=== PATIENT | female | born 1955 | race American Indian/Alaskan Native ===

== ENCOUNTER 2016-08-22 17:04 | Inpatient (IN) | payer MEDICARE, MEDICAID ==
[2016-08-22 17:05] VITALS: BMI 42.3
[2016-08-22] MEDS ORDERED: cefTRIAXone IV 1 gm in Dextros 50 ML IV ONE (17:31)
[2016-08-22] MEDS ORDERED: Azithromycin 500 MG in Sodium Chloride 0.9% 250 ML IV STA (17:32)
[2016-08-22] MEDS ORDERED: Sodium Chloride 0.9% 1,000 ML IV ONE ×2 (17:32→20:53)
[2016-08-22] MEDS ORDERED: Enoxaparin 40 mg Syringe SC STA (17:33)
[2016-08-22] MEDS ORDERED: Albuterol-Ipratrop 3 mg / 0.5 (3 ml) UD INH STA (17:38)
[2016-08-22] MEDS ORDERED: Iodixanol 320 MG/ML 100 ML BOTTLE IV ONE (18:08)
[2016-08-22 18:23] LABS: BASO # 0.1 K/uL (0.0-0.2); BASO % 0.9 % (0.0-2.0); EOS # 0.2 K/uL (0.0-0.7); EOS % 3.1 % (0.0-4.0); HEMATOCRIT 34.7 % (34.0-47.0); LYMPH % 16.3 % (20.0-40.0); MEAN CELL VOLUME 93.7 fL (81.0-99.0); MEAN CORPUSCULAR HEMOGLOBIN 29.9 pg (27.0-31.0); MEAN CORPUSCULAR HGB CONC 31.9 g/dL (33.0-37.0); MEAN PLATELET VOLUME 7.6 fL (7.2-11.7); MONO # 0.7 K/uL (0.0-0.8); MONO % 11.4 % (0.0-10.0); RED CELL DISTRIBUTION WIDTH 16.7 % (11.5-14.5); WHITE BLOOD COUNT 6.1 K/uL (4.8-10.8)
[2016-08-22 18:23] LABS: VENOUS BLOOD GAS BASE EXCESS 9.7 mmol/L (0.0-2.0); VENOUS BLOOD GAS PCO2 69 mmHg (40-60); VENOUS BLOOD PH 7.35 (7.32-7.43)
[2016-08-22 18:29] LABS: BILIRUBIN,TOTAL 0.6 mg/dL (0.2-1.3)
[2016-08-22 18:30] LABS: ALB/GLOB RATIO 1.1 (1.0-2.1); TOTAL PROTEIN 7.4 g/dL (6.3-8.3)
[2016-08-22] MEDS ORDERED: Sodium Chloride 0.9% 1,000 ML ONE (18:33)
[2016-08-22] MEDS ORDERED: cefTRIAXone IV 1 gm in Dextros 50 ML IVPB ONE (18:38)
[2016-08-22] MEDS ORDERED: Enoxaparin 60 mg Syringe ONE (18:39)
[2016-08-22] MEDS ORDERED: Enoxaparin 30 mg Syringe ONE (18:39)
[2016-08-22 18:41] LABS: TROPONIN I 0.014 ng/mL (0.00-0.120)
[2016-08-22] MEDS ORDERED: Albuterol-Ipratrop 3 mg / 0.5 (3 ml) UD ONE (18:45)
--- NOTE | 2016-08-22 18:47 | C.PDOC ---
History Of Present Illness 60 yr old female brought by family members, presents to the ER for deteriorating mental status and lethargy, cough and SOB for the past 1 month. Patient is sent by Dr. Pritchett for an evaluation. Denies nausea, vomiting or dizziness. Time Seen by Provider: 08/22/16 17:29 Chief Complaint (Nursing): Weakness/Neurological Deficit Past Medical History Vital Signs: Last Vital Signs Temp Pulse 86 08/23/16 00:38 Resp 12 08/22/16 22:00 BP 103/72 08/22/16 22:00 Pulse Ox 88 L 08/23/16 00:57 - Medical History PMH: Anemia, COPD, Depression, Diabetes, Gastritis, HTN, Hypercholesterolemia, Malignancy (LUNG MASS) Denies: Chronic Kidney Disease Surgical History: Endoscopy - [facility] Procedures CLOSED [PERCUTANEOUS] [NEEDLE] BIOPSY OF LUNG (02/03/13) ESOPHAGOGASTRODUODENOSCOPY [EGD] W/CLOSED BIOPSY (02/03/13) FIBER-OPTIC BRONCHOSCOPY (04/21/13) INSERTION OF TOTALLY IMPLANTABLE VASC ACCESS DEVIC (09/22/14) LYMPHATIC STRUCT BIOPSY (04/21/13) OPEN BIOPSY OF LUNG (02/03/13) PACKED CELL TRANSFUSION (04/21/13) RADICAL EXCIS SKIN LES (11/21/13) RADIOTHERAPEUT PROC NEC (05/06/13) VENOUS CATHETERIZATION NEC (02/03/13) Family History: States: Unknown Family Hx - Social History Hx Tobacco Use: No Hx Alcohol Use: Yes (Former.) Hx Substance Use: No - Immunization History Hx Tetanus Toxoid Vaccination: No Hx Influenza Vaccination: Yes Hx Pneumococcal Vaccination: Yes Review Of Systems Except As Marked, All Systems Reviewed And Found Negative. (Deteriorating) Constitutional: Positive for: Other ((+) Lethargy) Respiratory: Positive for: Cough, Shortness of Breath Gastrointestinal: Negative for: Nausea, Vomiting Neurological: Positive for: Altered Mental Status. Negative for: Dizziness Physical Exam - Physical Exam Appears: Well, Non-toxic, No Acute Distress, Other ((+) Obese ) Skin: Warm, Dry, No Rash Head: Atraumatic, Normacephalic Oral Mucosa: Moist Neck: Normal, Normal ROM, Supple Chest: Symmetrical, No Tenderness, Other ((+) Metaport on the right upper chest ) Cardiovascular: Rhythm Regular, No Murmur Respiratory: Rhonchi (Scattered ), Wheezing (Diffuse) Gastrointestinal/Abdominal: Normal Exam, Soft, No Tenderness, No Guarding, No Rebound Extremity: Normal ROM, Other ((+) Lower extremity increase edema, Right Leg> Left Leg) Neurological/Psych: Oriented x3, Normal Speech, Normal Motor ED Course And Treatment - Laboratory Results Result Diagrams: 08/22/16 18:04 08/22/16 18:04 Lab Interpretation: Abnormal (Co2 on VBG 69H,) ECG: Interpreted By Me ECG Rhythm: Sinus Rhythm, Nonspecific Changes ECG Interpretation: Normal, Abnormal (low voltages, ? related to small pericardial effusion) Rate From EC O2 Sat by Pulse Oximetry: 88 Pulse Ox Interpretation: Abnormal - Radiology CXR: Interpreted by Me, Viewed By Me CXR Interpretation: Yes: Infiltrates (Patchy infilrates, right lower lobe. ) - CT Scan/US CT - Head Other Rad Studies (CT/US): Read By Radiologist CT - Angio Chest Other Rad Studies (CT/US): Read By Radiologist Progress Note: bipap, IVF's, antibiotics, steroids, duonebs, Lovenox SQ Reevaluation Time: 21:10 Reassessment Condition: Improved - Physician Consult Information Outcome Of Conversation: 2209: Dr. Pritchett Aware. 2109: d.w Dr. Person- ICU Attending- ok to ICU. d/w Medicine Zaki covering pt's for Dr. Pritchett. Critical Care Time - Critical Care Note Total Time (in mins): 90 Documented critical care: time excludes all time spent performing seperately billable procedures. Medical Decision Making Medical Decision Making: PLAN: * CT - Angio Chest, Head * CXR * EKG * VBG * Troponin * CBC * Duoneb INH * Lovenox SC * Solumedrol IV * Zithromax IV * Rocephin IV * Sodium Chloride IV lethargy due to high dose anti-psychotic meds and/or retained C02, sepsis poor o2 sat related to pna, PE, lung resection LLL, improved on bipap and ED treatments Disposition Doctor Will See Patient In The: Hospital Counseled Patient/Family Regarding: Studies Performed, Diagnosis - Disposition Disposition: HOSPITALIZED Disposition Time: 22:30 Condition: SERIOUS - Clinical Impression Clinical Impression: Pneumonia, Pulmonary embolism, Generalized weakness - Scribe Statement The provider has reviewed the documentation as recorded by the Scribgregory Rousseau Provider Attestation: All medical record entries made by the Gisel were at my direction and personally dictated by me. I have reviewed the chart and agree that the record accurately reflects my personal performance of the history, physical exam, medical decision making, and the department course for this patient. I have also personally directed, reviewed, and agree with the discharge instructions and disposition.
[2016-08-22] MEDS ORDERED: Azithromycin 500mg/250ML NS 500 MG/250 ML BAG IVPB ONE (20:35)
--- NOTE | 2016-08-22 20:56 | CT ---
EXAM: CT Head Without Intravenous Contrast CLINICAL HISTORY: 60 years old, female; Signs and symptoms; Altered mental status/memory loss; Confusion or disorientation; Additional info: Deteriorating ms x 2 mo TECHNIQUE: Axial computed tomography images of the head/brain without intravenous contrast. This CT exam was performed using one or more of the following dose reduction techniques: automated exposure control, adjustment of the mA and/or kV according to patient size, and/or use of iterative reconstruction technique. COMPARISON: No relevant prior studies available. FINDINGS: Brain: No hemorrhage. No edema. Bilateral periventricular white matter hypoattenuation most consistent with chronic ischemic small vessel changes. Vascular calcification. Ventricles: No hydrocephalus. Bones: Skull is intact. Sinuses: No acute sinusitis. Trace paranasal sinus disease. Mastoid air cells: No mastoid effusion. IMPRESSION: No CT evidence of acute intracranial abnormality. Evidence of mild chronic ischemic small vessel changes.
--- NOTE | 2016-08-22 21:47 | CT ---
EXAM: CT Angiography Chest With Intravenous Contrast CLINICAL HISTORY: 60 years old, female; Signs and symptoms and abnormal findings; Other: Hypoxia; Shortness of breath; Additional info: Lung ca, r leg edema, hypoxic, ? pe TECHNIQUE: Axial computed tomographic angiography images of the chest with intravenous contrast using pulmonary embolism protocol. This CT exam was performed using one or more of the following dose reduction techniques: automated exposure control, adjustment of the mA and/or kV according to patient size, and/or use of iterative reconstruction technique. MIP reconstructed images were created and reviewed. Coronal and sagittal reformatted images were created and reviewed. CONTRAST: 100 mL of visipaque 320 administered intravenously. COMPARISON: CT - CHEST, ABDOMEN W/WO CONTRAST 01/30/2016 2:43:55 PM FINDINGS: Significant collateral vessels noted in the neck and left hemithorax. Evidence of prior partial left pneumonectomy. Extensive left lower lobe atelectasis. Right lower lobe atelectasis. Thickening of interlobular septa and ground glass opacity involving lung rodriguez, right greater than left. No lung mass visualized. Small pericardial effusion. Normal heart size. Atherosclerosis. No aortic aneurysm. Marked shift of the heart and secondary to prior pneumonectomy as well as atelectasis. Evaluation of the pulmonary arteries technically limited, multiple questionable areas of filling defect visualized in segmental branches on the right. No significant lymphadenopathy. IMPRESSION: Evaluation of the pulmonary arteries technically limited, multiple questionable areas of filling defect visualized in segmental branches on the right. Followup evaluation recommended. Evidence of prior partial left pneumonectomy. Extensive left lower lobe atelectasis. Right lower lobe atelectasis. Thickening of interlobular septa and ground glass opacity involving lung rodriguez, right greater than left. No lung mass visualized. Small pericardial effusion. Marked shift of the heart and secondary to prior pneumonectomy as well as atelectasis.
--- NOTE | 2016-08-22 22:28 | CP.PCM.HP ---
History of Present Illness - History of Present Illness History of Present Illness: CC - Sent by Dr. Pritchett - feel weak, lethargic, "cold symptoms" HPI - Patient is a 60 year old female with PMHx of COPD, Depression, Type two diabetes mellitus, HTN, HLD, Lung Cancer with lobectomy, who presents to the ED after being brought in by family members for deteriorating mental status and lethargy, cough and SOB for the past few days. Pts daughter, Ronda, was reached over the phone by this show card writer. The pt had been discharged one month ago from [facility] according to the daughter. The patient had been "doing well - using her home oxygen but getting around ok with her walker" until the last few days. Per daughter the whole family has had colds recently, with symptoms of "fever (subjective), chills, dry cough, sneezing, headache." Pt started getting these symptoms a few days ago. Pt has also been complaining of increased leg swelling recently, with increased pain/difficulty ambulation, and increased bedrest. These symptoms were associated with shortness of breath despite her 3 liters of home O2. Daughter has also noticed pt "slurring words recently, and change in orientation level. Daughter states pt is normally AAOx3. She called Dr. Pritchett to get her treated before symptoms became worse and she "landed back in the hospital." Dr. Pritchett advised the pt to go the hospital. Pt on home oxygen : 3 liters, and uses walker to ambulate at baseline. PMHx: Anemia, COPD, Depression, DM, Gastritis, HTN, HLD, Lung CA, Shingles (2015 ), PAD, disc herniation, PSurgHx: Right Great toe amputation, Right pretibial skin graft due "ulcers", Left hip "mass" removed (2013), Recent cervical spine surgery FMHx: Father- Lung CA, Mother - Breast CA, Heart disease Meds: (confirmed with daughter, Ronda, over the phone - will call Rachel'karely in AM to verify) Buproprion 75mg PO Daily, Plavix 75mg PO Daily, Atatrax 25mg PO Q6H, Famtodine 20mg PO Daily, Sitagliptin 100mg PO daily, Oxybutynin 5mg PO daily, Metolazone 5mg daily, Diazepam 10mg PO Q8H, Levocitirizine 5mg Daily Allergies: NKDA Social Hx: lives with daughter (Ronda). 2/3 pack per day tobacco for 40yrs ( quit 5 years ago), 1/2 pint of gin and 2 beers for 40yrs (Current rare ETOH use) , denies any illicit drug use. PMD: Pritchett Present on Admission - Present on Admission Any Indicators Present on Admission: No Review of Systems - Constitutional Constitutional: Chills, Fever, Weakness - EENT Eyes: absent: Change in Vision Ears: absent: Decreased Hearing - Cardiovascular Cardiovascular: Dyspnea, Dyspnea on Exertion, Edema (legs). absent: Chest Pain - Respiratory Respiratory: Cough (dry x "few days"), Dyspnea, Dyspnea on Exertion, Chest Congestion - Gastrointestinal Gastrointestinal: absent: Abdominal Pain, Nausea, Vomiting - Genitourinary Genitourinary: Difficulty Urinating. absent: Dysuria - Menstruation Menstruation: Post Menopausal - Musculoskeletal Musculoskeletal: Muscle Weakness. absent: Numbness, Tingling - Neurological Neurological: Weakness - Endocrine Endocrine: absent: Polydipsia, Polyphagia, Polyuria Past Patient History - Past Medical History & Family History Past Medical History?: Yes - Past Social History Smoking Status: Former Smoker - CARDIAC Hx Hypercholesterolemia: Yes Hx Hypertension: Yes - PULMONARY Hx Chronic Obstructive Pulmonary Disease (COPD): Yes - NEUROLOGICAL Hx Neurological Disorder: No - HEENT Hx HEENT Problems: Yes (wears glasses) - RENAL Hx Chronic Kidney Disease: No - ENDOCRINE/METABOLIC Hx Diabetes Mellitus Type 2: Yes - HEMATOLOGICAL/ONCOLOGICAL Hx Anemia: Yes - INTEGUMENTARY Other/Comment: mass left hip/REMOVED FEB 2014 - MUSCULOSKELETAL/RHEUMATOLOGICAL Hx Falls: No - GASTROINTESTINAL Hx Gastritis: Yes - GENITOURINARY/GYNECOLOGICAL Hx Genitourinary Disorders: Yes Hx Incontinence: Yes (ON DITROPAN) - PSYCHIATRIC Hx Depression: Yes Hx Substance Use: No - SURGICAL HISTORY Hx Surgeries: Yes Hx Amputation: Yes (RT.FOOT 2 TOES) Hx Vascular Access Device: Yes (port-a-cath insertion RCW) Other/Comment: debridment of ulcer on right leg, rt hip sx - ANESTHESIA Hx Anesthesia: Yes Hx Anesthesia Reactions: No Hx Malignant Hyperthermia: No Meds Allergies/Adverse Reactions: Allergies Allergy/AdvReac Type Severity Reaction Status Date / Time No Known Allergies Allergy Verified 06/09/17 17:19 Physical Exam - Constitutional Appears: No Acute Distress, Chronically Ill Additional comments: Large body habitus - Head Exam Head Exam: ATRAUMATIC, NORMOCEPHALIC - Eye Exam Eye Exam: EOMI - ENT Exam ENT Exam: Mucous Membranes Moist - Neck Exam Additional comments: Large body habitus JVD appreciation difficult - Respiratory Exam Respiratory Exam: Rhonchi, Wheezes. absent: Accessory Muscle Use, Clear to Auscultation Bilateral Additional comments: Pt on bipap at bedside, - Cardiovascular Exam Cardiovascular Exam: REGULAR RHYTHM, +S1, +S2 Additional comments: Port noted in upper chest - GI/Abdominal Exam GI & Abdominal Exam: Soft. absent: Distended, Guarding - Extremities Exam Extremities exam: Positive for: pedal edema, pedal pulses present Additional comments: right leg increased edema over left - Back Exam Back exam: NORMAL INSPECTION - Neurological Exam Neurological exam: Alert - Psychiatric Exam Psychiatric exam: Normal Affect, Normal Mood - Skin Skin Exam: Dry, Normal Color, Warm Results - Vital Signs Recent Vital Signs: Last Vital Signs Temp Pulse 94 H 08/22/16 18:49 Resp 17 08/22/16 18:23 BP 87/54 L 08/22/16 18:23 Pulse Ox 88 L 08/22/16 19:50 - Labs Result Diagrams: 08/23/16 06:26 08/23/16 06:24 Labs: Laboratory Results - last 24 hr 08/22/16 08/22/16 08/22/16 17:14 18:00 18:04 WBC 6.1 RBC 3.71 L Hgb 11.1 Hct 34.7 MCV 93.7 D MCH 29.9 MCHC 31.9 L RDW 16.7 H Plt Count 244 MPV 7.6 Neut % (Auto) 68.3 Lymph % (Auto) 16.3 L Mcculloch % (Auto) 11.4 H Eos % (Auto) 3.1 Baso % (Auto) 0.9 Neut # 4.1 Lymph # 1.0 Mcculloch # 0.7 Eos # 0.2 Baso # 0.1 APTT pO2 22 L VBG pH 7.35 VBG pCO2 69 H* VBG HCO3 30.8 VBG Total CO2 40.2 H VBG O2 Sat (Calc) 37.9 L VBG Base Excess 9.7 H VBG Potassium 3.0 L Sodium 143.0 Chloride 106.0 Glucose 110 H Lactate 0.9 Crit Value Called To Dr lee Crit Value Called By Juvencio galan Crit Value Read Back Y Blood Gas Notified Time 1823 Potassium Carbon Dioxide Anion Gap BUN Creatinine Est GFR ( Amer) Est GFR (Non-Af Amer) POC Glucose (mg/dL) 170 H Random Glucose Hemoglobin A1c Calcium Total Bilirubin AST ALT Alkaline Phosphatase Troponin I Total Protein Albumin Globulin Albumin/Globulin Ratio Triglycerides Cholesterol LDL Cholesterol Direct HDL Cholesterol Venous Blood Potassium 3.0 L Blood Type Antibody Screen 08/22/16 08/22/16 08/22/16 18:04 18:04 18:04 WBC RBC Hgb Hct MCV MCH MCHC RDW Plt Count MPV Neut % (Auto) Lymph % (Auto) M[place]ulloch % (Auto) Eos % (Auto) Baso % (Auto) Neut # Lymph # M[place] # Eos # Baso # APTT 31 pO2 VBG pH VBG pCO2 VBG HCO3 VBG Total CO2 VBG O2 Sat (Calc) VBG Base Excess VBG Potassium Sodium 143 Chloride 99 Glucose Lactate Crit Value Called To Crit Value Called By Crit Value Read Back Blood Gas Notified Time Potassium 3.0 L Carbon Dioxide 35 H Anion Gap 12 BUN 17 Creatinine 1.3 H Est GFR ( Amer) 50 Est GFR (Non-Af Amer) 42 POC Glucose (mg/dL) Random Glucose 121 H Hemoglobin A1c 6.5 Calcium 9.0 Total Bilirubin 0.6 AST 20 ALT 20 Alkaline Phosphatase 91 Troponin I 0.0140 Total Protein 7.4 Albumin 3.8 Globulin 3.6 Albumin/Globulin Ratio 1.1 Triglycerides 139 Cholesterol 205 H LDL Cholesterol Direct 135 H HDL Cholesterol 36 Venous Blood Potassium Blood Type Antibody Screen 08/22/16 08/22/16 18:13 18:36 WBC RBC Hgb Hct MCV MCH MCHC RDW Plt Count MPV Neut % (Auto) Lymph % (Auto) [place]och % (Auto) Eos % (Auto) Baso % (Auto) Neut # Lymph # M[place]ulloch # Eos # Baso # APTT pO2 VBG pH VBG pCO2 VBG HCO3 VBG Total CO2 VBG O2 Sat (Calc) VBG Base Excess VBG Potassium Sodium Chloride Glucose Lactate Crit Value Called To Crit Value Called By Crit Value Read Back Blood Gas Notified Time Potassium Carbon Dioxide Anion Gap BUN Creatinine Est GFR ( Amer) Est GFR (Non-Af Amer) POC Glucose (mg/dL) 151 H Random Glucose Hemoglobin A1c Calcium Total Bilirubin AST ALT Alkaline Phosphatase Troponin I Total Protein Albumin Globulin Albumin/Globulin Ratio Triglycerides Cholesterol LDL Cholesterol Direct HDL Cholesterol Venous Blood Potassium Blood Type O NEGATIVE Antibody Screen Negative Assessment & Plan - Assessment and Plan (Free Text) Assessment: SOB Questionable PE Plan: SOB 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 Recommend follow up. Partial prior pneumonectomy on left. Extensive LLL atelectasis. RLL atelectasis as well. Thickening of interlobular septa and ground glass opacity involving lung rodriguez, right greater than left. No lung mass. Small pericardial effusion. Marked shift of heart and secondary to prior pneumonectomy. (see full report) BIPAP O2 Duonebs ONCE in ED Solumedrol 125mg IV ONCE in ED Possible HAP Pt resident at [facility], d/c one month ago CXR (08/22/16): Patchy infiltrates on right side lower lobe (wet read, f/u official report) Start Cefepime 1gm IVPB Q8H Start Doxycycline 100mg IVPB Q12H Azithromycin 500mg IV given once in ED Ceftiaxone 1gm IV once in ED Possible PE Ct Chest (08/22/16): Evaluation of pulmonary arteries limited, multiple questionable areas of filling defect in branches on right. Recommend follow up. (see full report) Lovenox 80mg SC Q12H f/u Bilateral Venous dopplers f/u AM BUN/Cr to eval renal function (i.e. VQ scan vs. repeat CTA) AMS Baseline AAOx3 according to daughter CT Head (08/22/16): negative Monitor Hx of Urinary retention Quinones catheter placed in ED DM - Hold Home Januvia 100mg PO daily - HBA1c: 6.5 - Insulin sliding scale - medium - Accuchecks Hx of Hypertension - hypotensive since admission - NS 1 L x 2 given in ED - Monitor BP Hx of Lung CA - Xray shows LLL consolidation - Continue Oxycodone 10mg PO q6hrs prn pain, moderate - Colace 100mg PO BID - Consulted Palliative Care for goals of care, help appreciated Abnormal UA UA (08/22/16): LE 1+, Nitrate positive, WBC 14, blood 1+ Hypokalemia 3.0 on initial lab work, repleted KCL 20 meq x 2 IVPB Hx of Anemia H/H 11.1/34.7, stable In line with Baseline Monitor Prophylaxis Protonix 40 mg PO Daily Lovenox 80mg SC Q12H SCD Will discuss with Dr. Pritchett Plan evaluated along with Dr. Person, side show entertainer Kashif Salcedo, PGY-1
[2016-08-22 23:11] LABS: RBC URINE 5 /hpf (0-3); URINE BACTERIA FEW (<OCC); URINE BILIRUBIN NEGATIVE (NEGATIVE); URINE COLOR Yellow (YELLOW); URINE GLUCOSE (UA) NORMAL (Normal); URINE KETONE NEGATIVE (NEGATIVE); URINE PROTEIN NEGATIVE (NEGATIVE); URINE UROBILINOGEN NORMAL mg/dL (0.2-1.0); WBC URINE 14 /hpf (0-5)
[2016-08-22 23:12] LABS: URINE BLOOD 1+ (NEGATIVE); URINE LEUKOCYTE ESTERASE 1+ Leu/uL (Negative)
--- NOTE | 2016-08-23 00:17 | CP.PCM.CON ---
History of Present Illness - History of Present Illness History of Present Illness: 60 F with history of anemia, COPD, Depression, DM, Gastritis, HTN, HLD, Lung CA , Shingles (2014), disc herniation cervical, spine surg some time post may 2016 recently in rehab and came to home about a wk before started to have some c /o sob, cough, subjective fevers. Patient was sent in to ER for eval. Initially patient noticed to be hypotensive, lethargic, hypoimic and was started on bipap , ivf bolus of 2 lit given. BP improved, normal lactate levels. CTA pe study done due to technical difficulties filling defects could not be ruled out and were suspected on right side, small infiltrate vs atelectesis on right and chronic atelectesis on the left with lobectomy. Spine wires also noticed. Med list verified with daughter. PMHx: Anemia, COPD, Depression, DM, Gastritis, HTN, HLD, Lung CA, Shingles (2014 ), disc herniation cervical, spine surg PSurgHx: Right Great toe amputation, Right pretibial skin graft due "ulcers", Left hip "mass" removed (2013), spine surg post May 2016 FMHx: Father- Lung CA, Mother - Breast CA, Heart disease Meds: Buproprion 75mg PO BID, Plavx 75mg PO Daily, Albuterol 2 INH prn, Famtodine 20mg PO Daily, Sitagliptin 100mg PO daily, Metolazone 5mg daily, Furosemide 20mg Daily, Oxycodone 10mg q6prn, diazepam 10mg tid, gabapentin 300mg tid Allergies: NKDA Social Hx: lives with daughter (Ronda). 2/3 pack per day tobacco for 40yrs ( quit 5 years ago), 1/2 pint of gin and 2 beers for 40yrs, in the past Review of Systems - Review of Systems All systems: reviewed and no additional remarkable complaints except (HPI) Past Patient History - Past Medical History & Family History Past Medical History?: Yes - Past Social History Smoking Status: Former Smoker Alcohol: None Drugs: Denies Home Situation {Lives}: With Family Domestic Violence: Negative - CARDIAC Hx Hypercholesterolemia: Yes Hx Hypertension: Yes - PULMONARY Hx Chronic Obstructive Pulmonary Disease (COPD): Yes - NEUROLOGICAL Hx Neurological Disorder: No - HEENT Hx HEENT Problems: Yes (wears glasses) - RENAL Hx Chronic Kidney Disease: No - ENDOCRINE/METABOLIC Hx Diabetes Mellitus Type 2: Yes - HEMATOLOGICAL/ONCOLOGICAL Hx Anemia: Yes - INTEGUMENTARY Other/Comment: mass left hip/REMOVED FEB 2014 - MUSCULOSKELETAL/RHEUMATOLOGICAL Hx Falls: No - GASTROINTESTINAL Hx Gastritis: Yes - GENITOURINARY/GYNECOLOGICAL Hx Genitourinary Disorders: Yes Hx Incontinence: Yes (ON DITROPAN) - PSYCHIATRIC Hx Depression: Yes Hx Substance Use: No - SURGICAL HISTORY Hx Surgeries: Yes Hx Amputation: Yes (RT.FOOT 2 TOES) Hx Vascular Access Device: Yes (port-a-cath insertion RCW) Other/Comment: debridment of ulcer on right leg, rt hip sx - ANESTHESIA Hx Anesthesia: Yes Hx Anesthesia Reactions: No Hx Malignant Hyperthermia: No Meds Allergies/Adverse Reactions: Allergies Allergy/AdvReac Type Severity Reaction Status Date / Time No Known Allergies Allergy Verified 08/22/16 17:19 - Medications Medications: Current Medications Doxycycline Hyclate 100 mg/ (Sodium Chloride) 100 mls @ 100 mls/hr IVPB Q12H RICKY Cefepime HCl 1 gm/ Dextrose 50 mls @ 100 mls/hr IVPB Q8H RICKY Pantoprazole Sodium (Protonix Ec Tab) 40 mg PO DAILY RICKY Physical Exam - Additional Findings Additional findings: * HEENT TALAT, pupils about 4mm in size * Neck short, has cervical collar * CVS Regular, no murmur, gallop, port for iv on right side of chest * PA obese, nt, bs present * Ext chronic skin changes of venous insufficiency in both legs * 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, responds to simple commands, moves all extremities * Skin turgor reduced in upper body slightly Results - Vital Signs Recent Vital Signs: Last Vital Signs Temp Pulse 86 08/22/16 22:00 Resp 12 08/22/16 22:00 BP 103/72 08/22/16 22:00 Pulse Ox 98 08/22/16 22:00 - Labs Result Diagrams: 08/22/16 18:04 08/22/16 18:04 Labs: Laboratory Results - last 24 hr 08/22/16 23:06 Urine Color Yellow Urine Clarity Clear Urine pH 5.0 Ur Specific [place] 1.032 H Urine Protein Negative Urine Glucose (UA) Normal Urine Ketones Negative Urine Blood 1+ H Urine Nitrate Positive H Urine Bilirubin Negative Urine Urobilinogen Normal Ur Leukocyte Esterase 1+ H Urine WBC (Auto) 14 H Urine RBC (Auto) 5 H Urine Bacteria Few H Assessment & Plan - Assessment and Plan (Free Text) Assessment: * Lethargy weakness, sob DD of PNA, worsening co2 retention, ? other infection, patient's on meds ie diazepam/gabapentin/antidepressent/allergy meds/diuretics * Hypokalemia, increase bicarb, CO2 retention with maintained ph likely form metlozone/lasix * Possible UTI * Left atelectesis, right pna * Possible PE, emperic lovenox started contine further testing for diagnosis/DD with venous Doppler, repeat CTA vs v/q scan Plan: * Hold sedating meds * Doxy and cefepime * Therapeutic lovenox * Venous doppler, PE study, v/q scan * GI/DVT prophylaxis * Bipap over night * See orders for detail
[2016-08-23] MEDS: Sodium Chloride 0.9% 1,000 ML IV SCH ×3 (01:10→17:20)
[2016-08-23 06:39] LABS: BASO % 0.1 % (0.0-2.0); EOS % 0.1 % (0.0-4.0); HEMATOCRIT 36.7 % (34.0-47.0); LYMPH # 0.9 K/uL (1.0-4.3); LYMPH % 10.1 % (20.0-40.0); MEAN CELL VOLUME 94.6 fL (81.0-99.0); MEAN CORPUSCULAR HEMOGLOBIN 29.8 pg (27.0-31.0); MEAN CORPUSCULAR HGB CONC 31.5 g/dL (33.0-37.0); MEAN PLATELET VOLUME 7.7 fL (7.2-11.7); MONO # 0.1 K/uL (0.0-0.8); MONO % 1.6 % (0.0-10.0); NRBC % 0.1 % (0.0-2.0); RED CELL DISTRIBUTION WIDTH 16.6 % (11.5-14.5); WHITE BLOOD COUNT 9.1 K/uL (4.8-10.8)
[2016-08-23 06:41] LABS: CHLORIDE 104 mmol/L (98-107); POTASSIUM 4.5 mmol/L (3.6-5.2); SODIUM 137 mmol/L (132-148)
[2016-08-23 06:43] LABS: BILIRUBIN,TOTAL 0.5 mg/dL (0.2-1.3); GFR AFRICAN-AMERICAN > 60
[2016-08-23 06:44] LABS: ALB/GLOB RATIO 0.9 (1.0-2.1); ALKALINE PHOSPHATASE 83 U/L (38-126); ALT/SGPT 24 U/L (9-52); AST/SGOT 31 U/L (14-36); BLOOD UREA NITROGEN 15 mg/dL (7-17); CARBON DIOXIDE 24 mmol/L (22-30); GLUCOSE,RANDOM 163 mg/dL (65-105); TOTAL PROTEIN 7.3 g/dL (6.3-8.3)
[2016-08-23 06:45] LABS: CALCIUM 7.9 mg/dl (8.6-10.4); MAGNESIUM 1.7 mg/dL (1.6-2.3)
--- NOTE | 2016-08-23 08:44 | RAD ---
HISTORY: cough/wheezing, h/o L lung CA COMPARISON: No prior. FINDINGS: LUNGS: Venous congestion. Prominent consolidative opacity seen within the right hilar and infrahilar regions as well as within the left mid to lower lung. Suggestion of a loculated small to moderate left pleural effusion. Bilateral hilar prominence. Tubing projects over the upper meir thoraces, possibly external. Port device projecting over the right meir thorax. PLEURA: As above. CARDIOVASCULAR: Cardiomegaly. OSSEOUS STRUCTURES: No significant abnormalities. VISUALIZED UPPER ABDOMEN: Normal. OTHER FINDINGS: None. IMPRESSION: Venous congestion. Prominent consolidative opacity seen within the right hilar and infrahilar regions as well as within the left mid to lower lung. Suggestion of a loculated small to moderate left pleural effusion. Bilateral hilar prominence. Tubing projects over the upper meir thoraces, possibly external. Port device projecting over the right meir thorax.
[2016-08-23] MEDS: Pantoprazole 40 mg EC Tab PO SCH (09:54)
[2016-08-23] MEDS ORDERED: Enoxaparin 80 mg Syringe SC SCH (10:00)
[2016-08-23 10:45] LABS: ABG ALLEN TEST PO; ARTERIAL BLOOD HGB O2 SAT 95.4 % (95.0-98.0); CARBOXYHEMOGLOBIN 1.9 % (0.5-1.5); DRAW SITE RRA; HHB 1.7 % (0.0-5.0)
--- NOTE | 2016-08-23 11:15 | CP.PCM.PN ---
Subjective - Date & Time of Evaluation Date of Evaluation: 08/23/16 Time of Evaluation: 16:00 - Subjective Subjective: Dr. Pritchett progress note: Patient seen in ICU. She is on nasal canula. She says she came here via ambulance because of worsening weakness and diffaculty breathing. She says that she did have chills but no fevers. Objective - Vital Signs/Intake and Output Vital Signs (last 24 hours): Temp Pulse Resp BP Pulse Ox 97.8 F 82 12 84/55 L 96 08/23/16 04:00 08/23/16 11:00 08/23/16 05:42 08/23/16 05:42 08/23/16 05:42 Intake and Output: 08/23/16 08/23/16 06:59 18:59 Intake Total 1100 Output Total 600 Balance 500 - Medications Medications: Current Medications Enoxaparin Sodium (Lovenox) 80 mg SC Q12 [facility] Doxycycline Hyclate 100 mg/ (Sodium Chloride) 100 mls @ 100 mls/hr IVPB Q12H [facility] Last Admin: 08/23/16 02:00 Dose: 100 mls/hr Cefepime HCl 1 gm/ Dextrose 50 mls @ 100 mls/hr IVPB Q8H [facility] Last Admin: 08/23/16 01:28 Dose: 100 mls/hr Sodium Chloride (Sodium Chloride 0.9%) 1,000 mls @ 125 mls/hr IV .Q8H [facility] Last Admin: 08/23/16 01:10 Dose: 125 mls/hr Insulin Human Regular (Novolin R) 0 unit SC ACHS [facility] PRN Reason: Protocol Pantoprazole Sodium (Protonix Ec Tab) 40 mg PO DAILY R[facility] - Labs Labs: 08/23/16 06:26 08/23/16 06:24 APTT 31 SECONDS (21-34) 08/22/16 18:04 - Constitutional Appears: Non-toxic - Head Exam Head Exam: NORMAL INSPECTION - Eye Exam Eye Exam: Normal appearance - Respiratory Exam Respiratory Exam: Clear to Ausculation Bilateral. absent: Rales, Rhonchi, Wheezes - Cardiovascular Exam Cardiovascular Exam: REGULAR RHYTHM, RRR, +S1, +S2. absent: Gallop, Rubs - GI/Abdominal Exam GI & Abdominal Exam: Soft, Normal Bowel Sounds. absent: Distended, Guarding, Tenderness - Extremities Exam Extremities Exam: Normal Inspection - Back Exam Back Exam: NORMAL INSPECTION - Neurological Exam Neurological Exam: Alert - Psychiatric Exam Psychiatric exam: Normal Affect, Normal Mood - Skin Skin Exam: Normal Color Assessment and Plan - Assessment and Plan (Free Text) Assessment: SOB 08/23: Patient admitted to ICU, on IV antibiotics and also on BIPAP as needed, she is also on theraputic Lovenox for probably PE as well. Pending official results of lower extremity doppler. Admit to ICU manager intermediate smoking hx, COPD Troponin negative x 1 ABG: CO2 retention, bicarb elevated, pH WNL CXR (08/22/16): Patchy infiltrates on right side lower lobe (wet read, f/u official report) Ct Chest (08/22/16): Evaluation of pulmonary arteries limited, multiple questionable areas of filling defect in branches on right. Recommend follow up. Partial prior pneumonectomy on left. Extensive LLL atelectasis. RLL atelectasis as well. Thickening of interlobular septa and ground glass opacity involving lung rodriguez, right greater than left. No lung mass. Small pericardial effusion. Marked shift of heart and secondary to prior pneumonectomy. (see full report) BIPAP O2 Duonebs ONCE in ED Solumedrol 125mg IV ONCE in ED Possible HAP Pt resident at [place], d/c one month ago CXR (08/22/16): Patchy infiltrates on right side lower lobe (wet read, f/u official report) Start Cefepime 1gm IVPB Q8H Start Doxycycline 100mg IVPB Q12H Azithromycin 500mg IV given once in ED Ceftiaxone 1gm IV once in ED Possible PE Ct Chest (08/22/16): Evaluation of pulmonary arteries limited, multiple questionable areas of filling defect in branches on right. Recommend follow up. (see full report) Lovenox 80mg SC Q12H f/u Bilateral Venous dopplers f/u AM BUN/Cr to eval renal function (i.e. VQ scan vs. repeat CTA) AMS Baseline AAOx3 according to daughter CT Head (08/22/16): negative Monitor Hx of Urinary retention Quinones catheter placed in ED DM - Hold Home Januvia 100mg PO daily - HBA1c: 6.5 - Insulin sliding scale - medium - Accuchecks Hx of Hypertension - hypotensive since admission - NS 1 L x 2 given in ED - Monitor BP Hx of Lung CA - Xray shows LLL consolidation - Continue Oxycodone 10mg PO q6hrs prn pain, moderate - Colace 100mg PO BID - Consulted Palliative Care for goals of care, help appreciated Abnormal UA UA (08/22/16): LE 1+, Nitrate positive, WBC 14, blood 1+ Hypokalemia 3.0 on initial lab work, repleted KCL 20 meq x 2 IVPB Hx of Anemia H/H 11.1/34.7, stable In line with Baseline Monitor Prophylaxis Protonix 40 mg PO Daily Lovenox 80mg SC Q12H [facility]
--- NOTE | 2016-08-23 14:22 | CP.CCUPN ---
CCU Subjective - Physician Review Events Since Last Encounter (Free Text): 08/23/16 14:20 Patient seen and examined in the intensive care unit. Case discussed with house staff in the morning rounds. Patient is much more awake and responsive. Sitting comfortably in no acute distress and is off BiPAP complaining of slight cough but denies fever or chills Started on Lovenox for questionable filling defects on CAT scan of the chest CCU Objective - Vital Signs / Intake & Output Vital Signs (Last 4 hours): Vital Signs Pulse 08/23/16 11:00 82 Intake and Output (Last 8hrs): Intake & Output 08/22/16 08/23/16 08/23/16 22:59 06:59 14:59 Intake Total 1100 Output Total 600 Balance 500 Weight 203 lb 6 oz Intake: Intake, IV Amount 1100 Left Forearm 750 Right Distal Port 150 Antecubital Right Proximal Port 200 Antecubital Output: Urine 600 Urethral (Quinones) 600 Other: Voiding Method Indwelling Catheter - Physical Exam Head: Positive for: Atraumatic, Normocephalic Mouth: Positive for: Moist Mucous Membranes Neck: Positive for: Normal Range of Motion Respiratory/Chest: Positive for: Decreased Breath Sounds Cardiovascular: Positive for: Regular Rate and Rhythm Abdomen: Positive for: Normal Bowel Sounds Upper Extremity: Positive for: Normal Inspection Lower Extremity: Positive for: Edema Psychiatric: Positive for: Alert, Oriented x 3 - Medications Active Medications: Active Medications Generic Name Dose Route Start Last Admin Trade Name Freq PRN Reason Stop Dose Admin Enoxaparin Sodium 80 mg 08/23/16 10:00 Lovenox SC Q12 [facility] Enoxaparin Sodium 40 mg 08/24/16 10:00 Lovenox SC DAILY [facility] Doxycycline Hyclate 100 mg/ 100 mls @ 100 mls/hr 08/22/16 23:45 08/23/16 02: 00 Sodium Chloride IVPB 100 mls/hr Q12H [facility] Administration Cefepime HCl 1 gm/ Dextrose 50 mls @ 100 mls/hr 08/22/16 23:45 08/23/16 01:28 IVPB 100 mls/hr Q8H [facility] Administration Sodium Chloride 1,000 mls @ 125 mls/hr 08/23/16 01:00 08/23/16 01:10 Sodium Chloride 0.9% IV 125 mls/hr .Q8H [facility] Administration Insulin Human Regular 0 unit 08/23/16 07:30 Novolin R SC ACHS [facility] Protocol Pantoprazole Sodium 40 mg 08/23/16 10:00 Protonix Ec Tab PO DAILY RICKY - Patient Studies Lab Studies: Lab Studies 08/23/16 08/23/16 08/23/16 Range/Units 11:58 10:42 07:23 WBC (4.8-10.8) K/uL RBC (3.80-5.20) Mil/uL Hgb (11.0-16.0) g/dL Hct (34.0-47.0) % MCV (81.0-99.0) fL MCH (27.0-31.0) pg MCHC (33.0-37.0) g/dL RDW (11.5-14.5) % Plt Count (130-400) K/uL MPV (7.2-11.7) fL Neut % (Auto) (50.0-75.0) % Lymph % (Auto) (20.0-40.0) % [place] % (Auto) (0.0-10.0) % Eos % (Auto) (0.0-4.0) % Baso % (Auto) (0.0-2.0) % Neut # (1.8-7.0) K/uL Lymph # (1.0-4.3) K/uL [place] # (0.0-0.8) K/uL Eos # (0.0-0.7) K/uL Baso # (0.0-0.2) K/uL Puncture Site Rra pCO2 60 H (35-45) mm/Hg pO2 88 (80-100) mm/Hg HCO3 26.5 (21-28) mmol/L ABG pH 7.30 L (7.35-7.45) ABG Total CO2 31.3 H (22-28) mmol/L ABG O2 Saturation 98.2 H (95-98) % ABG Base Excess 2.0 (-2.0-3.0) mmol/L ABG Hemoglobin 10.8 L (11.7-17.4) g/dL ABG Carboxyhemoglobin 1.9 H (0.5-1.5) % POC ABG HHb (Measured) 1.7 (0.0-5.0) % ABG Methemoglobin 1.0 (0.0-3.0) % Misael Test Po A-a O2 Difference 122.0 mm/Hg Respiratory Index 1.4 Hgb O2 Saturation 95.4 (95.0-98.0) % FiO2 40.0 % Inspiratory BiPAP 12 Expiratory BiPAP 6 Sodium (132-148) mmol/L Potassium (3.6-5.2) mmol/L Chloride (98-107) mmol/L Carbon Dioxide (22-30) mmol/L Anion Gap (10-20) BUN (7-17) mg/dL Creatinine (0.7-1.2) MG/DL Est GFR ( Amer) Est GFR (Non-Af Amer) POC Glucose (mg/dL) 151 H 175 H (65-110) mg/dL Random Glucose (65-105) mg/dL Calcium (8.6-10.4) mg/dl Phosphorus (2.5-4.5) mg/dL Magnesium (1.6-2.3) mg/dL Total Bilirubin (0.2-1.3) mg/dL AST (14-36) U/L ALT (9-52) U/L Alkaline Phosphatase (38-126) U/L Troponin I (0.00-0.120) ng/mL Total Protein (6.3-8.3) g/dL Albumin (3.5-5.0) g/dL Globulin (2.2-3.9) gm/dL Albumin/Globulin Ratio (1.0-2.1) Procalcitonin (0.19-0.49) NG/ML Urine Color (YELLOW) Urine Clarity (Clear) Urine pH (5.0-8.0) Ur Specific [place] (1.003-1.030) Urine Protein (NEGATIVE) mg/dL Urine Glucose (UA) (Normal) mg/dL Urine Ketones (NEGATIVE) mg/dL Urine Blood (NEGATIVE) Urine Nitrate (NEGATIVE) Urine Bilirubin (NEGATIVE) Urine Urobilinogen (0.2-1.0) mg/dL Ur Leukocyte Esterase (Negative) Shalini/uL Urine WBC (Auto) (0-5) /hpf Urine RBC (Auto) (0-3) /hpf Urine Bacteria (<OCC) 06/10/17 06/10/17 06/10/17 Range/Units 06:26 06:24 06:24 WBC 9.1 (4.8-10.8) K/uL RBC 3.88 (3.80-5.20) Mil/uL Hgb 11.6 (11.0-16.0) g/dL Hct 36.7 (34.0-47.0) % MCV 94.6 (81.0-99.0) fL MCH 29.8 (27.0-31.0) pg MCHC 31.5 L (33.0-37.0) g/dL RDW 16.6 H (11.5-14.5) % Plt Count 207 (130-400) K/uL MPV 7.7 (7.2-11.7) fL Neut % (Auto) 88.1 H (50.0-75.0) % Lymph % (Auto) 10.1 L (20.0-40.0) % [place] % (Auto) 1.6 (0.0-10.0) % Eos % (Auto) 0.1 (0.0-4.0) % Baso % (Auto) 0.1 (0.0-2.0) % Neut # 8.0 H (1.8-7.0) K/uL Lymph # 0.9 L (1.0-4.3) K/uL [place] # 0.1 (0.0-0.8) K/uL Eos # 0.0 (0.0-0.7) K/uL Baso # 0.0 (0.0-0.2) K/uL Puncture Site pCO2 (35-45) mm/Hg pO2 (80-100) mm/Hg HCO3 (21-28) mmol/L ABG pH (7.35-7.45) ABG Total CO2 (22-28) mmol/L ABG O2 Saturation (95-98) % ABG Base Excess (-2.0-3.0) mmol/L ABG Hemoglobin (11.7-17.4) g/dL ABG Carboxyhemoglobin (0.5-1.5) % POC ABG HHb (Measured) (0.0-5.0) % ABG Methemoglobin (0.0-3.0) % Misael Test A-a O2 Difference mm/Hg Respiratory Index Hgb O2 Saturation (95.0-98.0) % FiO2 % Inspiratory BiPAP Expiratory BiPAP Sodium 137 (132-148) mmol/L Potassium 4.5 (3.6-5.2) mmol/L Chloride 104 (98-107) mmol/L Carbon Dioxide 24 (22-30) mmol/L Anion Gap 15 (10-20) BUN 15 (7-17) mg/dL Creatinine 1.0 (0.7-1.2) MG/DL Est GFR ( Amer) > 60 Est GFR (Non-Af Amer) 56 POC Glucose (mg/dL) (65-110) mg/dL Random Glucose 163 H (65-105) mg/dL Calcium 7.9 L (8.6-10.4) mg/dl Phosphorus 4.0 (2.5-4.5) mg/dL Magnesium 1.7 (1.6-2.3) mg/dL Total Bilirubin 0.5 (0.2-1.3) mg/dL AST 31 (14-36) U/L ALT 24 (9-52) U/L Alkaline Phosphatase 83 (38-126) U/L Troponin I < 0.0120 (0.00-0.120) ng/mL Total Protein 7.3 (6.3-8.3) g/dL Albumin 3.5 (3.5-5.0) g/dL Globulin 3.8 (2.2-3.9) gm/dL Albumin/Globulin Ratio 0.9 L (1.0-2.1) Procalcitonin 0.07 L (0.19-0.49) NG/ML Urine Color (YELLOW) Urine Clarity (Clear) Urine pH (5.0-8.0) Ur Specific [place] (1.003-1.030) Urine Protein (NEGATIVE) mg/dL Urine Glucose (UA) (Normal) mg/dL Urine Ketones (NEGATIVE) mg/dL Urine Blood (NEGATIVE) Urine Nitrate (NEGATIVE) Urine Bilirubin (NEGATIVE) Urine Urobilinogen (0.2-1.0) mg/dL Ur Leukocyte Esterase (Negative) Shalini/uL Urine WBC (Auto) (0-5) /hpf Urine RBC (Auto) (0-3) /hpf Urine Bacteria (<OCC) 08/22/16 Range/Units 23:06 WBC (4.8-10.8) K/uL RBC (3.80-5.20) Mil/uL Hgb (11.0-16.0) g/dL Hct (34.0-47.0) % MCV (81.0-99.0) fL MCH (27.0-31.0) pg MCHC (33.0-37.0) g/dL RDW (11.5-14.5) % Plt Count (130-400) K/uL MPV (7.2-11.7) fL Neut % (Auto) (50.0-75.0) % Lymph % (Auto) (20.0-40.0) % [place] % (Auto) (0.0-10.0) % Eos % (Auto) (0.0-4.0) % Baso % (Auto) (0.0-2.0) % Neut # (1.8-7.0) K/uL Lymph # (1.0-4.3) K/uL [place] # (0.0-0.8) K/uL Eos # (0.0-0.7) K/uL Baso # (0.0-0.2) K/uL Puncture Site pCO2 (35-45) mm/Hg pO2 (80-100) mm/Hg HCO3 (21-28) mmol/L ABG pH (7.35-7.45) ABG Total CO2 (22-28) mmol/L ABG O2 Saturation (95-98) % ABG Base Excess (-2.0-3.0) mmol/L ABG Hemoglobin (11.7-17.4) g/dL ABG Carboxyhemoglobin (0.5-1.5) % POC ABG HHb (Measured) (0.0-5.0) % ABG Methemoglobin (0.0-3.0) % Misael Test A-a O2 Difference mm/Hg Respiratory Index Hgb O2 Saturation (95.0-98.0) % FiO2 % Inspiratory BiPAP Expiratory BiPAP Sodium (132-148) mmol/L Potassium (3.6-5.2) mmol/L Chloride (98-107) mmol/L Carbon Dioxide (22-30) mmol/L Anion Gap (10-20) BUN (7-17) mg/dL Creatinine (0.7-1.2) MG/DL Est GFR ( Amer) Est GFR (Non-Af Amer) POC Glucose (mg/dL) (65-110) mg/dL Random Glucose (65-105) mg/dL Calcium (8.6-10.4) mg/dl Phosphorus (2.5-4.5) mg/dL Magnesium (1.6-2.3) mg/dL Total Bilirubin (0.2-1.3) mg/dL AST (14-36) U/L ALT (9-52) U/L Alkaline Phosphatase (38-126) U/L Troponin I (0.00-0.120) ng/mL Total Protein (6.3-8.3) g/dL Albumin (3.5-5.0) g/dL Globulin (2.2-3.9) gm/dL Albumin/Globulin Ratio (1.0-2.1) Procalcitonin (0.19-0.49) NG/ML Urine Color Yellow (YELLOW) Urine Clarity Clear (Clear) Urine pH 5.0 (5.0-8.0) Ur Specific [place] 1.032 H (1.003-1.030) Urine Protein Negative (NEGATIVE) mg/dL Urine Glucose (UA) Normal (Normal) mg/dL Urine Ketones Negative (NEGATIVE) mg/dL Urine Blood 1+ H (NEGATIVE) Urine Nitrate Positive H (NEGATIVE) Urine Bilirubin Negative (NEGATIVE) Urine Urobilinogen Normal (0.2-1.0) mg/dL Ur Leukocyte Esterase 1+ H (Negative) Shalini/uL Urine WBC (Auto) 14 H (0-5) /hpf Urine RBC (Auto) 5 H (0-3) /hpf Urine Bacteria Few H (<OCC) Laboratory Results - last 24 hr 08/22/16 08/23/16 08/23/16 23:06 06:24 06:24 WBC RBC Hgb Hct MCV MCH MCHC RDW Plt Count MPV Neut % (Auto) Lymph % (Auto) [place] % (Auto) Eos % (Auto) Baso % (Auto) Neut # Lymph # [place] # Eos # Baso # Puncture Site pCO2 pO2 HCO3 ABG pH ABG Total CO2 ABG O2 Saturation ABG Base Excess ABG Hemoglobin ABG Carboxyhemoglobin POC ABG HHb (Measured) ABG Methemoglobin Misael Test A-a O2 Difference Respiratory Index Hgb O2 Saturation FiO2 Inspiratory BiPAP Expiratory BiPAP Sodium 137 Potassium 4.5 Chloride 104 Carbon Dioxide 24 Anion Gap 15 BUN 15 Creatinine 1.0 Est GFR ( Amer) > 60 Est GFR (Non-Af Amer) 56 POC Glucose (mg/dL) Random Glucose 163 H Calcium 7.9 L Phosphorus 4.0 Magnesium 1.7 Total Bilirubin 0.5 AST 31 ALT 24 Alkaline Phosphatase 83 Troponin I < 0.0120 Total Protein 7.3 Albumin 3.5 Globulin 3.8 Albumin/Globulin Ratio 0.9 L Procalcitonin 0.07 L Urine Color Yellow Urine Clarity Clear Urine pH 5.0 Ur Specific [place] 1.032 H Urine Protein Negative Urine Glucose (UA) Normal Urine Ketones Negative Urine Blood 1+ H Urine Nitrate Positive H Urine Bilirubin Negative Urine Urobilinogen Normal Ur Leukocyte Esterase 1+ H Urine WBC (Auto) 14 H Urine RBC (Auto) 5 H Urine Bacteria Few H 08/23/16 08/23/16 08/23/16 06:26 07:23 10:42 WBC 9.1 RBC 3.88 Hgb 11.6 Hct 36.7 MCV 94.6 MCH 29.8 MCHC 31.5 L RDW 16.6 H Plt Count 207 MPV 7.7 Neut % (Auto) 88.1 H Lymph % (Auto) 10.1 L [place] % (Auto) 1.6 Eos % (Auto) 0.1 Baso % (Auto) 0.1 Neut # 8.0 H Lymph # 0.9 L [place] # 0.1 Eos # 0.0 Baso # 0.0 Puncture Site Rra pCO2 60 H pO2 88 HCO3 26.5 ABG pH 7.30 L ABG Total CO2 31.3 H ABG O2 Saturation 98.2 H ABG Base Excess 2.0 ABG Hemoglobin 10.8 L ABG Carboxyhemoglobin 1.9 H POC ABG HHb (Measured) 1.7 ABG Methemoglobin 1.0 Misael Test Po A-a O2 Difference 122.0 Respiratory Index 1.4 Hgb O2 Saturation 95.4 FiO2 40.0 Inspiratory BiPAP 12 Expiratory BiPAP 6 Sodium Potassium Chloride Carbon Dioxide Anion Gap BUN Creatinine Est GFR ( Amer) Est GFR (Non-Af Amer) POC Glucose (mg/dL) 175 H Random Glucose Calcium Phosphorus Magnesium Total Bilirubin AST ALT Alkaline Phosphatase Troponin I Total Protein Albumin Globulin Albumin/Globulin Ratio Procalcitonin Urine Color Urine Clarity Urine pH Ur Specific [place] Urine Protein Urine Glucose (UA) Urine Ketones Urine Blood Urine Nitrate Urine Bilirubin Urine Urobilinogen Ur Leukocyte Esterase Urine WBC (Auto) Urine RBC (Auto) Urine Bacteria 08/23/16 11:58 WBC RBC Hgb Hct MCV MCH MCHC RDW Plt Count MPV Neut % (Auto) Lymph % (Auto) [place] % (Auto) Eos % (Auto) Baso % (Auto) Neut # Lymph # [place] # Eos # Baso # Puncture Site pCO2 pO2 HCO3 ABG pH ABG Total CO2 ABG O2 Saturation ABG Base Excess ABG Hemoglobin ABG Carboxyhemoglobin POC ABG HHb (Measured) ABG Methemoglobin Misael Test A-a O2 Difference Respiratory Index Hgb O2 Saturation FiO2 Inspiratory BiPAP Expiratory BiPAP Sodium Potassium Chloride Carbon Dioxide Anion Gap BUN Creatinine Est GFR ( Amer) Est GFR (Non-Af Amer) POC Glucose (mg/dL) 151 H Random Glucose Calcium Phosphorus Magnesium Total Bilirubin AST ALT Alkaline Phosphatase Troponin I Total Protein Albumin Globulin Albumin/Globulin Ratio Procalcitonin Urine Color Urine Clarity Urine pH Ur Specific [place] Urine Protein Urine Glucose (UA) Urine Ketones Urine Blood Urine Nitrate Urine Bilirubin Urine Urobilinogen Ur Leukocyte Esterase Urine WBC (Auto) Urine RBC (Auto) Urine Bacteria Fingerstick Blood Sugar Results: 151 Critical Care Progress Note - Nutrition Nutrition: Nutrition Category Date Time Status Consistent Carbohydrate [DIET] Diets 08/23/16 Lunch Active Assessment/Plan (1) COPD (chronic obstructive pulmonary disease) Current Visit: No Status: Chronic Comment: ABG consistent with hypercapnic respiratory failure Patient was initially placed on BiPAP but is much more awake and responsive CAT scan of the chest consistent with filling defect Venous Doppler of the legs negative for DVT Continue Lovenox for now Follow-up ABG Nebulizer treatment (2) Pulmonary embolism Current Visit: Yes Status: Acute (3) History of lung cancer Current Visit: No Status: Chronic
[2016-08-23] MEDS: (Novolin R) Insulin Human Regular 100 units/ml vial SC SCH ×3 (14:55→21:34)
[2016-08-23] MEDS ORDERED: Enoxaparin 100 mg Syringe SC SCH (15:00)
[2016-08-23] MEDS ORDERED: Sodium Chloride 0.9% 1,000 ML IV ONE (17:49)
[2016-08-23] MEDS ORDERED: Sodium Chloride 0.9% 500 ML IV ONE (18:20)
[2016-08-23] MEDS: Enoxaparin 100 mg Syringe SC SCH (21:38)
[2016-08-24] MEDS: (Novolin R) Insulin Human Regular 100 units/ml vial SC SCH ×4 (07:48→22:24)
--- NOTE | 2016-08-24 08:21 | CP.PCM.PN ---
Subjective - Date & Time of Evaluation Date of Evaluation: 08/24/16 Time of Evaluation: 10:00 - Subjective Subjective: Dr. Pritchett progress note: Patient seen sitting up in room. Patient reports diffaculty breathing. She also complains of weakness and fatigue. Objective - Vital Signs/Intake and Output Vital Signs (last 24 hours): Temp Pulse Resp BP Pulse Ox 98 F 86 15 85/55 L 98 08/24/16 04:00 08/24/16 08:00 08/24/16 08:00 08/24/16 07:42 08/24/16 08:00 Intake and Output: 08/24/16 08/24/16 06:59 18:59 Intake Total 650 200 Output Total 320 40 Balance 330 160 - Medications Medications: Current Medications Enoxaparin Sodium (Lovenox) 90 mg 1 mg/kg (90 mg) SC Q12H [facility] Last Admin: 08/23/16 21:38 Dose: 90 mg Doxycycline Hyclate 100 mg/ (Sodium Chloride) 100 mls @ 100 mls/hr IVPB Q12H [facility] Last Admin: 08/23/16 23:02 Dose: 100 mls/hr Cefepime HCl 1 gm/ Dextrose 50 mls @ 100 mls/hr IVPB Q8H [facility] Last Admin: 08/24/16 06:50 Dose: 100 mls/hr Insulin Human Regular (Novolin R) 0 unit SC ACHS [facility] PRN Reason: Protocol Last Admin: 08/24/16 07:48 Dose: Not Given Pantoprazole Sodium (Protonix Ec Tab) 40 mg PO DAILY [facility] Last Admin: 08/23/16 09:54 Dose: 40 mg - Labs Labs: 08/23/16 06:26 08/23/16 06:24 APTT 31 SECONDS (21-34) 08/22/16 18:04 - Constitutional Appears: Non-toxic, No Acute Distress - Head Exam Head Exam: NORMAL INSPECTION - Eye Exam Eye Exam: Normal appearance - ENT Exam ENT Exam: Normal Exam - Respiratory Exam Respiratory Exam: Decreased Breath Sounds, Rales, Rhonchi, Wheezes. absent: Clear to Ausculation Bilateral - Cardiovascular Exam Cardiovascular Exam: REGULAR RHYTHM, RRR, +S1, +S2. absent: Gallop, Rubs - GI/Abdominal Exam GI & Abdominal Exam: Soft, Normal Bowel Sounds. absent: Tenderness - Extremities Exam Extremities Exam: Normal Inspection. absent: Pedal Edema - Psychiatric Exam Psychiatric exam: Normal Affect, Normal Mood - Skin Skin Exam: Normal Color, Warm Assessment and Plan - Assessment and Plan (Free Text) Assessment: SOB 08/24: Breathing is better, IV antibiotics for now and also nasal canula or BIPAP for support, on theraputic Lovenox for probably PE see emr for CT scan results. 08/23: Patient admitted to ICU, on IV antibiotics and also on BIPAP as needed, she is also on theraputic Lovenox for probably PE as well. Pending official results of lower extremity doppler. Admit to ICU shelter smoking hx, COPD Troponin negative x 1 ABG: CO2 retention, bicarb elevated, pH WNL CXR (08/22/16): Patchy infiltrates on right side lower lobe (wet read, f/u official report) Ct Chest (08/22/16): Evaluation of pulmonary arteries limited, multiple questionable areas of filling defect in branches on right. Recommend follow up. Partial prior pneumonectomy on left. Extensive LLL atelectasis. RLL atelectasis as well. Thickening of interlobular septa and ground glass opacity involving lung rodriguez, right greater than left. No lung mass. Small pericardial effusion. Marked shift of heart and secondary to prior pneumonectomy. (see full report) BIPAP O2 Duonebs ONCE in ED Solumedrol 125mg IV ONCE in ED Possible HAP Pt resident at [place], d/c one month ago CXR (08/22/16): Patchy infiltrates on right side lower lobe (wet read, f/u official report) Start Cefepime 1gm IVPB Q8H Start Doxycycline 100mg IVPB Q12H Azithromycin 500mg IV given once in ED Ceftiaxone 1gm IV once in ED Possible PE Ct Chest (08/22/16): Evaluation of pulmonary arteries limited, multiple questionable areas of filling defect in branches on right. Recommend follow up. (see full report) Lovenox 80mg SC Q12H f/u Bilateral Venous dopplers f/u AM BUN/Cr to eval renal function (i.e. VQ scan vs. repeat CTA) AMS Baseline AAOx3 according to daughter CT Head (08/22/16): negative Monitor Hx of Urinary retention Quinones catheter placed in ED DM - Hold Home Januvia 100mg PO daily - HBA1c: 6.5 - Insulin sliding scale - medium - Accuchecks Hx of Hypertension - hypotensive since admission - NS 1 L x 2 given in ED - Monitor BP Hx of Lung CA - Xray shows LLL consolidation - Continue Oxycodone 10mg PO q6hrs prn pain, moderate - Colace 100mg PO BID - Consulted Palliative Care for goals of care, help appreciated Abnormal UA 08/24: urine culture is back as E. coli sensitive to Cefepime. UA (08/22/16): LE 1+, Nitrate positive, WBC 14, blood 1+ Hypokalemia 3.0 on initial lab work, repleted KCL 20 meq x 2 IVPB Hx of Anemia H/H 11.1/34.7, stable In line with Baseline Monitor Prophylaxis Protonix 40 mg PO Daily Lovenox 80mg SC Q12H [facility]
[2016-08-24 08:46] LABS: ABG ALLEN TEST PO; ARTERIAL BLOOD HGB O2 SAT 95.8 % (95.0-98.0); CARBOXYHEMOGLOBIN 1.8 % (0.5-1.5); DRAW SITE RRA; HHB 1.5 % (0.0-5.0); METHEMOGLOBIN 0.8 % (0.0-3.0)
[2016-08-24 08:55] LABS: BASO # 0.1 K/uL (0.0-0.2); BASO % 0.9 % (0.0-2.0); EOS # 0.1 K/uL (0.0-0.7); EOS % 1.4 % (0.0-4.0); HEMATOCRIT 30.9 % (34.0-47.0); LYMPH # 0.7 K/uL (1.0-4.3); LYMPH % 11.8 % (20.0-40.0); MEAN CELL VOLUME 93.9 fL (81.0-99.0); MEAN CORPUSCULAR HEMOGLOBIN 29.9 pg (27.0-31.0); MEAN CORPUSCULAR HGB CONC 31.9 g/dL (33.0-37.0); MEAN PLATELET VOLUME 7.9 fL (7.2-11.7); MONO # 0.6 K/uL (0.0-0.8); MONO % 9.8 % (0.0-10.0); RED CELL DISTRIBUTION WIDTH 16.9 % (11.5-14.5); WHITE BLOOD COUNT 5.9 K/uL (4.8-10.8)
[2016-08-24 09:06] LABS: CHLORIDE 105 mmol/L (98-107); POTASSIUM 3.3 mmol/L (3.6-5.2); SODIUM 142 mmol/L (132-148)
[2016-08-24 09:08] LABS: ALKALINE PHOSPHATASE 66 U/L (38-126); AST/SGOT 19 U/L (14-36); BILIRUBIN,TOTAL 0.5 mg/dL (0.2-1.3); BLOOD UREA NITROGEN 18 mg/dL (7-17); CARBON DIOXIDE 27 mmol/L (22-30); GFR AFRICAN-AMERICAN > 60; TOTAL PROTEIN 6.6 g/dL (6.3-8.3)
[2016-08-24 09:09] LABS: ALT/SGPT 21 U/L (9-52); GLUCOSE,RANDOM 85 mg/dL (65-105); MAGNESIUM 1.6 mg/dL (1.6-2.3); PHOSPHOROUS 2.5 mg/dL (2.5-4.5)
[2016-08-24] MEDS ORDERED: Potassium Chloride 20 mEq ER Tab PO STA (09:36)
[2016-08-24] MEDS: Pantoprazole 40 mg EC Tab PO SCH (09:58)
[2016-08-24] MEDS: Enoxaparin 100 mg Syringe SC SCH ×2 (09:58→22:22)
[2016-08-24] MEDS ORDERED: Enoxaparin 40 mg Syringe SC SCH (10:00)
--- NOTE | 2016-08-24 11:17 | CP.CCUPN ---
CCU Subjective - Physician Review Events Since Last Encounter (Free Text): 08/24/16 11:14 Patient seen and examined in the intensive care unit. Much more awake and responsive Improved pco2 in ABG noted Good urine output, normotensive now CCU Objective - Vital Signs / Intake & Output Vital Signs (Last 4 hours): Vital Signs Temp Pulse Resp BP Pulse Ox 08/24/16 09:00 89 15 100 08/24/16 08:42 89 18 94/58 L 99 08/24/16 08:00 98 F 86 15 98 08/24/16 07:42 83 11 L 85/55 L 95 Intake and Output (Last 8hrs): Intake & Output 08/23/16 08/24/16 08/24/16 22:59 06:59 14:59 Intake Total 1275 400 300 Output Total 325 240 90 Balance 950 160 210 Weight 210 lb 8 oz Intake: Intake, IV Amount 875 150 Right Distal Port 875 150 Antecubital Oral 400 250 300 Output: Urine 325 240 90 Urethral (Quinones) 325 240 90 Other: # Bowel Movements 0 0 - Physical Exam Head: Positive for: Atraumatic, Normocephalic Mouth: Positive for: Moist Mucous Membranes Neck: Positive for: Normal Range of Motion Respiratory/Chest: Positive for: Decreased Breath Sounds Cardiovascular: Positive for: Regular Rate and Rhythm Abdomen: Positive for: Normal Bowel Sounds Upper Extremity: Positive for: Normal Inspection Lower Extremity: Positive for: Edema Psychiatric: Positive for: Alert, Oriented x 3 - Medications Active Medications: Active Medications Generic Name Dose Route Start Last Admin Trade Name Freq PRN Reason Stop Dose Admin Enoxaparin Sodium 90 mg 08/23/16 22:00 08/24/16 09:58 Lovenox 1 mg/kg (90 mg) 90 mg SC Administration Q12H RICKY Doxycycline Hyclate 100 mg/ 100 mls @ 100 mls/hr 08/22/16 23:45 08/23/16 23: 02 Sodium Chloride IVPB 100 mls/hr Q12H RICKY Administration Cefepime HCl 1 gm/ Dextrose 50 mls @ 100 mls/hr 08/22/16 23:45 08/24/16 06:50 IVPB 100 mls/hr Q8H RICKY Administration Insulin Human Regular 0 unit 08/23/16 07:30 08/24/16 07:48 Novolin R SC Not Given ACHS RICKY Protocol Pantoprazole Sodium 40 mg 08/23/16 10:00 08/24/16 09:58 Protonix Ec Tab PO 40 mg DAILY RICKY Administration - Patient Studies Lab Studies: Microbiology Studies 08/22/16 22:56 Urine Culture - Preliminary Urine,Catheterized Gram Negative Jacek Lab Studies 08/24/16 08/24/16 08/24/16 Range/Units 08:50 08:50 08:43 WBC 5.9 (4.8-10.8) K/uL RBC 3.29 L (3.80-5.20) Mil/uL Hgb 9.9 L (11.0-16.0) g/dL Hct 30.9 L (34.0-47.0) % MCV 93.9 (81.0-99.0) fL MCH 29.9 (27.0-31.0) pg MCHC 31.9 L (33.0-37.0) g/dL RDW 16.9 H (11.5-14.5) % Plt Count 193 (130-400) K/uL MPV 7.9 (7.2-11.7) fL Neut % (Auto) 76.1 H (50.0-75.0) % Lymph % (Auto) 11.8 L (20.0-40.0) % [place] % (Auto) 9.8 (0.0-10.0) % Eos % (Auto) 1.4 (0.0-4.0) % Baso % (Auto) 0.9 (0.0-2.0) % Neut # 4.5 (1.8-7.0) K/uL Lymph # 0.7 L (1.0-4.3) K/uL [place] # 0.6 (0.0-0.8) K/uL Eos # 0.1 (0.0-0.7) K/uL Baso # 0.1 (0.0-0.2) K/uL Puncture Site Rra pCO2 52 H (35-45) mm/Hg pO2 83 (80-100) mm/Hg HCO3 28.0 (21-28) mmol/L ABG pH 7.37 (7.35-7.45) ABG Total CO2 31.7 H (22-28) mmol/L ABG O2 Saturation 98.5 H (95-98) % ABG Base Excess 4.0 H (-2.0-3.0) mmol/L ABG Hemoglobin 9.7 L (11.7-17.4) g/dL ABG Carboxyhemoglobin 1.8 H (0.5-1.5) % POC ABG HHb (Measured) 1.5 (0.0-5.0) % ABG Methemoglobin 0.8 (0.0-3.0) % Misael Test Po A-a O2 Difference 80.0 mm/Hg Respiratory Index 1.0 Hgb O2 Saturation 95.8 (95.0-98.0) % Liter Flow 3.0 FiO2 32.0 % Sodium 142 (132-148) mmol/L Potassium 3.3 L (3.6-5.2) mmol/L Chloride 105 (98-107) mmol/L Carbon Dioxide 27 (22-30) mmol/L Anion Gap 13 (10-20) BUN 18 H (7-17) mg/dL Creatinine 1.0 (0.7-1.2) MG/DL Est GFR ( Amer) > 60 Est GFR (Non-Af Amer) 56 POC Glucose (mg/dL) (65-110) mg/dL Random Glucose 85 (65-105) mg/dL Calcium 8.0 L (8.6-10.4) mg/dl Phosphorus 2.5 (2.5-4.5) mg/dL Magnesium 1.6 (1.6-2.3) mg/dL Total Bilirubin 0.5 (0.2-1.3) mg/dL AST 19 (14-36) U/L ALT 21 (9-52) U/L Alkaline Phosphatase 66 (38-126) U/L Total Protein 6.6 (6.3-8.3) g/dL Albumin 3.4 L (3.5-5.0) g/dL Globulin 3.3 (2.2-3.9) gm/dL Albumin/Globulin Ratio 1.0 (1.0-2.1) 08/24/16 08/23/16 08/23/16 Range/Units 07:40 21:33 16:11 WBC (4.8-10.8) K/uL RBC (3.80-5.20) Mil/uL Hgb (11.0-16.0) g/dL Hct (34.0-47.0) % MCV (81.0-99.0) fL MCH (27.0-31.0) pg MCHC (33.0-37.0) g/dL RDW (11.5-14.5) % Plt Count (130-400) K/uL MPV (7.2-11.7) fL Neut % (Auto) (50.0-75.0) % Lymph % (Auto) (20.0-40.0) % [place] % (Auto) (0.0-10.0) % Eos % (Auto) (0.0-4.0) % Baso % (Auto) (0.0-2.0) % Neut # (1.8-7.0) K/uL Lymph # (1.0-4.3) K/uL [place] # (0.0-0.8) K/uL Eos # (0.0-0.7) K/uL Baso # (0.0-0.2) K/uL Puncture Site pCO2 (35-45) mm/Hg pO2 (80-100) mm/Hg HCO3 (21-28) mmol/L ABG pH (7.35-7.45) ABG Total CO2 (22-28) mmol/L ABG O2 Saturation (95-98) % ABG Base Excess (-2.0-3.0) mmol/L ABG Hemoglobin (11.7-17.4) g/dL ABG Carboxyhemoglobin (0.5-1.5) % POC ABG HHb (Measured) (0.0-5.0) % ABG Methemoglobin (0.0-3.0) % Misael Test A-a O2 Difference mm/Hg Respiratory Index Hgb O2 Saturation (95.0-98.0) % Liter Flow FiO2 % Sodium (132-148) mmol/L Potassium (3.6-5.2) mmol/L Chloride (98-107) mmol/L Carbon Dioxide (22-30) mmol/L Anion Gap (10-20) BUN (7-17) mg/dL Creatinine (0.7-1.2) MG/DL Est GFR ( Amer) Est GFR (Non-Af Amer) POC Glucose (mg/dL) 114 H 154 H 203 H (65-110) mg/dL Random Glucose (65-105) mg/dL Calcium (8.6-10.4) mg/dl Phosphorus (2.5-4.5) mg/dL Magnesium (1.6-2.3) mg/dL Total Bilirubin (0.2-1.3) mg/dL AST (14-36) U/L ALT (9-52) U/L Alkaline Phosphatase (38-126) U/L Total Protein (6.3-8.3) g/dL Albumin (3.5-5.0) g/dL Globulin (2.2-3.9) gm/dL Albumin/Globulin Ratio (1.0-2.1) 08/23/16 Range/Units 11:58 WBC (4.8-10.8) K/uL RBC (3.80-5.20) Mil/uL Hgb (11.0-16.0) g/dL Hct (34.0-47.0) % MCV (81.0-99.0) fL MCH (27.0-31.0) pg MCHC (33.0-37.0) g/dL RDW (11.5-14.5) % Plt Count (130-400) K/uL MPV (7.2-11.7) fL Neut % (Auto) (50.0-75.0) % Lymph % (Auto) (20.0-40.0) % [place] % (Auto) (0.0-10.0) % Eos % (Auto) (0.0-4.0) % Baso % (Auto) (0.0-2.0) % Neut # (1.8-7.0) K/uL Lymph # (1.0-4.3) K/uL [place] # (0.0-0.8) K/uL Eos # (0.0-0.7) K/uL Baso # (0.0-0.2) K/uL Puncture Site pCO2 (35-45) mm/Hg pO2 (80-100) mm/Hg HCO3 (21-28) mmol/L ABG pH (7.35-7.45) ABG Total CO2 (22-28) mmol/L ABG O2 Saturation (95-98) % ABG Base Excess (-2.0-3.0) mmol/L ABG Hemoglobin (11.7-17.4) g/dL ABG Carboxyhemoglobin (0.5-1.5) % POC ABG HHb (Measured) (0.0-5.0) % ABG Methemoglobin (0.0-3.0) % Misael Test A-a O2 Difference mm/Hg Respiratory Index Hgb O2 Saturation (95.0-98.0) % Liter Flow FiO2 % Sodium (132-148) mmol/L Potassium (3.6-5.2) mmol/L Chloride (98-107) mmol/L Carbon Dioxide (22-30) mmol/L Anion Gap (10-20) BUN (7-17) mg/dL Creatinine (0.7-1.2) MG/DL Est GFR ( Amer) Est GFR (Non-Af Amer) POC Glucose (mg/dL) 151 H (65-110) mg/dL Random Glucose (65-105) mg/dL Calcium (8.6-10.4) mg/dl Phosphorus (2.5-4.5) mg/dL Magnesium (1.6-2.3) mg/dL Total Bilirubin (0.2-1.3) mg/dL AST (14-36) U/L ALT (9-52) U/L Alkaline Phosphatase (38-126) U/L Total Protein (6.3-8.3) g/dL Albumin (3.5-5.0) g/dL Globulin (2.2-3.9) gm/dL Albumin/Globulin Ratio (1.0-2.1) Laboratory Results - last 24 hr 08/23/16 08/23/16 08/23/16 11:58 16:11 21:33 WBC RBC Hgb Hct MCV MCH MCHC RDW Plt Count MPV Neut % (Auto) Lymph % (Auto) [place] % (Auto) Eos % (Auto) Baso % (Auto) Neut # Lymph # [place] # Eos # Baso # Puncture Site pCO2 pO2 HCO3 ABG pH ABG Total CO2 ABG O2 Saturation ABG Base Excess ABG Hemoglobin ABG Carboxyhemoglobin POC ABG HHb (Measured) ABG Methemoglobin Misael Test A-a O2 Difference Respiratory Index Hgb O2 Saturation Liter Flow FiO2 Sodium Potassium Chloride Carbon Dioxide Anion Gap BUN Creatinine Est GFR ( Amer) Est GFR (Non-Af Amer) POC Glucose (mg/dL) 151 H 203 H 154 H Random Glucose Calcium Phosphorus Magnesium Total Bilirubin AST ALT Alkaline Phosphatase Total Protein Albumin Globulin Albumin/Globulin Ratio 08/24/16 08/24/16 08/24/16 07:40 08:43 08:50 WBC 5.9 RBC 3.29 L Hgb 9.9 L Hct 30.9 L MCV 93.9 MCH 29.9 MCHC 31.9 L RDW 16.9 H Plt Count 193 MPV 7.9 Neut % (Auto) 76.1 H Lymph % (Auto) 11.8 L [place] % (Auto) 9.8 Eos % (Auto) 1.4 Baso % (Auto) 0.9 Neut # 4.5 Lymph # 0.7 L [place] # 0.6 Eos # 0.1 Baso # 0.1 Puncture Site Rra pCO2 52 H pO2 83 HCO3 28.0 ABG pH 7.37 ABG Total CO2 31.7 H ABG O2 Saturation 98.5 H ABG Base Excess 4.0 H ABG Hemoglobin 9.7 L ABG Carboxyhemoglobin 1.8 H POC ABG HHb (Measured) 1.5 ABG Methemoglobin 0.8 Misael Test Po A-a O2 Difference 80.0 Respiratory Index 1.0 Hgb O2 Saturation 95.8 Liter Flow 3.0 FiO2 32.0 Sodium Potassium Chloride Carbon Dioxide Anion Gap BUN Creatinine Est GFR ( Amer) Est GFR (Non-Af Amer) POC Glucose (mg/dL) 114 H Random Glucose Calcium Phosphorus Magnesium Total Bilirubin AST ALT Alkaline Phosphatase Total Protein Albumin Globulin Albumin/Globulin Ratio 08/24/16 08:50 WBC RBC Hgb Hct MCV MCH MCHC RDW Plt Count MPV Neut % (Auto) Lymph % (Auto) [place] % (Auto) Eos % (Auto) Baso % (Auto) Neut # Lymph # [place] # Eos # Baso # Puncture Site pCO2 pO2 HCO3 ABG pH ABG Total CO2 ABG O2 Saturation ABG Base Excess ABG Hemoglobin ABG Carboxyhemoglobin POC ABG HHb (Measured) ABG Methemoglobin Misael Test A-a O2 Difference Respiratory Index Hgb O2 Saturation Liter Flow FiO2 Sodium 142 Potassium 3.3 L Chloride 105 Carbon Dioxide 27 Anion Gap 13 BUN 18 H Creatinine 1.0 Est GFR ( Amer) > 60 Est GFR (Non-Af Amer) 56 POC Glucose (mg/dL) Random Glucose 85 Calcium 8.0 L Phosphorus 2.5 Magnesium 1.6 Total Bilirubin 0.5 AST 19 ALT 21 Alkaline Phosphatase 66 Total Protein 6.6 Albumin 3.4 L Globulin 3.3 Albumin/Globulin Ratio 1.0 Fingerstick Blood Sugar Results: 114 Critical Care Progress Note - Nutrition Nutrition: Nutrition Category Date Time Status Consistent Carbohydrate [DIET] Diets 08/23/16 Lunch Active Assessment/Plan (1) COPD (chronic obstructive pulmonary disease) Current Visit: No Status: Chronic Comment: Patient is much more awake and responsive with improving PCO2 in the ABG Normotensive now Continue to use BiPAP at night CAT scan of the chest consistent with filling defect Venous Doppler of the legs negative for DVT Continue Lovenox for now Follow-up ABG Nebulizer treatment (2) Pulmonary embolism Current Visit: Yes Status: Acute (3) History of lung cancer Current Visit: No Status: Chronic
[2016-08-25] MEDS: (Novolin R) Insulin Human Regular 100 units/ml vial SC SCH ×4 (08:30→21:58)
[2016-08-25] MEDS ORDERED: Magnesium Sulfate 1 gm in D5W 1 GM/100 ML BAG IVPB ONE (09:00)
[2016-08-25] MEDS: Enoxaparin 100 mg Syringe SC SCH ×2 (09:00→22:50)
[2016-08-25] MEDS: Pantoprazole 40 mg EC Tab PO SCH (09:01)
--- NOTE | 2016-08-25 09:21 | VASCLAB ---
PROCEDURE: Lower Extremity Venous Duplex Exam. HISTORY: leg edema PRIORS: None. TECHNIQUE: Bilateral common femoral, femoral, popliteal and posterior tibial, peroneal and great saphenous veins were evaluated. Flow was assessed with color Doppler, compressibility, assessment of phasic flow and augmentation response. Report prepared by ORVILLE Chakraborty, RVT FINDINGS: RIGHT: 1. Common Femoral Vein: 1.1. Compressibility - Fully compressible: Thrombus - None : Flow - Phasic: Augmentation -Normal: Reflux - None. 2. Femoral Vein: 2.1. Compressibility - Fully compressible: Thrombus - None : Flow - Phasic: Augmentation -Normal: Reflux - None. 3. Popliteal Vein: 3.1. Compressibility - Fully compressible: Thrombus - None : Flow - Phasic: Augmentation -Normal: Reflux - None. 4. Posterior Tibial Vein: 4.1. Compressibility - Fully compressible: Thrombus - None: Flow - Phasic: Augmentation -Normal: Reflux - None. 5. Peroneal Vein: 5.1. Compressibility - Fully compressible: Thrombus - None: Flow - Phasic: Augmentation -Normal: Reflux - None. 6. Great Saphenous Vein: 6.1. Compressibility - Fully compressible: Thrombus - None: Flow - Phasic: Augmentation - Normal: Reflux - None. LEFT: 1. Common Femoral Vein: 1.1. Compressibility - Fully compressible: Thrombus - None: Flow - Phasic: Augmentation -Normal: Reflux - None. 2. Femoral Vein: 2.1. Compressibility - Fully compressible: Thrombus - None: Flow - Phasic: Augmentation -Normal: Reflux - None. 3. Popliteal Vein: 3.1. Compressibility - Fully compressible: Thrombus - None : Flow - Phasic: Augmentation -Normal: Reflux - None. 4. Posterior Tibial Vein: 4.1. Compressibility - Fully compressible: Thrombus - None: Flow - Phasic: Augmentation -Normal: Reflux - None. 5. Peroneal Vein: 5.1. Compressibility - Fully compressible: Thrombus - None: Flow - Phasic: Augmentation -Normal: Reflux - None. 6. Great Saphenous Vein: 6.1. Compressibility - Fully compressible: Thrombus - None: Flow - Phasic: Augmentation - Normal: Reflux - None. OTHER FINDINGS: Right: None significant. Left: None significant. IMPRESSION: Right: No evidence of deep or superficial vein thrombosis of the right lower extremity. Normal valve function noted of the right side. Left: No evidence of deep or superficial vein thrombosis of the left lower extremity. Normal valve function noted of the left side.
[2016-08-25] MEDS ORDERED: Potassium Chloride 20 mEq ER Tab PO SCH (10:00)
[2016-08-25] MEDS ORDERED: Albuterol-Ipratrop 3 mg / 0.5 (3 ml) UD INH PRN (10:09)
[2016-08-25] MEDS ORDERED: Acetylcysteine 20% Inhal Soln (4ml) INH SCH (10:15)
--- NOTE | 2016-08-25 13:15 | RAD ---
HISTORY: Shortness of breath. Portable study 10:20. COMPARISON: 04/24/2016. FINDINGS: LUNGS: Stable consolidative changes primarily affecting left lower lobe. PLEURA: BMD changes compared to the prior study CARDIOVASCULAR: Interval improvement and pulmonary vascular congestion. No radiographic findings to suggest acute or significant cardiovascular disease. Venous access catheter in stable, satisfactory position. OSSEOUS STRUCTURES: No significant abnormalities. VISUALIZED UPPER ABDOMEN: Normal. OTHER FINDINGS: None. IMPRESSION: Interval improvement right lower lobe infiltrate. Improving pulmonary vascular congestion. Stable extensive left lower lobe infiltrate.
[2016-08-25] MEDS ORDERED: Albuterol-Ipratrop 3 mg / 0.5 (3 ml) UD INH SCH (14:00)
--- NOTE | 2016-08-25 14:26 | CARD ---
APPROVED REPORT EKG Measurement Heart [id number] <Conclusion> Normal sinus rhythm Possible Left atrial enlargement Left axis deviation Low voltage QRS Inferior infarct, age undetermined Possible Anterolateral infarct, age undetermined Abnormal ECG
--- NOTE | 2016-08-25 15:04 | CP.CCUPN ---
CCU Subjective - Physician Review Subjective (Free Text): 08/25/16 15:19 Patient seen and examined at bedside. Patient in no acute distress. No acute events overnight. Nursing staff reports that the patient has been restless, climbing out of bed and removing her IV lines. The patient is presently on a 1- to-1 observation. The patient is altered this morning. When asked, the patient denies fever, chills, LE, chest pain, abdominal pain, SOB, N/V/D/C, changes in bowel/bladder, and paresthesias. Today on rounds, consults for pulm (Dr. Diaz) an dheme/onc (Dr. Roa) were placed. The patient was deemed medically stable for transfer to the telemetry floor. Critical Care Time Spent (in minutes): 90 CCU Objective - Vital Signs / Intake & Output Vital Signs (Last 4 hours): Vital Signs Temp Pulse Resp BP Pulse Ox 08/25/16 14:00 95 H 21 121/71 98 08/25/16 13:00 96 H 20 121/74 97 08/25/16 12:00 98.1 F 95 H 19 114/74 96 Intake and Output (Last 8hrs): Intake & Output 08/25/16 08/25/16 08/25/16 06:59 14:59 22:59 Intake Total 350 445 Output Total 215 30 Balance 135 415 Weight 95.481 kg Intake: Intake, IV Amount 150 250 Right Antecubital 250 Right Distal Port 150 Antecubital Oral 200 195 Output: Urine 215 30 Urethral (Corea) 215 30 - Physical Exam Physical Exam Limitations: Positive for: Altered Mental Status Head: Positive for: Atraumatic, Normocephalic Pupils: Positive for: PERRL Extroacular Muscles: Positive for: EOMI Conjunctiva: Positive for: Normal Mouth: Positive for: Moist Mucous Membranes. Negative for: Drooling Nose (External): Positive for: Atraumatic Neck: Positive for: Normal Range of Motion. Negative for: JVD, Lymphadenopathy Respiratory/Chest: Positive for: Clear to Auscultation, Good Air Exchange, Respiratory Distress, Decreased Breath Sounds (L). Negative for: Accessory Muscle Use, Retracting, Rhonchi Cardiovascular: Positive for: Regular Rate and Rhythm, Normal S1, S2, Peripheal Pulses Present. Negative for: Murmurs Abdomen: Positive for: Normal Bowel Sounds. Negative for: Tenderness, Distention, Peritoneal Signs, Rebound, Guarding Back: Positive for: Normal Inspection Upper Extremity: Positive for: Normal Inspection, Normal ROM, NORMAL PULSES. Negative for: Cyanosis, Edema Lower Extremity: Positive for: Normal Inspection, Edema (2+), Neurovascularly Intact. Negative for: CALF TENDERNESS, NORMAL PULSES Neurological: Positive for: CN II-XII Intact Skin: Positive for: Warm, Dry, Normal Color. Negative for: Rashes Psychiatric: Positive for: Alert - Medications Active Medications: Active Medications Generic Name Dose Route Start Last Admin Trade Name Freq PRN Reason Stop Dose Admin Acetylcysteine 4 ml 08/25/16 16:00 Acetylcysteine 20% INH RQ8 RICKY Albuterol/Ipratropium 3 ml 08/25/16 10:09 Duoneb 3 Mg/0.5 Mg (3 Ml) Ud INH RQ2 PRN Shortness of Breath Albuterol/Ipratropium 3 ml 08/25/16 16:00 Duoneb 3 Mg/0.5 Mg (3 Ml) Ud INH RQ8 RICKY Enoxaparin Sodium 90 mg 08/23/16 22:00 08/25/16 09:00 Lovenox 1 mg/kg (90 mg) 90 mg SC Administration Q12H RICKY Doxycycline Hyclate 100 mg/ 100 mls @ 100 mls/hr 08/22/16 23:45 08/25/16 11: 45 Sodium Chloride IVPB 100 mls/hr Q12H RICKY Administration Cefepime HCl 1 gm/ Dextrose 50 mls @ 100 mls/hr 08/22/16 23:45 08/25/16 08:30 IVPB 100 mls/hr Q8H RICKY Administration Insulin Human Regular 0 unit 08/23/16 07:30 08/25/16 12:00 Novolin R SC 2 unit ACHS RICKY Administration Protocol Pantoprazole Sodium 40 mg 08/23/16 10:00 08/25/16 09:01 Protonix Ec Tab PO 40 mg DAILY RICKY Administration Potassium Chloride 40 meq 08/25/16 10:00 08/25/16 09:01 K-Dur 20 Meq Er Tab PO 40 meq DAILY RICKY Administration - Patient Studies Lab Studies: Microbiology Studies 08/23/16 12:25 Blood Culture - Preliminary Blood NO GROWTH AFTER 48 HOURS 08/23/16 12:25 Blood Culture - Preliminary Blood NO GROWTH AFTER 48 HOURS 08/22/16 22:56 Urine Culture - Final Urine,Catheterized Escherichia Coli 08/22/16 23:45 MRSA Culture (Admit) - Final Nose MRSA NOT DETECTED Lab Studies 08/25/16 08/25/16 08/24/16 Range/Units 11:11 07:24 21:28 POC Glucose (mg/dL) 167 H 86 99 (65-110) mg/dL 08/24/16 Range/Units 17:02 POC Glucose (mg/dL) 94 (65-110) mg/dL Laboratory Results - last 24 hr 08/24/16 08/24/16 08/25/16 17:02 21:28 07:24 POC Glucose (mg/dL) 94 99 86 08/25/16 11:11 POC Glucose (mg/dL) 167 H EKG/Cardiology Studies: Cardiology / EKG Studies 08/25/16 02:00 ELECTROCARDIOGRAM Timed Comment: Mode Of Transportation: Reason For Exam: chest pain 08/25/16 08:00 EKG [ELECTROCARDIOGRAM] Timed Comment: Mode Of Transportation: Reason For Exam: chest pain Fingerstick Blood Sugar Results: 99 Review of Systems - Review of Systems Systems not reviewed;Unavailable: Altered Mental Status Critical Care Progress Note - Extremities/Vascular Does the Patient have a Central Venous Catheter?: No Does the Patient need a Central Venous Catheter?: No Does the Patient have a Corea Catheter?: No Does the Patient need a Corea Catheter?: No - Prophylaxis GI Prophylaxis GI: PPI - Prophylaxis DVT Prophylaxis DVT: Lovenox - Nutrition Nutrition: Nutrition Category Date Time Status Consistent Carbohydrate [DIET] Diets 08/23/16 Lunch Active Assessment/Plan (1) Small cell lung carcinoma Current Visit: Yes Status: Acute (2) S/P lobectomy of lung Current Visit: Yes Status: Acute (3) Altered mental status Current Visit: Yes Status: Acute (4) Acute exacerbation of chronic obstructive pulmonary disease (COPD) Current Visit: Yes Status: Resolved - Assessment and Plan (Free Text) Plan: Patient status: hemodynamically stable for transfer to telemetry floor Neuro: -AMS -no acute issues -Imaging: -08/22/16 CT head: No CT evidence of acute intracranial abnormality. Evidence of mild chronic ischemic small vessel changes. Cardiovascular: -HTN -hypotensive on admission - given 2L NS in ED -08/22/16 ECG: Normal sinus rhythm; LAD; chronic inferior and anterolateral infarct Pulmonary: -Resp acidosis- likely 2/2 to acute on chronic exacerbation of COPD- resolved -mild resp. acidosis 2/2 to chronic CO2 retention -08/23/16 ABG: respiratory acidosis -Pulm Consult- Dr. Diaz -hx of COPD -off bipap, tolerating well; saturating well -Duoneb 3ml INH RQ8 RICKY and Q2 PRN -Mucamyst q8 -solumedrol 125mg IV given once in ED -Possible PE -therapeutic Lovenox 80mg SC Q12h -08/22/16 Duplex scan LE artery: unremarkable -08/22/16 CT chest: Evaluation of the pulmonary arteries technically limited, multiple questionable areas of filling defect visualized in segmental branches on the right. Followup evaluation recommended. Evidence of prior partial left pneumonectomy. Extensive left lower lobe atelectasis. Right lower lobe atelectasis. Thickening of interlobular septa and ground glass opacity involving lung rodriguez, right greater than left. No lung mass visualized. Small pericardial effusion. Marked shift of the heart and secondary to prior pneumonectomy as well as atelectasis. -possible pneumonia -Doxycycline 100mg IVPB Q12h -Azithromycin 500mg IV given once in ED -Ceftriaxone 1gm IV once in ED -hx of lung ca with lobectomy -oxycodone 10mg PO q6h prn for pain -colace 100mg PO bid -palliative care consult -Imaging: -08/25/16 CXR: Interval improvement right lower lobe infiltrate. Improving pulmonary vascular congestion. Stable extensive left lower lobe infiltrate. -08/22/16 CXR: Venous congestion. Prominent consolidative opacity seen within the right hilar and infrahilar regions as well as within the left mid to lower lung. Suggestion of a loculated small to moderate left pleural effusion. Bilateral hilar prominence. Tubing projects over the upper meir thoraces, possibly external. Port device projecting over the right meir thorax. Gastrointestinal: -no acute issues Hematology: -Normocytic anemia -Stable Endocrine: -hx of DM -sliding scale insulin regular SC ACHS Renal: -Hypokalemia - repleted with potassium chloride 40meq PO daily -Hypomagnesemia- repleted with 1g IV Musculoskeletal: -hx of cervical disc herniation with surgery this year -PT/OT Genitourinary: -hx of urinary retention -corea catheter -UTI -08/22/16 urine culture: E.Coli sensitive to Cefepime -Cefepime 1gm IVPB Q8h -08/22/16 UA: 1+ leukocyte esterase; positive for nitrates; 12 urine WBC; few urine bacteria Infectious disease: -blood cultures negative -no acute issues -Doxycycline 100mg q12 IV- day 3 -Cefepime 1g q8 IV- day 3 -08/22/16 Urine Cx- (+) for e.coli -08/23/16 Blood Cx- negative -08/22/16 Nares- MRSA negative Psychiatric: -hx of depression GI prophylaxis: Protonix 40mg PO daily DVT prophylaxis: Lovenox 90mg SC Q12h Case discussed with Dr. Peter Ndiaye PGY1 - Date & Time Date: 08/25/16 Time: 15:24
[2016-08-25] MEDS: Albuterol-Ipratrop 3 mg / 0.5 (3 ml) UD INH SCH ×2 (15:57→23:50)
[2016-08-25] MEDS: Acetylcysteine 20% Inhal Soln (4ml) INH SCH ×2 (15:57→23:49)
--- NOTE | 2016-08-25 16:10 | CP.PCM.PN ---
Subjective - Date & Time of Evaluation Date of Evaluation: 08/25/16 Time of Evaluation: 09:30 - Subjective Subjective: Patient seen and examined in the intensive care unit. Patient alert and oriented 3 Confused during the night Using BiPAP at night Normotensive Afebrile Objective - Vital Signs/Intake and Output Vital Signs (last 24 hours): Temp Pulse Resp BP Pulse Ox 98.1 F 96 H 19 116/69 99 08/25/16 12:00 08/25/16 15:00 08/25/16 15:00 08/25/16 15:00 08/25/16 15:00 Intake and Output: 08/25/16 08/25/16 06:59 18:59 Intake Total 500 445 Output Total 335 30 Balance 165 415 - Medications Medications: Current Medications Acetylcysteine (Acetylcysteine 20%) 4 ml INH RQ8 RICKY Last Admin: 08/25/16 15:57 Dose: Not Given Albuterol/Ipratropium (Duoneb 3 Mg/0.5 Mg (3 Ml) Ud) 3 ml INH RQ2 PRN PRN Reason: Shortness of Breath Albuterol/Ipratropium (Duoneb 3 Mg/0.5 Mg (3 Ml) Ud) 3 ml INH RQ8 RICKY Last Admin: 08/25/16 15:57 Dose: Not Given Enoxaparin Sodium (Lovenox) 90 mg 1 mg/kg (90 mg) SC Q12H RICKY Last Admin: 08/25/16 09:00 Dose: 90 mg Doxycycline Hyclate 100 mg/ (Sodium Chloride) 100 mls @ 100 mls/hr IVPB Q12H RICKY Last Admin: 08/25/16 11:45 Dose: 100 mls/hr Cefepime HCl 1 gm/ Dextrose 50 mls @ 100 mls/hr IVPB Q8H RICKY Last Admin: 08/25/16 15:45 Dose: 100 mls/hr Insulin Human Regular (Novolin R) 0 unit SC ACHS RICKY PRN Reason: Protocol Last Admin: 08/25/16 15:48 Dose: Not Given Pantoprazole Sodium (Protonix Ec Tab) 40 mg PO DAILY [facility] Last Admin: 08/25/16 09:01 Dose: 40 mg - Labs Labs: 08/24/16 08:50 08/24/16 08:50 APTT 31 SECONDS (21-34) 08/22/16 18:04 - Constitutional Appears: No Acute Distress - Head Exam Head Exam: ATRAUMATIC, NORMOCEPHALIC - Eye Exam Eye Exam: Normal appearance - ENT Exam ENT Exam: Mucous Membranes Moist - Neck Exam Neck Exam: Full ROM, Normal Inspection - Respiratory Exam Respiratory Exam: Decreased Breath Sounds - Cardiovascular Exam Cardiovascular Exam: REGULAR RHYTHM - GI/Abdominal Exam GI & Abdominal Exam: Soft, Normal Bowel Sounds - Extremities Exam Extremities Exam: Pedal Edema - Neurological Exam Neurological Exam: Awake Assessment and Plan (1) COPD (chronic obstructive pulmonary disease) Assessment & Plan: Continue nebulizer treatment and BiPAP during the night or as needed Status: Chronic (2) Pulmonary embolism Assessment & Plan: Continue anticoagulation for now patient is being treated for pneumonia Follow-up chest x-ray Oncology evaluation Status: Acute (3) History of lung cancer Status: Chronic
[2016-08-26] MEDS: Albuterol-Ipratrop 3 mg / 0.5 (3 ml) UD INH SCH ×2 (08:37→15:57)
[2016-08-26] MEDS: Acetylcysteine 20% Inhal Soln (4ml) INH SCH ×2 (08:37→15:56)
[2016-08-26 08:43] LABS: BASO % 1.3 % (0.0-2.0); EOS # 0.2 K/uL (0.0-0.7); EOS % 4.4 % (0.0-4.0); HEMATOCRIT 30.7 % (34.0-47.0); LYMPH # 0.6 K/uL (1.0-4.3); LYMPH % 17.8 % (20.0-40.0); MEAN CELL VOLUME 92.4 fL (81.0-99.0); MEAN CORPUSCULAR HEMOGLOBIN 29.5 pg (27.0-31.0); MEAN PLATELET VOLUME 7.6 fL (7.2-11.7); MONO # 0.5 K/uL (0.0-0.8); MONO % 14.1 % (0.0-10.0); NRBC % 0.1 % (0.0-2.0); RED CELL DISTRIBUTION WIDTH 16.7 % (11.5-14.5); WHITE BLOOD COUNT 3.6 K/uL (4.8-10.8)
[2016-08-26 09:02] LABS: CHLORIDE 101 mmol/L (98-107); SODIUM 137 mmol/L (132-148)
[2016-08-26 09:03] LABS: POTASSIUM 3.7 mmol/L (3.6-5.2)
[2016-08-26 09:05] LABS: ALKALINE PHOSPHATASE 67 U/L (38-126); AST/SGOT 20 U/L (14-36); BILIRUBIN,TOTAL 0.6 mg/dL (0.2-1.3); BLOOD UREA NITROGEN 14 mg/dL (7-17); CARBON DIOXIDE 29 mmol/L (22-30); GFR AFRICAN-AMERICAN > 60; GLUCOSE,RANDOM 84 mg/dL (65-105); PHOSPHOROUS 2.9 mg/dL (2.5-4.5); TOTAL PROTEIN 6.1 g/dL (6.3-8.3)
[2016-08-26 09:06] LABS: ALT/SGPT 20 U/L (9-52); CALCIUM 8.4 mg/dl (8.6-10.4); MAGNESIUM 1.5 mg/dL (1.6-2.3)
[2016-08-26] MEDS: (Novolin R) Insulin Human Regular 100 units/ml vial SC SCH ×2 (10:01→12:25)
[2016-08-26] MEDS: Enoxaparin 100 mg Syringe SC SCH (10:01)
[2016-08-26] MEDS: Pantoprazole 40 mg EC Tab PO SCH (10:01)
--- NOTE | 2016-08-26 11:42 | CP.PCM.PN ---
Subjective - Date & Time of Evaluation Date of Evaluation: 08/26/16 Time of Evaluation: 11:40 - Subjective Subjective: PGY-[address] Pritchett's service: Pt seen and examined at bedside. Pt recently transferred to [facility] from ICU. Pt found in NAD. Objective - Vital Signs/Intake and Output Vital Signs (last 24 hours): Temp Pulse Resp BP Pulse Ox 97.9 F 84 20 108/74 95 08/26/16 08:53 08/26/16 08:53 08/26/16 08:53 08/26/16 08:53 08/26/16 08:53 Intake and Output: 08/26/16 08/26/16 06:59 18:59 Intake Total 100 Balance 100 - Medications Medications: Current Medications Acetylcysteine (Acetylcysteine 20%) 4 ml INH RQ8 RICKY Last Admin: 08/26/16 08:37 Dose: 4 ml Albuterol/Ipratropium (Duoneb 3 Mg/0.5 Mg (3 Ml) Ud) 3 ml INH RQ2 PRN PRN Reason: Shortness of Breath Albuterol/Ipratropium (Duoneb 3 Mg/0.5 Mg (3 Ml) Ud) 3 ml INH RQ8 RICKY Last Admin: 08/26/16 08:37 Dose: 3 ml Enoxaparin Sodium (Lovenox) 90 mg 1 mg/kg (90 mg) SC Q12H [facility] Last Admin: 08/26/16 10:01 Dose: 90 mg Doxycycline Hyclate 100 mg/ (Sodium Chloride) 100 mls @ 100 mls/hr IVPB Q12H RICKY Last Admin: 08/26/16 11:18 Dose: 100 mls/hr Cefepime HCl 1 gm/ Dextrose 50 mls @ 100 mls/hr IVPB Q8H RICKY Last Admin: 08/26/16 06:45 Dose: 100 mls/hr Magnesium Sulfate/Dextrose (Magnesium Sulfate 1 Gm/100 Ml D5w) 1 gm in 100 mls @ 125 mls/hr IVPB Q30M [facility] Stop: 08/26/16 12:59 Insulin Human Regular (Novolin R) 0 unit SC ACHS RICKY PRN Reason: Protocol Last Admin: 08/26/16 10:01 Dose: Not Given Pantoprazole Sodium (Protonix Ec Tab) 40 mg PO DAILY [facility] Last Admin: 08/26/16 10:01 Dose: 40 mg - Labs Labs: 08/26/16 08:29 08/26/16 08:29 APTT 31 SECONDS (21-34) 08/22/16 18:04 Assessment and Plan - Assessment and Plan (Free Text) Plan: SOB 08/24: Breathing is better, IV antibiotics for now and also nasal canula or BIPAP for support, on theraputic Lovenox for probably PE see emr for CT scan results. 08/23: Patient admitted to ICU, on IV antibiotics and also on BIPAP as needed, she is also on theraputic Lovenox for probably PE as well. Pending official results of lower extremity doppler. 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 Recommend follow up. Partial prior pneumonectomy on left. Extensive LLL atelectasis. RLL atelectasis as well. Thickening of interlobular septa and ground glass opacity involving lung rodriguez, right greater than left. No lung mass. Small pericardial effusion. Marked shift of heart and secondary to prior pneumonectomy. (see full report) BIPAP O2 Duonebs ONCE in ED Solumedrol 125mg IV ONCE in ED Possible HAP Pt resident at [place], d/c one month ago CXR (08/22/16): Patchy infiltrates on right side lower lobe (wet read, f/u official report) Continue Cefepime 1gm IVPB Q8H Continue Doxycycline 100mg IVPB Q12H Azithromycin 500mg IV given once in ED Ceftiaxone 1gm IV once in ED Possible PE -therapeutic Lovenox 80mg SC Q12h -08/22/16 Duplex scan LE artery: unremarkable -08/22/16 CT chest: Evaluation of the pulmonary arteries technically limited, multiple questionable areas of filling defect visualized in segmental branches on the right. Followup evaluation recommended. Evidence of prior partial left pneumonectomy. Extensive left lower lobe atelectasis. Right lower lobe atelectasis. Thickening of interlobular septa and ground glass opacity involving lung rodriguez, right greater than left. No lung mass visualized. Small pericardial effusion. Marked shift of the heart and secondary to prior pneumonectomy as well as atelectasis. AMS Baseline AAOx3 according to daughter CT Head (08/22/16): negative Monitor Hx of Urinary retention Quinones catheter placed in ED DM - Hold Home Januvia 100mg PO daily - HBA1c: 6.5 - Insulin sliding scale - medium - Accuchecks Hx of Hypertension - hypotensive since admission - NS 1 L x 2 given in ED - Monitor BP Hx of Lung CA - Xray shows LLL consolidation - Continue Oxycodone 10mg PO q6hrs prn pain, moderate - Colace 100mg PO BID - Consulted Palliative Care for goals of care, help appreciated Abnormal UA 08/24: urine culture is back as E. coli sensitive to Cefepime. UA (08/22/16): LE 1+, Nitrate positive, WBC 14, blood 1+ Hypokalemia 3.0 on initial lab work, repleted KCL 20 meq x 2 IVPB Hx of Anemia H/H 11.1/34.7, stable In line with Baseline Monitor Prophylaxis Protonix 40 mg PO Daily Lovenox 80mg SC Q12H SCD
[2016-08-26] MEDS: Magnesium Sulfate 1 gm in D5W 1 GM/100 ML BAG IVPB SCH ×2 (12:22→13:40)
--- NOTE | 2016-08-26 13:28 | CP.PCM.DIS ---
Provider - Provider Date of Admission: 08/22/16 22:12 Attending physician: Asim Pritchett Jr, MD Primary care physician: Shreyas Consults: Hem/Onc: Dr. Roa Pulmonology: Dr. Diaz Time Spent in preparation of Discharge (in minutes): 40 Diagnosis - Discharge Diagnosis (1) Pulmonary embolism Status: Acute Comment: CT angio: filling defects. Probable PE. treated with therapeutic lovenox. Switched to Xarelto. Hospital Course - Lab Results Lab Results: Micro Results 08/23/16 12:25 Blood Blood Culture - Preliminary NO GROWTH AFTER 3 DAYS 08/23/16 12:25 Blood Blood Culture - Preliminary NO GROWTH AFTER 3 DAYS 08/22/16 22:56 Urine,Catheterized Urine Culture - Final Escherichia Coli 08/22/16 23:45 Nose MRSA Culture (Admit) - Final MRSA NOT DETECTED Most Recent Lab Values WBC 3.6 K/uL (4.8-10.8) L 08/26/16 08:29 RBC 3.33 Mil/uL (3.80-5.20) L 08/26/16 08:29 Hgb 9.8 g/dL (11.0-16.0) L 08/26/16 08:29 Hct 30.7 % (34.0-47.0) L 08/26/16 08:29 MCV 92.4 fL (81.0-99.0) 08/26/16 08:29 MCH 29.5 pg (27.0-31.0) 08/26/16 08:29 MCHC 32.0 g/dL (33.0-37.0) L 08/26/16 08:29 RDW 16.7 % (11.5-14.5) H 08/26/16 08:29 Plt Count 189 K/uL (130-400) 08/26/16 08:29 MPV 7.6 fL (7.2-11.7) 08/26/16 08:29 Neut % (Auto) 62.4 % (50.0-75.0) 08/26/16 08:29 Lymph % (Auto) 17.8 % (20.0-40.0) L 08/26/16 08:29 [place] % (Auto) 14.1 % (0.0-10.0) H 08/26/16 08:29 Eos % (Auto) 4.4 % (0.0-4.0) H 08/26/16 08:29 Baso % (Auto) 1.3 % (0.0-2.0) 08/26/16 08: Neut # 2.3 K/uL (1.8-7.0) 08/26/16 08:29 Lymph # 0.6 K/uL (1.0-4.3) L 08/26/16 08:29 [place] # 0.5 K/uL (0.0-0.8) 08/26/16 08:29 Eos # 0.2 K/uL (0.0-0.7) 08/26/16 08: Baso # 0.0 K/uL (0.0-0.2) 08/26/16 08:29 APTT 31 SECONDS (21-34) 08/22/16 18:04 Puncture Site Rra 08/24/16 08:43 pCO2 52 mm/Hg (35-45) H 08/24/16 08:43 pO2 83 mm/Hg (80-100) 08/24/16 08:43 HCO3 28.0 mmol/L (21-28) 08/24/16 08:43 ABG pH 7.37 (7.35-7.45) 08/24/16 08:43 ABG Total CO2 31.7 mmol/L (22-28) H 08/24/16 08:43 ABG O2 Saturation 98.5 % (95-98) H 08/24/16 08:43 ABG Base Excess 4.0 mmol/L (-2.0-3.0) H 08/24/16 08:43 ABG Hemoglobin 9.7 g/dL (11.7-17.4) L 08/24/16 08:43 ABG Carboxyhemoglobin 1.8 % (0.5-1.5) H 08/24/16 08:43 POC ABG HHb (Measured) 1.5 % (0.0-5.0) 08/24/16 08:43 ABG Methemoglobin 0.8 % (0.0-3.0) 08/24/16 08:43 Misael Test Po 08/24/16 08:43 VBG pH 7.35 (7.32-7.43) 08/22/16 18:00 VBG pCO2 69 mmHg (40-60) H* 08/22/16 18:00 VBG HCO3 30.8 mmol/L 08/22/16 18:00 VBG Total CO2 40.2 mmol/L (22-28) H 08/22/16 18:00 VBG O2 Sat (Calc) 37.9 % (40-65) L 08/22/16 18:00 VBG Base Excess 9.7 mmol/L (0.0-2.0) H 08/22/16 18:00 VBG Potassium 3.0 mmol/L (3.6-5.2) L 08/22/16 18:00 A-a O2 Difference 80.0 mm/Hg 08/24/16 08:43 Respiratory Index 1.0 08/24/16 08:43 Hgb O2 Saturation 95.8 % (95.0-98.0) 08/24/16 08:43 Sodium 143.0 mmol/l (132-148) 08/22/16 18:00 Chloride 106.0 mmol/L (98-107) 08/22/16 18:00 Glucose 110 mg/dl (65-105) H 08/22/16 18:00 Lactate 0.9 mmol/L (0.7-2.1) 08/22/16 18:00 Liter Flow 3.0 08/24/16 08:43 FiO2 32.0 % 08/24/16 08:43 Inspiratory BiPAP 12 08/23/16 10:42 Expiratory BiPAP 6 08/23/16 10:42 Crit Value Called To Dr lee 08/22/16 18:00 Crit Value Called By Juvencio galan 08/22/16 18:00 Crit Value Read Back Y 08/22/16 18:00 Blood Gas Notified Time 1823 08/22/16 18:00 Sodium 137 mmol/L (132-148) 08/26/16 08:29 Potassium 3.7 mmol/L (3.6-5.2) 08/26/16 08:29 Chloride 101 mmol/L (98-107) 08/26/16 08:29 Carbon Dioxide 29 mmol/L (22-30) 08/26/16 08:29 Anion Gap 11 (10-20) 08/26/16 08:29 BUN 14 mg/dL (7-17) 08/26/16 08:29 Creatinine 0.8 MG/DL (0.7-1.2) 08/26/16 08:29 Est GFR ( Amer) > 60 08/26/16 08:29 Est GFR (Non-Af Amer) > 60 08/26/16 08:29 POC Glucose (mg/dL) 138 mg/dL (65-110) H 08/26/16 12:11 Random Glucose 84 mg/dL (65-105) 08/26/16 08:29 Hemoglobin A1c 6.5 % (4.2-6.5) 08/22/16 18:04 Calcium 8.4 mg/dl (8.6-10.4) L 08/26/16 08:29 Phosphorus 2.9 mg/dL (2.5-4.5) 08/26/16 08:29 Magnesium 1.5 mg/dL (1.6-2.3) L 08/26/16 08:29 Total Bilirubin 0.6 mg/dL (0.2-1.3) 08/26/16 08:29 AST 20 U/L (14-36) 08/26/16 08:29 ALT 20 U/L (9-52) 08/26/16 08:29 Alkaline Phosphatase 67 U/L (38-126) 08/26/16 08:29 Troponin I < 0.0120 ng/mL (0.00-0.120) 08/23/16 06:24 Total Protein 6.1 g/dL (6.3-8.3) L 08/26/16 08:29 Albumin 3.1 g/dL (3.5-5.0) L 08/26/16 08:29 Globulin 3.0 gm/dL (2.2-3.9) 08/26/16 08:29 Albumin/Globulin Ratio 1.0 (1.0-2.1) 08/26/16 08:29 Triglycerides 139 mg/dL (0-149) 08/22/16 18:04 Cholesterol 205 mg/dL (0-199) H 08/22/16 18:04 LDL Cholesterol Direct 135 mg/dL (0-129) H 08/22/16 18:04 HDL Cholesterol 36 mg/dL (30-70) 08/22/16 18:04 Procalcitonin 0.07 NG/ML (0.19-0.49) L 08/23/16 06:24 Venous Blood Potassium 3.0 mmol/L (3.6-5.2) L 08/22/16 18:00 Urine Color Yellow (YELLOW) 08/22/16 23:06 Urine Clarity Clear (Clear) 08/22/16 23:06 Urine pH 5.0 (5.0-8.0) 08/22/16 23:06 Ur Specific [place] 1.032 (1.003-1.030) H 08/22/16 23:06 Urine Protein Negative mg/dL (NEGATIVE) 08/22/16 23:06 Urine Glucose (UA) Normal mg/dL (Normal) 08/22/16 23:06 Urine Ketones Negative mg/dL (NEGATIVE) 08/22/16 23:06 Urine Blood 1+ (NEGATIVE) H 08/22/16 23:06 Urine Nitrate Positive (NEGATIVE) H 08/22/16 23:06 Urine Bilirubin Negative (NEGATIVE) 08/22/16 23:06 Urine Urobilinogen Normal mg/dL (0.2-1.0) 08/22/16 23:06 Ur Leukocyte Esterase 1+ Shalini/uL (Negative) H 08/22/16 23:06 Urine WBC (Auto) 14 /hpf (0-5) H 08/22/16 23:06 Urine RBC (Auto) 5 /hpf (0-3) H 08/22/16 23:06 Urine Bacteria Few (<OCC) H 08/22/16 23:06 Blood Type O NEGATIVE 08/22/16 18:13 Antibody Screen Negative 08/22/16 18:13 - Hospital Course Hospital Course: On admission: Patient is a 60 year old female with PMHx of COPD, Depression, Type two diabetes mellitus, HTN, HLD, Lung Cancer with lobectomy, who presents to the ED after being brought in by family members for deteriorating mental status and lethargy, cough and SOB for the past few days. Pts daughter, Ronda, was reached over the phone by this life underwriter. The pt had been discharged one month ago from [place] according to the daughter. The patient had been "doing well - using her home oxygen but getting around ok with her walker" until the last few days. Per daughter the whole family has had colds recently, with symptoms of "fever (subjective), chills, dry cough, sneezing, headache." Pt started getting these symptoms a few days ago. Pt has also been complaining of increased leg swelling recently, with increased pain/difficulty ambulation, and increased bedrest. These symptoms were associated with shortness of breath despite her 3 liters of home O2. Daughter has also noticed pt "slurring words recently, and change in orientation level. Daughter states pt is normally AAOx3. She called Dr. Pritchett to get her treated before symptoms became worse and she "landed back in the hospital." Dr. Pritchett advised the pt to go the hospital. Pt on home oxygen : 3 liters, and uses walker to ambulate at baseline. Hospital course: Pt admitted 08/22 for pneumonia, CO2 retention, lethargy, probably PE. Pt admitted directly to ICU after abnormal ABG - showing CO2 retention, and CT Chest Angio with filling defects. Pt started on therapeutic Lovenox for PE, and BiPAP for CO2 retention. CXR on admission showed patchy infiltrates b/l so with pts jail history, she was started on Cefepime/Doxycycline IV antibiotics. ABG improved while in ICU, and improved clinical status led to pt transfer to tele floor on 08/25/16. Pt deemed stable for [facility] [place] - Date & Time of H&P Date of H&P: 08/22/16 Time of H&P: 22:28 Discharge Exam - Head Exam Head Exam: ATRAUMATIC, NORMOCEPHALIC - Eye Exam Eye Exam: EOMI Pupil Exam: PERRL - ENT Exam ENT Exam: Mucous Membranes Moist - Neck Exam Additional comments: large body habitus noted - Respiratory Exam Respiratory Exam: Clear to PA & Lateral. absent: Rales, Rhonchi, Wheezes - Cardiovascular Exam Cardiovascular Exam: REGULAR RHYTHM, +S1, +S2 - GI/Abdominal Exam GI & Abdominal Exam: Normal Bowel Sounds, Soft. absent: Tenderness - Extremities Exam Extremities exam: normal inspection, pedal edema (1+) - Neurological Exam Neurological exam: Alert, CN II-XII Intact - Psychiatric Exam Psychiatric exam: Normal Affect, Normal Mood - Skin Skin Exam: Dry, Normal Color, Warm Discharge Plan - Follow Up Plan Condition: FAIR Disposition: REHAB FACILITY/REHAB UNIT Clinical Quality Measures - CQM - VTE Did patient receive overlap therapy during hosptialization?: Yes If yes, what was given to the patient?: Lovenox (therapeutic for PE), switch to Xarelto on D/C Surgical Overlap Therapy Reason during Hospitalization: none Medical Reason for Overlap Therapy during Hospitalization: Switch to xarelto Is patient being discharged on overlap therapy?: Yes If yes, what prescription has been given to the patient?: Xarelto Medical Reason for discharge Overlap Therapy: Yes
[2016-08-26 15:36] VITALS: BP 102/69; RESP 22; TEMP 98; O2SAT 94
--- NOTE | 2016-08-26 18:22 | CP.PCM.PN ---
Objective - Vital Signs/Intake and Output Vital Signs (last 24 hours): Temp Pulse Resp BP Pulse Ox 98 F 94 H 22 102/69 94 L 08/26/16 15:35 08/26/16 15:35 08/26/16 15:35 08/26/16 15:35 08/26/16 15:35 Intake and Output: 08/26/16 08/26/16 06:59 18:59 Intake Total 100 Balance 100 - Medications Medications: Current Medications Acetylcysteine (Acetylcysteine 20%) 4 ml INH RQ8 RICKY Last Admin: 08/26/16 15:56 Dose: 4 ml Albuterol/Ipratropium (Duoneb 3 Mg/0.5 Mg (3 Ml) Ud) 3 ml INH RQ2 PRN PRN Reason: Shortness of Breath Albuterol/Ipratropium (Duoneb 3 Mg/0.5 Mg (3 Ml) Ud) 3 ml INH RQ8 RICKY Last Admin: 08/26/16 15:57 Dose: 3 ml Enoxaparin Sodium (Lovenox) 90 mg 1 mg/kg (90 mg) SC Q12H RICKY Last Admin: 08/26/16 10:01 Dose: 90 mg Doxycycline Hyclate 100 mg/ (Sodium Chloride) 100 mls @ 100 mls/hr IVPB Q12H RICKY Last Admin: 08/26/16 11:18 Dose: 100 mls/hr Cefepime HCl 1 gm/ Dextrose 50 mls @ 100 mls/hr IVPB Q8H RICKY Last Admin: 08/26/16 16:14 Dose: 100 mls/hr Insulin Human Regular (Novolin R) 0 unit SC ACHS RICKY PRN Reason: Protocol Last Admin: 08/26/16 12:25 Dose: Not Given Pantoprazole Sodium (Protonix Ec Tab) 40 mg PO DAILY [facility] Last Admin: 08/26/16 10:01 Dose: 40 mg - Labs Labs: 08/26/16 08:29 08/26/16 08:29 APTT 31 SECONDS (21-34) 08/22/16 18:04 Assessment and Plan (1) COPD (chronic obstructive pulmonary disease) Status: Chronic (2) Pulmonary embolism Status: Acute (3) History of lung cancer Status: Chronic
[2016-08-26 18:26] VITALS: PULSE 90
== END 2016-08-26 20:00 | DRG 175 ==
LOC: C.ER 17:04 → C.9I 22:12 → C.5T 08-25 16:30
PROVIDERS: ADMIT Internal Medicine; ATTEND Internal Medicine
DX: I26.99 Other pulmonary embolism without acute cor pulmonale (principal); J96.92 Respiratory failure, unspecified with hypercapnia; J18.9 Pneumonia, unspecified organism; E87.2 Acidosis; J44.0 Chronic obstructive pulmonary disease with (acute) lower respiratory infection; I31.3 Pericardial effusion (noninflammatory); J98.11 Atelectasis; E11.9 Type 2 diabetes mellitus without complications; E87.6 Hypokalemia; I10 Essential (primary) hypertension; E78.5 Hyperlipidemia, unspecified; Z87.891 Personal history of nicotine dependence; Z90.2 Acquired absence of lung [part of]; Z99.81 Dependence on supplemental oxygen; Z85.118 Personal history of other malignant neoplasm of bronchus and lung

== ENCOUNTER 2016-10-16 13:57 | Emergency (ER) | payer MEDICARE, OTHER ==
[2016-10-16 13:57] VITALS: BMI 42.3
[2016-10-16 15:40] LABS: BASO % 0.4 % (0.0-2.0); EOS # 0.1 K/uL (0.0-0.7); EOS % 2.1 % (0.0-4.0); HEMOGLOBIN 10.7 g/dL (11.0-16.0); LYMPH # 0.9 K/uL (1.0-4.3); LYMPH % 15.7 % (20.0-40.0); MEAN CORPUSCULAR HGB CONC 31.5 g/dL (33.0-37.0); MONO # 0.5 K/uL (0.0-0.8); MONO % 9.2 % (0.0-10.0); NEUT # 4.4 K/uL (1.8-7.0); NEUT % 72.6 % (50.0-75.0); RBC 3.82 Mil/uL (3.80-5.20); RED CELL DISTRIBUTION WIDTH 17.5 % (11.5-14.5)
[2016-10-16 15:46] LABS: ALBUMIN 3.9 g/dL (3.5-5.0)
[2016-10-16 15:49] LABS: AST/SGOT 25 U/L (14-36); BLOOD UREA NITROGEN 20 mg/dL (7-17); GFR AFRICAN-AMERICAN > 60; GFR NON-AFRICAN AMERICAN 56
[2016-10-16 15:50] LABS: ALT/SGPT 26 U/L (9-52); CALCIUM 8.5 mg/dl (8.6-10.4); HDL CHOLESTEROL 41 mg/dL (30-70); MAGNESIUM 1.7 mg/dL (1.6-2.3); PROTHROMBIN TIME 11.3 SECONDS (9.7-12.2)
[2016-10-16 16:01] LABS: LDL CHOLESTEROL 141 mg/dL (0-129)
--- NOTE | 2016-10-16 16:06 | CT ---
PROCEDURE: CT HEAD WITHOUT CONTRAST. HISTORY: Slurred speech, balance off x 1 week COMPARISON: Noncontrast head CT performed 08/22/16 TECHNIQUE: Axial computed tomography images were obtained through the head/brain without intravenous contrast. Radiation dose: Total exam DLP = 804.65 mGy-cm. This CT exam was performed using one or more of the following dose reduction techniques: Automated exposure control, adjustment of the mA and/or kV according to patient size, and/or use of iterative reconstruction technique. FINDINGS: HEMORRHAGE: No intracranial hemorrhage. BRAIN: No mass effect or edema. Intracranial atherosclerotic calcifications. The schneider-white matter differentiation appears intact. Please note that MRI with diffusion imaging is more sensitive in the detection of acute ischemic event. VENTRICLES: No hydrocephalus. CALVARIUM: Unremarkable. PARANASAL SINUSES: Unremarkable as visualized. No significant inflammatory changes. MASTOID AIR CELLS: Unremarkable as visualized. No inflammatory changes. OTHER FINDINGS: None. IMPRESSION: No acute intracranial pathology identified. Please note that MRI with diffusion imaging is more sensitive in the detection of acute ischemic event.
--- NOTE | 2016-10-16 16:17 | RAD ---
HISTORY: Slurred speech. H/o lung CA COMPARISON: Chest x-ray performed 08/25/16 TECHNIQUE: Chest PA and lateral FINDINGS: Right-sided [employer] LUNGS: Left lower lobe consolidative changes and probable pleural effusion appear stable. The right meir thorax appears clear. Please note that chest x-ray has limited sensitivity for the detection of pulmonary masses. CARDIOVASCULAR: Partially obscured. Dense atherosclerotic calcifications of the aorta. OSSEOUS STRUCTURES: Osseous demineralization. Degenerative changes. VISUALIZED UPPER ABDOMEN: Unremarkable. OTHER FINDINGS: None. IMPRESSION: Left lower lobe consolidative changes and probable pleural effusion appear stable. The right meir thorax appears clear.
[2016-10-16 17:10] LABS: ARTERIAL BLOOD GAS HCO3 27.1 mmol/L (21-28); ARTERIAL BLOOD GAS HEMOGLOBIN 8.6 g/dL (11.7-17.4); ARTERIAL BLOOD GAS O2 SAT 99.4 % (95-98); ARTERIAL BLOOD GAS PCO2 45 mm/Hg (35-45); ARTERIAL BLOOD GAS PO2 126 mm/Hg (80-100); ARTERIAL BLOOD GAS TCO2 29.3 mmol/L (22-28)
[2016-10-16 17:17] VITALS: O2SAT 100
[2016-10-16] MEDS ORDERED: Sodium Chloride 0.9% 1,000 ML IV ONE (17:18)
[2016-10-16] MEDS ORDERED: Sodium Chloride 0.9% 1,000 ML ONE (17:23)
[2016-10-16 18:37] VITALS: BP 108/71; PULSE 94; RESP 17
--- NOTE | 2016-10-16 18:38 | C.PDOC ---
History Of Present Illness Pt has been slightly slurring her speech and c/o feeling off balance. Time Seen by Provider: 10/16/16 15:09 Chief Complaint (Nursing): Weakness/Neurological Deficit History Per: Patient Onset/Duration Of Symptoms: Days (about 1 week), Waxing/Waning Current Symptoms Are (Timing): Still Present Fall Associated With With Symptoms: No Severity: Moderate Additional History Per: Prior Records - Symptoms Of CVA Recent Head Trauma: No Past Medical History Reviewed: Historical Data, Nursing Documentation, Vital Signs Vital Signs: Last Vital Signs Temp 98.4 F 10/16/16 14:19 Pulse 94 H 10/16/16 18:25 Resp 17 10/16/16 18:25 BP 108/71 10/16/16 18:25 Pulse Ox 100 10/16/16 18:38 - Medical History PMH: Anemia, COPD (on home O2), Depression, Diabetes, Gastritis, HTN, Hypercholesterolemia, Malignancy (LUNG MASS) [facility] CLOSED [PERCUTANEOUS] [NEEDLE] BIOPSY OF LUNG (02/03/13) ESOPHAGOGASTRODUODENOSCOPY [EGD] W/CLOSED BIOPSY (02/03/13) FIBER-OPTIC BRONCHOSCOPY (04/21/13) INSERTION OF TOTALLY IMPLANTABLE VASC ACCESS DEVIC (09/22/14) LYMPHATIC STRUCT BIOPSY (04/21/13) OPEN BIOPSY OF LUNG (02/03/13) PACKED CELL TRANSFUSION (04/21/13) RADICAL EXCIS SKIN LES (11/21/13) RADIOTHERAPEUT PROC NEC (05/06/13) VENOUS CATHETERIZATION NEC (02/03/13) Family History: States: Unknown Family Hx - Social History Hx Tobacco Use: No Hx Alcohol Use: Yes (Former.) Hx Substance Use: No - Immunization History Hx Tetanus Toxoid Vaccination: No Hx Influenza Vaccination: Yes Hx Pneumococcal Vaccination: Yes Review Of Systems Except As Marked, All Systems Reviewed And Found Negative. Constitutional: Negative for: Fever Cardiovascular: Negative for: Chest Pain Respiratory: Negative for: Shortness of Breath Gastrointestinal: Negative for: Vomiting, Abdominal Pain Musculoskeletal: Negative for: Neck Pain Skin: Negative for: Rash Neurological: Negative for: Weakness, Numbness, Seizures Physical Exam - Physical Exam Appears: No Acute Distress, Chronically Ill Skin: Normal Color, Warm, Dry Head: Atraumatic, Normacephalic Eye(s): bilateral: PERRL, EOMI Neck: Normal ROM, Supple Cardiovascular: Rhythm Regular Respiratory: Decreased Breath Sounds (left lower) Gastrointestinal/Abdominal: Soft, No Tenderness Extremity: Normal ROM Neurological/Psych: Oriented x3, No Normal Speech (slightly slurred), Normal Cognition, Normal Cranial Nerves, No Cerebellar Signs, Normal Motor, Normal Sensation ED Course And Treatment - Laboratory Results Result Diagrams: 10/16/16 15:29 10/16/16 15:29 ECG: Interpreted By Me, Viewed By Me ECG Rhythm: Sinus Rhythm, Nonspecific Changes ECG Interpretation: No Acute Changes Rate From EC O2 Sat by Pulse Oximetry: 100 Pulse Ox Interpretation: Normal - Radiology CXR: Viewed By Me, Read By Radiologist CXR Interpretation: Yes: Other (Left lower lobe consolidative changes and probable pleural effusion appear stable. The right meir thorax appears clear.) - CT Scan/US CT head Other Rad Studies (CT/US): Read By Radiologist, Radiology Report Reviewed CT/US Interpretation: IMPRESSION: No acute intracranial pathology identified. Progress Note: Pt feels better and wants to go home. Reassessment Condition: Improved Progress - Interventions Interventions:: Observation, Intravenous fluid - Data Reviewed Data Reviewed: Lab, Diagnostic imaging, EKG, Old records - Patient Status Patient status: Mostly improved - Continuity of Care Discussed patient case with:: Patient, Family-HIPPA compliant, ED Nurse - Patient Plan Patient Plan: Discharge, F/U with PCP, Continue present meds Disposition Counseled Patient/Family Regarding: Studies Performed, Diagnosis, Need For Followup - Disposition Referrals: Asim Pritchett Jr., MD [Medical Doctor] - Disposition: HOME/ ROUTINE Disposition Time: 18:45 Condition: IMPROVED Additional Instructions: Follow up with your doctor within 1-2 days. Return to the ER if you develop weakness, numbness, worsening of symptoms or if you have any other concerns. Forms: [employer] [facility] ([place]), General Discharge Instructions - Clinical Impression Clinical Impression: Dehydration
[2016-10-16 18:52] VITALS: TEMP 98.8
--- NOTE | 2016-10-17 12:56 | CARD ---
APPROVED REPORT EKG Measurement Heart [id number] [id number] <Conclusion> Normal sinus rhythm Left axis deviation Low voltage QRS Inferior infarct, age undetermined Anterolateral infarct, age undetermined Abnormal ECG
== END 2016-10-16 18:59 | disposition home or self-care (01) ==
LOC: C.ER 13:57
DX: E86.0 Dehydration (principal)

== ENCOUNTER 2016-11-13 15:45 | Inpatient (IN) | payer MEDICARE, MEDICAID ==
[2016-11-13 15:46] VITALS: BMI 42.3
--- NOTE | 2016-11-13 16:15 | C.PDOC ---
History Of Present Illness 61 yr old female presents to the ER with complaints of increasing lethargy and cough with brown sputum for the past 4 days. Patient also reports of increasing bilateral leg swelling and mild SOB. She reports lethargy. Patient denies fever , chills, chest pain, nausea, vomiting, abdominal pain, diarrhea, dysuria, focal weakness. PMD: Dr. Pritchett Time Seen by Provider: 11/13/16 16:04 Chief Complaint (Nursing): Weakness/Neurological Deficit History Per: Patient History/Exam Limitations: no limitations Onset/Duration Of Symptoms: Days (4) Current Symptoms Are (Timing): Still Present Past Medical History Reviewed: Historical Data, Nursing Documentation, Vital Signs Vital Signs: Last Vital Signs Temp 98.2 F 11/13/16 15:49 Pulse 97 H 11/13/16 15:55 Resp 20 11/13/16 15:49 BP 96/64 L 11/13/16 15:49 Pulse Ox 88 L 11/13/16 17:12 - Medical History PMH: Anemia, COPD (on home O2), Depression, Diabetes, Gastritis, HTN, Hypercholesterolemia, Malignancy (LUNG MASS) Surgical History: Endoscopy - [facility] Procedures CLOSED [PERCUTANEOUS] [NEEDLE] BIOPSY OF LUNG (02/03/13) ESOPHAGOGASTRODUODENOSCOPY [EGD] W/CLOSED BIOPSY (02/03/13) FIBER-OPTIC BRONCHOSCOPY (04/21/13) INSERTION OF TOTALLY IMPLANTABLE VASC ACCESS DEVIC (09/22/14) LYMPHATIC STRUCT BIOPSY (04/21/13) OPEN BIOPSY OF LUNG (02/03/13) PACKED CELL TRANSFUSION (04/21/13) RADICAL EXCIS SKIN LES (11/21/13) RADIOTHERAPEUT PROC NEC (05/06/13) VENOUS CATHETERIZATION NEC (02/03/13) Family History: States: No Known Family Hx - Social History Hx Tobacco Use: No Hx Alcohol Use: Yes (Former.) Hx Substance Use: No - Immunization History Hx Tetanus Toxoid Vaccination: No Hx Influenza Vaccination: Yes Hx Pneumococcal Vaccination: Yes Review Of Systems Except As Marked, All Systems Reviewed And Found Negative. Constitutional: Positive for: Other ((+) Increasing lethargy.). Negative for: Fever, Chills Cardiovascular: Negative for: Chest Pain Respiratory: Positive for: Cough, Sputum (Brown ). Negative for: Shortness of Breath Gastrointestinal: Negative for: Nausea, Vomiting, Abdominal Pain, Diarrhea Genitourinary: Negative for: Dysuria Neurological: Negative for: Weakness, Numbness Physical Exam - Physical Exam Appears: Well, Non-toxic, No Acute Distress Skin: Warm, Dry, No Rash Head: Atraumatic, Normacephalic Eye(s): bilateral: Normal Inspection, PERRL, EOMI Oral Mucosa: Moist Chest: Symmetrical, No Tenderness Cardiovascular: Rhythm Regular, No Murmur Respiratory: Rales (At the bases), Rhonchi (At the bases) Gastrointestinal/Abdominal: Normal Exam, Soft, No Tenderness, No Guarding, No Rebound Back: Normal Inspection, No CVA Tenderness Extremity: Normal ROM, No Swelling Neurological/Psych: Oriented x3, Normal Speech, Normal Motor Gait: Steady ED Course And Treatment - Laboratory Results Result Diagrams: 11/13/16 16:29 11/13/16 16:29 O2 Sat by Pulse Oximetry: 88 (RA ) Pulse Ox Interpretation: Normal Progress Note: CXR to rule out pneumonia vs CHF. Medical Decision Making Medical Decision Making: PLAN: * CXR * CBC * CMP * BNP * Troponin EKG shows NSR at 96bpm with LAD, non-specific st changes. unchanged from prior on 10/16. Cxray negative. Normal WBC. Chemistry significant for elevated bun/ creatine and low potassium. Potassium replacement ordered but will do sparingly due to renal function. IVF infusing for acute kidney injury at 100cc/ hr. Dr. Pritchett aware and recommending observation for acute kidney injury. Disposition - Disposition Disposition: HOSPITALIZED Disposition Time: 17:11 Condition: FAIR - Clinical Impression Clinical Impression: Acute kidney injury - Scribe Statement The provider has reviewed the documentation as recorded by the Gisel Rousseau Provider Attestation: All medical record entries made by the Gisel were at my direction and personally dictated by me. I have reviewed the chart and agree that the record accurately reflects my personal performance of the history, physical exam, medical decision making, and the department course for this patient. I have also personally directed, reviewed, and agree with the discharge instructions and disposition.
[2016-11-13 16:33] LABS: BASO % 0.4 % (0.0-2.0); EOS # 0.2 K/uL (0.0-0.7); EOS % 2.6 % (0.0-4.0); HEMATOCRIT 35.9 % (34.0-47.0); LYMPH # 1.1 K/uL (1.0-4.3); LYMPH % 14.8 % (20.0-40.0); MEAN CELL VOLUME 86.4 fL (81.0-99.0); MEAN CORPUSCULAR HEMOGLOBIN 28.5 pg (27.0-31.0); MONO # 0.8 K/uL (0.0-0.8); MONO % 9.9 % (0.0-10.0); RED CELL DISTRIBUTION WIDTH 15.6 % (11.5-14.5); WHITE BLOOD COUNT 7.7 K/uL (4.8-10.8)
[2016-11-13 16:42] LABS: BILIRUBIN,TOTAL 0.8 mg/dL (0.2-1.3)
[2016-11-13 16:43] LABS: ALB/GLOB RATIO 0.9 (1.0-2.1); CALCIUM 9.8 mg/dl (8.6-10.4); TOTAL PROTEIN 8.8 g/dL (6.3-8.3)
[2016-11-13 16:55] LABS: TROPONIN I 0.033 ng/mL (0.00-0.120)
[2016-11-13 17:01] LABS: POTASSIUM 2.4 mmol/L (3.6-5.2)
[2016-11-13] MEDS ORDERED: Potassium Chloride 20 mEq ER Tab PO STA (17:09)
[2016-11-13] MEDS ORDERED: Sodium Chloride 0.9% 500 ML IV ONE ×2 (17:11→17:22)
[2016-11-13] MEDS ORDERED: Sodium Chloride 0.9% 1,000 ML IV SCH (17:15)
[2016-11-13] MEDS ORDERED: Potassium Chloride 20 mEq ER Tab PO ONE ×2 (17:22→20:04)
--- NOTE | 2016-11-13 17:39 | RAD ---
HISTORY: cough COMPARISON: Chest x-ray performed 10/16/16, CTA chest performed 08/22/16 TECHNIQUE: Chest PA and lateral FINDINGS: Examination limited by habitus. LUNGS: Right-sided MediPort extends to the expected location of the SVC. Moderate-sized left lower lobe opacity may reflect pleural effusion and/or consolidation. Linear atelectasis, left mid lung zone. Suspect emphysematous changes within the left upper lobe. Right meir thorax appears clear. No definite pneumothorax. CARDIOVASCULAR: Cardiomegaly. Dense atherosclerotic calcifications of the aorta. OSSEOUS STRUCTURES: Degenerative changes. VISUALIZED UPPER ABDOMEN: Unremarkable. OTHER FINDINGS: None. IMPRESSION: Persistent left lower lobe opacity may reflect consolidation and/or effusion. Linear atelectasis, left mid lung zone. Right-sided MediPort.
[2016-11-13] MEDS ORDERED: Sodium Chloride 0.9% 1,000 ML ONE (17:42)
--- NOTE | 2016-11-13 19:23 | CP.PCM.HP ---
History of Present Illness - History of Present Illness History of Present Illness: Patient is a 61 year old female with PMHx of Anemia, COPD, Depression, DM, Gastritis, HTN, HLD, Lung CA, Shingles (2014), PAD, disc herniation who was brought in by her family because they were worried about new onset weakness worsening for 1 week and a cough with dark phlegm for 2 weeks[address] Daughter [address] Dr. Pritchett who told her to bring patient to ED. Patient usually uses walker to walk, but in the past few days it has become increasingly hard for her to walk because she is so weak. Patient also complains of headache 8/10 and dizziness. She has some mild chest pain which comes and goes. She is short of breath. Patient has bilateral leg pain. Patient is very lethargic and a poor historian. She answers my questions by shaking her head or 1 word because she is so lethargic. She can barely keep her eyes open. PMHx: Anemia, COPD, Depression, DM, Gastritis, HTN, HLD, Lung CA, Shingles (2014 ), PAD, disc herniation, PSurgHx: Right Great toe amputation, Right pretibial skin graft due "ulcers", Left hip "mass" removed (2013), Recent cervical spine surgery FMHx: Father- Lung CA, Mother - Breast CA, Heart disease Allergies: NKDA Social Hx: lives with daughter Wilfred). 2/3 pack per day tobacco for 40yrs ( quit 5 years ago), 1/2 pint of gin and 2 beers for 40yrs (Current rare ETOH use) , denies any illicit drug use. PMD: Shreyas Present on Admission - Present on Admission Any Indicators Present on Admission: No History of DVT/PE: No History of Uncontrolled Diabetes: Yes Urinary Catheter: No Decubitus Ulcer Present: No Review of Systems - Constitutional Constitutional: Daytime Sleepiness, Fatigue, Headache, Lethargy. absent: Fever , Frequent Falls - EENT Eyes: absent: Blurred Vision Nose/Mouth/Throat: Post Nasal Drip - Cardiovascular Cardiovascular: Chest Pain, Orthopnea - Respiratory Respiratory: Stridor, Change in Mucous Color - Gastrointestinal Gastrointestinal: absent: Change in Stool Character, Constipation, Diarrhea - Genitourinary Genitourinary: absent: Change in Urinary Stream, Urinary Incontinence, Urinary Urgency - Musculoskeletal Musculoskeletal: Limited Range of Motion, Muscle Cramps, Muscle Weakness, Stiffness - Integumentary Integumentary: Change in Pigmentation Additional comments: b/l lower extremity color changes - Neurological Neurological: Dizziness, Headaches - Hematologic/Lymphatic Hematologic: Easy Bleeding, Easy Bruising Past Patient History - Past Medical History & Family History Past Medical History?: Yes - Past Social History Smoking Status: Former Smoker - CARDIAC Hx Hypercholesterolemia: Yes Hx Hypertension: Yes - PULMONARY Hx Chronic Obstructive Pulmonary Disease (COPD): Yes (on home O2) - NEUROLOGICAL Hx Neurological Disorder: No - HEENT Hx HEENT Problems: Yes (wears glasses) - RENAL Hx Chronic Kidney Disease: No - ENDOCRINE/METABOLIC Hx Diabetes Mellitus Type 2: Yes - HEMATOLOGICAL/ONCOLOGICAL Hx Anemia: Yes - INTEGUMENTARY Other/Comment: mass left hip/REMOVED FEB 2014 - MUSCULOSKELETAL/RHEUMATOLOGICAL Hx Falls: No - GASTROINTESTINAL Hx Gastritis: Yes - GENITOURINARY/GYNECOLOGICAL Hx Genitourinary Disorders: Yes Hx Incontinence: Yes (ON DITROPAN) - PSYCHIATRIC Hx Depression: Yes Hx Substance Use: No - SURGICAL HISTORY Hx Surgeries: Yes Hx Amputation: Yes (RT.FOOT 2 TOES) Hx Vascular Access Device: Yes (port-a-cath insertion RCW) Other/Comment: debridment of ulcer on right leg, rt hip sx - ANESTHESIA Hx Anesthesia: Yes Hx Anesthesia Reactions: No Hx Malignant Hyperthermia: No Meds Allergies/Adverse Reactions: Allergies Allergy/AdvReac Type Severity Reaction Status Date / Time No Known Allergies Allergy Verified 11/13/16 15:53 Physical Exam - Constitutional Appears: No Acute Distress - Head Exam Head Exam: ATRAUMATIC, NORMAL INSPECTION, NORMOCEPHALIC - Eye Exam Eye Exam: EOMI, Normal appearance - ENT Exam ENT Exam: Mucous Membranes Moist - Neck Exam Neck exam: Negative for: Lymphadenopathy - Respiratory Exam Respiratory Exam: Rhonchi - Cardiovascular Exam Cardiovascular Exam: REGULAR RHYTHM, RRR. absent: Gallop, Rubs, Systolic Murmur - GI/Abdominal Exam GI & Abdominal Exam: Normal Bowel Sounds, Soft. absent: Distended - Extremities Exam Extremities exam: Positive for: tenderness - Neurological Exam Neurological exam: Alert, Oriented x3 - Psychiatric Exam Psychiatric exam: Normal Affect, Normal Mood - Skin Skin Exam: Intact, Warm Additional comments: skin color changes on lower legs bilaterally Results - Vital Signs Recent Vital Signs: Last Vital Signs Temp 98.1 F 11/13/16 19:05 Pulse 87 11/13/16 19:05 Resp 18 11/13/16 19:05 BP 100/60 11/13/16 19:05 Pulse Ox 97 11/13/16 19:05 - Labs Result Diagrams: 11/13/16 16:29 11/13/16 16:29 Assessment & Plan - Assessment and Plan (Free Text) Assessment: 1. Hypokalemia K:2.4 KCl 40 po and KCl 20 iv given in ED KDur 40 meq given at 20:00 NS @150cc/hr with 40 KCl recheck CMP admitted to telemetry 2. Lethargy secondary to COPD nasal canula albuterol prn 3. Diabetes ISS accuchecks 4. Depression continue wellbutrin 75mg po bid 5. Prophylactic Measures pepcid 20mg po daily xarelto 15mg po
[2016-11-13] MEDS ORDERED: Albuterol HFA 90 mcg/actuation (8 g) INH PRN (20:06)
[2016-11-13 20:59] LABS: BILIRUBIN,TOTAL 0.9 mg/dL (0.2-1.3); TOTAL PROTEIN 8.3 g/dL (6.3-8.3)
[2016-11-13 21:00] LABS: CALCIUM 9.2 mg/dl (8.6-10.4)
[2016-11-13] MEDS: (Novolin R) Insulin Human Regular 100 units/ml vial SC SCH (22:24)
[2016-11-14 07:32] LABS: BASO % 0.6 % (0.0-2.0); EOS # 0.2 K/uL (0.0-0.7); EOS % 3.4 % (0.0-4.0); HEMATOCRIT 32.3 % (34.0-47.0); LYMPH # 0.7 K/uL (1.0-4.3); LYMPH % 14.9 % (20.0-40.0); MEAN CELL VOLUME 87.4 fL (81.0-99.0); MEAN CORPUSCULAR HEMOGLOBIN 28.4 pg (27.0-31.0); MEAN CORPUSCULAR HGB CONC 32.4 g/dL (33.0-37.0); MEAN PLATELET VOLUME 7.2 fL (7.2-11.7); MONO # 0.6 K/uL (0.0-0.8); RED CELL DISTRIBUTION WIDTH 15.6 % (11.5-14.5); WHITE BLOOD COUNT 4.9 K/uL (4.8-10.8)
[2016-11-14] MEDS: (Novolin R) Insulin Human Regular 100 units/ml vial SC SCH ×4 (07:56→21:41)
[2016-11-14 08:16] LABS: THYROID STIMULATING HORMONE 2.67 mIU/L (0.46-4.68)
[2016-11-14 08:27] LABS: BILIRUBIN,TOTAL 0.9 mg/dL (0.2-1.3); PHOSPHOROUS 3.5 mg/dL (2.5-4.5); TOTAL PROTEIN 7.6 g/dL (6.3-8.3)
[2016-11-14 08:28] LABS: CALCIUM 8.7 mg/dl (8.6-10.4)
[2016-11-14] MEDS: Potassium Chloride 20 mEq ER Tab PO SCH (09:51)
[2016-11-14] MEDS ORDERED: Potassium Chloride 20 mEq ER Tab PO ONE ×2 (10:05→20:00)
--- NOTE | 2016-11-14 14:19 | CP.PCM.PN ---
<Vanna Virk - Last Filed: 11/14/16 20:20> Subjective - Date & Time of Evaluation Date of Evaluation: 11/14/16 Time of Evaluation: 10:00 - Subjective Subjective: Medicine Progress Notes: Patient was seen and examined at bedside. Patient denies chest pain, shortness of breath, palpitations, nausea or vomiting. Per son the patient does drink plenty of fluids at home. Objective - Vital Signs/Intake and Output Vital Signs (last 24 hours): Temp Pulse Resp BP Pulse Ox 97.9 F 83 20 104/71 100 11/14/16 07:10 11/14/16 07:10 11/14/16 07:10 11/14/16 09:52 11/14/16 07:10 Intake and Output: 11/14/16 11/14/16 06:59 18:59 Intake Total 600 Balance 600 - Medications Medications: Current Medications Albuterol (Ventolin Hfa 90 Mcg/Actuation (8 G)) 2 puff INH RQ6 PRN PRN Reason: Wheezing Allopurinol (Zyloprim) 300 mg PO DAILY [facility] Last Admin: 11/14/16 09:51 Dose: 300 mg Bupropion HCl (Wellbutrin) 75 mg PO BID [facility] Last Admin: 11/14/16 09:52 Dose: 75 mg Famotidine (Pepcid) 20 mg PO DAILY [facility] Last Admin: 11/14/16 09:51 Dose: 20 mg Furosemide (Lasix) 20 mg PO DAILY [facility] Last Admin: 11/14/16 09:52 Dose: 20 mg Gabapentin (Neurontin) 400 mg PO BID [facility] Last Admin: 11/14/16 09:51 Dose: 400 mg Potassium Chloride 40 meq/ (Sodium Chloride) 1,020 mls @ 150 mls/hr IV .Q6H48M [facility] Last Admin: 11/14/16 11:16 Dose: 150 mls/hr Insulin Human Regular (Novolin R) 0 unit SC ACHS [facility] PRN Reason: Protocol Last Admin: 11/14/16 12:15 Dose: Not Given Oxybutynin Chloride (Ditropan Tab) 5 mg PO DAILY [facility] Last Admin: 11/14/16 09:51 Dose: 5 mg Potassium Chloride (K-Dur 20 Meq Er Tab) 40 meq PO DAILY [facility] Last Admin: 09/01/17 09:51 Dose: 40 meq Rivaroxaban (Xarelto) 15 mg PO BID [facility] Last Admin: 11/14/16 10:36 Dose: 15 mg - Labs Labs: 11/14/16 07:05 11/14/16 07:05 - Constitutional Appears: Well, No Acute Distress - Head Exam Head Exam: ATRAUMATIC, NORMAL INSPECTION, NORMOCEPHALIC - Eye Exam Eye Exam: EOMI, Normal appearance, PERRL Pupil Exam: NORMAL ACCOMODATION - ENT Exam ENT Exam: Mucous Membranes Moist - Respiratory Exam Respiratory Exam: Clear to Ausculation Bilateral, NORMAL BREATHING PATTERN - Cardiovascular Exam Cardiovascular Exam: REGULAR RHYTHM, RRR, +S1, +S2 - GI/Abdominal Exam GI & Abdominal Exam: Soft, Normal Bowel Sounds. absent: Tenderness - Extremities Exam Extremities Exam: Normal Inspection, Tenderness (tenderness in the right pertibial ). absent: Pedal Edema - Neurological Exam Neurological Exam: Alert, Awake, Oriented x3 - Psychiatric Exam Psychiatric exam: Normal Affect, Normal Mood - Skin Skin Exam: Dry, Warm. absent: Normal Color (right pertibial s/p skin grafts) Assessment and Plan - Assessment and Plan (Free Text) Plan: 1. Hypokalemia K:3.0 KDur 40 meq NS @150cc/hr with 40 KCl recheck CMP admitted to telemetry 2. Pneumonia Pulm Consult: Dr. Diaz --> help appreciated Chest xray: persistent left lower lobe opacity may reflect consolidation and or effusion. Linear atelectasis, left mid lung zones. Started 11/14 Ceftriaxone and Azythromycin (Continue for 5 days total) 3. Lethargy secondary to COPD nasal canula albuterol prn 4. Diabetes ISS accuchecks 5. Depression continue wellbutrin 75mg po bid 6. Prophylactic Measures pepcid 20mg po daily xarelto 15mg po Case Discussed with Dr. Shreyas Virk PGY-1 <Asim Pritchett Jr. - Last Filed: 11/17/16 14:02> Objective - Vital Signs/Intake and Output Vital Signs (last 24 hours): Temp Pulse Resp BP Pulse Ox 98.2 F 73 20 101/95 H 100 11/17/16 07:30 11/17/16 07:30 11/17/16 07:30 11/17/16 10:04 11/17/16 07:30 Intake and Output: 11/17/16 11/17/16 06:59 18:59 Intake Total 950 Balance 950 - Medications Medications: Current Medications Albuterol (Ventolin Hfa 90 Mcg/Actuation (8 G)) 2 puff INH RQ6 PRN PRN Reason: Wheezing Allopurinol (Zyloprim) 300 mg PO DAILY [facility] Last Admin: 11/17/16 10:04 Dose: 300 mg Bupropion HCl (Wellbutrin) 75 mg PO BID [facility] Last Admin: 11/17/16 10:03 Dose: 75 mg Famotidine (Pepcid) 20 mg PO DAILY [facility] Last Admin: 11/17/16 10:04 Dose: 20 mg Furosemide (Lasix) 20 mg PO DAILY [facility] Last Admin: 11/17/16 10:04 Dose: 20 mg Gabapentin (Neurontin) 400 mg PO BID [facility] Last Admin: 11/17/16 10:03 Dose: 400 mg Potassium Chloride 40 meq/ (Sodium Chloride) 1,020 mls @ 150 mls/hr IV .Q6H48M [facility] Last Admin: 11/15/16 13:03 Dose: Not Given Azithromycin 500 mg/ Sodium (Chloride) 250 mls @ 250 mls/hr IVPB Q24H [facility] Last Admin: 11/16/16 21:20 Dose: 250 mls/hr Piperacillin Sod/Tazobactam Sod (Zosyn 2.25 Gm Iv Premix) 2.25 gm in 50 mls @ 100 mls/hr IVPB Q8H [facility] Last Admin: 11/17/16 11:22 Dose: 100 mls/hr Sodium Chloride (Sodium Chloride 0.9%) 1,000 mls @ 100 mls/hr IV .Q10H [facility] Last Admin: 11/17/16 02:05 Dose: 100 mls/hr Insulin Human Regular (Novolin R) 0 unit SC ACHS [facility] PRN Reason: Protocol Last Admin: 11/17/16 12:19 Dose: Not Given Oxybutynin Chloride (Ditropan Tab) 5 mg PO DAILY [facility] Last Admin: 11/17/16 10:03 Dose: 5 mg Potassium Chloride (K-Dur 20 Meq Er Tab) 40 meq PO DAILY [facility] Last Admin: 11/17/16 10:04 Dose: 40 meq Rivaroxaban (Xarelto) 15 mg PO BID [facility] Last Admin: 11/17/16 10:04 Dose: 15 mg - Labs Labs: 11/17/16 06:10 11/17/16 06:10 Attending/Attestation - Attestation I have personally seen and examined this patient.: Yes I have fully participated in the care of the patient.: Yes I have reviewed all pertinent clinical information, including history, physical exam and plan: Yes Notes (Text): 11/17/16 14:02 Agree with resident note and plan of care
[2016-11-14] MEDS ORDERED: cefTRIAXone IV 1 gm in Dextros 50 ML IVPB SCH (19:00)
[2016-11-14] MEDS: Azithromycin 500 MG in Sodium Chloride 0.9% 250 ML IVPB SCH (21:41)
[2016-11-15 06:28] LABS: BASO % 0.5 % (0.0-2.0); EOS # 0.1 K/uL (0.0-0.7); EOS % 2.6 % (0.0-4.0); HEMATOCRIT 30.6 % (34.0-47.0); LYMPH % 20.2 % (20.0-40.0); MEAN CELL VOLUME 87.8 fL (81.0-99.0); MEAN CORPUSCULAR HEMOGLOBIN 28.2 pg (27.0-31.0); MEAN CORPUSCULAR HGB CONC 32.1 g/dL (33.0-37.0); MONO # 0.6 K/uL (0.0-0.8); MONO % 11.3 % (0.0-10.0)
[2016-11-15 06:57] LABS: BILIRUBIN,TOTAL 0.4 mg/dL (0.2-1.3); CALCIUM 8.7 mg/dl (8.6-10.4); MAGNESIUM 1.4 mg/dL (1.6-2.3); TOTAL PROTEIN 6.5 g/dL (6.3-8.3)
[2016-11-15] MEDS: (Novolin R) Insulin Human Regular 100 units/ml vial SC SCH ×3 (07:13→18:39)
--- NOTE | 2016-11-15 08:02 | CARD ---
APPROVED REPORT EKG Measurement Heart [id number] [id number] <Conclusion> Normal sinus rhythm Left axis deviation Low voltage QRS Inferior infarct, age undetermined Possible Anterolateral infarct, age undetermined Prolonged QT Abnormal ECG
[2016-11-15] MEDS: Potassium Chloride 20 mEq ER Tab PO SCH (09:54)
--- NOTE | 2016-11-15 10:02 | CP.PCM.CON ---
History of Present Illness - History of Present Illness History of Present Illness: reason for consultation: possible pneumonia Patient is 61-year-old female with history of lung CA status post chemotherapy, COPD, hypertension who presented to emergency room complaining cough productive off dark phlegm for the past few weeks. Patient also complaining of weakness and has difficulty walking. Chest x-ray consistent with possible left effusion/ infiltrate. Patient denies fever chills, denies chest pain PMHx: Anemia, COPD, Depression, DM, Gastritis, HTN, HLD, Lung CA, Shingles (2014 ), PAD, disc herniation, PSurgHx: Right Great toe amputation, Right pretibial skin graft due "ulcers", Left hip "mass" removed (2013), Recent cervical spine surgery FMHx: Father- Lung CA, Mother - Breast CA, Heart disease Allergies: NKDA Social Hx: lives with daughter (Ronda). 2/3 pack per day tobacco for 40yrs ( quit 5 years ago), 1/2 pint of gin and 2 beers for 40yrs (Current rare ETOH use) , denies any illicit drug use. Review of Systems - Review of Systems All systems: reviewed and no additional remarkable complaints except (weakness, productive cough) Past Patient History - Past Medical History & Family History Past Medical History?: Yes - Past Social History Smoking Status: Former Smoker - CARDIAC Hx Hypercholesterolemia: Yes Hx Hypertension: Yes - PULMONARY Hx Chronic Obstructive Pulmonary Disease (COPD): Yes (on home O2) - NEUROLOGICAL Hx Neurological Disorder: No - HEENT Hx HEENT Problems: Yes (wears glasses) - RENAL Hx Chronic Kidney Disease: No - ENDOCRINE/METABOLIC Hx Diabetes Mellitus Type 2: Yes - HEMATOLOGICAL/ONCOLOGICAL Hx Anemia: Yes - INTEGUMENTARY Other/Comment: mass left hip/REMOVED FEB 2014 - MUSCULOSKELETAL/RHEUMATOLOGICAL Hx Falls: No - GASTROINTESTINAL Hx Gastritis: Yes - GENITOURINARY/GYNECOLOGICAL Hx Genitourinary Disorders: Yes Hx Incontinence: Yes (ON DITROPAN) - PSYCHIATRIC Hx Depression: Yes Hx Substance Use: No - SURGICAL HISTORY Hx Surgeries: Yes Hx Amputation: Yes (RT.FOOT 2 TOES) Hx Vascular Access Device: Yes (port-a-cath insertion RCW) Other/Comment: debridment of ulcer on right leg, rt hip sx - ANESTHESIA Hx Anesthesia: Yes Hx Anesthesia Reactions: No Hx Malignant Hyperthermia: No Meds Allergies/Adverse Reactions: Allergies Allergy/AdvReac Type Severity Reaction Status Date / Time No Known Allergies Allergy Verified 11/13/16 15:53 - Medications Medications: Current Medications Albuterol (Ventolin Hfa 90 Mcg/Actuation (8 G)) 2 puff INH RQ6 PRN PRN Reason: Wheezing Allopurinol (Zyloprim) 300 mg PO DAILY [facility] Last Admin: 11/15/16 09:53 Dose: 300 mg Bupropion HCl (Wellbutrin) 75 mg PO BID [facility] Last Admin: 11/15/16 09:54 Dose: 75 mg Famotidine (Pepcid) 20 mg PO DAILY [facility] Last Admin: 11/15/16 09:54 Dose: 20 mg Furosemide (Lasix) 20 mg PO DAILY [facility] Last Admin: 11/15/16 09:55 Dose: Not Given Gabapentin (Neurontin) 400 mg PO BID [facility] Last Admin: 11/15/16 09:54 Dose: 400 mg Potassium Chloride 40 meq/ (Sodium Chloride) 1,020 mls @ 150 mls/hr IV .Q6H48M [facility] Last Admin: 11/15/16 02:12 Dose: 150 mls/hr Ceftriaxone Sodium (Rocephin Iv 1 Gm Duplex) 50 mls @ 100 mls/hr IVPB Q24H [facility] Last Admin: 11/14/16 20:00 Dose: 100 mls/hr Azithromycin 500 mg/ Sodium (Chloride) 250 mls @ 250 mls/hr IVPB Q24H [facility] Last Admin: 11/14/16 21:41 Dose: 250 mls/hr Insulin Human Regular (Novolin R) 0 unit SC ACHS [facility] PRN Reason: Protocol Last Admin: 11/15/16 07:13 Dose: Not Given Oxybutynin Chloride (Ditropan Tab) 5 mg PO DAILY [facility] Last Admin: 11/15/16 09:54 Dose: 5 mg Potassium Chloride (K-Dur 20 Meq Er Tab) 40 meq PO DAILY [facility] Last Admin: 11/15/16 09:54 Dose: 40 meq Rivaroxaban (Xarelto) 15 mg PO BID [facility] Last Admin: 11/15/16 09:53 Dose: 15 mg Physical Exam - Head Exam Head Exam: ATRAUMATIC, NORMOCEPHALIC - ENT Exam ENT Exam: Mucous Membranes Moist - Neck Exam Neck exam: Positive for: Normal Inspection - Respiratory Exam Respiratory Exam: Decreased Breath Sounds - Cardiovascular Exam Cardiovascular Exam: REGULAR RHYTHM - GI/Abdominal Exam GI & Abdominal Exam: Normal Bowel Sounds, Soft - Extremities Exam Extremities exam: Positive for: normal inspection - Neurological Exam Neurological exam: Alert Results - Vital Signs Recent Vital Signs: Last Vital Signs Temp 97.6 F 11/15/16 08:05 Pulse 85 11/15/16 09:52 Resp 20 11/15/16 08:05 BP 96/67 L 11/15/16 09:55 Pulse Ox 100 11/15/16 08:05 - Labs Result Diagrams: 11/15/16 06:22 11/15/16 06:22 Labs: Laboratory Results - last 24 hr 11/14/16 11/14/16 11/15/16 15:55 20:56 06:22 WBC 5.0 RBC 3.49 L Hgb 9.8 L Hct 30.6 L MCV 87.8 MCH 28.2 MCHC 32.1 L RDW 16.0 H Plt Count 165 MPV 7.0 L Neut % (Auto) 65.4 Lymph % (Auto) 20.2 Cache % (Auto) 11.3 H Eos % (Auto) 2.6 Baso % (Auto) 0.5 Neut # 3.3 Lymph # 1.0 Cache # 0.6 Eos # 0.1 Baso # 0.0 Sodium Potassium Chloride Carbon Dioxide Anion Gap BUN Creatinine Est GFR ( Amer) Est GFR (Non-Af Amer) POC Glucose (mg/dL) 165 H 250 H Random Glucose Calcium Phosphorus Magnesium Total Bilirubin AST ALT Alkaline Phosphatase Total Protein Albumin Globulin Albumin/Globulin Ratio 11/15/16 11/15/16 06:22 06:24 WBC RBC Hgb Hct MCV MCH MCHC RDW Plt Count MPV Neut % (Auto) Lymph % (Auto) Cache % (Auto) Eos % (Auto) Baso % (Auto) Neut # Lymph # Cache # Eos # Baso # Sodium 142 Potassium 4.0 Chloride 100 Carbon Dioxide 34 H Anion Gap 12 BUN 47 H Creatinine 1.2 Est GFR ( Amer) 55 Est GFR (Non-Af Amer) 45 POC Glucose (mg/dL) 96 Random Glucose 89 Calcium 8.7 Phosphorus 3.0 Magnesium 1.4 L Total Bilirubin 0.4 AST 17 ALT 22 Alkaline Phosphatase 79 Total Protein 6.5 Albumin 3.3 L Globulin 3.2 Albumin/Globulin Ratio 1.0 Assessment & Plan (1) Pneumonia Status: Acute Comment: chest x-ray consistent with left lung infiltrate versus effusion. CAT scan of the chest. Pro calcitonin level. Switched to Zosyn. Followup culture and sensitivity (2) COPD (chronic obstructive pulmonary disease) Status: Chronic (3) History of lung cancer Status: Chronic
[2016-11-15] MEDS: Piperacill/Tazo 2.25gm in Dex 2.25 GM/50 ML BAG IVPB SCH ×2 (11:19→18:38)
--- NOTE | 2016-11-15 12:40 | CT ---
PROCEDURE: CT Chest without contrast HISTORY: h/o lung ca COMPARISON: Chest CT with contrast 08/22/2016. TECHNIQUE: Contiguous axial images were obtained through the chest without intravenous contrast enhancement. Sagittal and coronal reconstructions were performed. Radiation dose (DLP): 835 mGy-cm. This CT exam was performed using one or more of the following dose reduction techniques: Automated exposure control, adjustment of the mA and/or kV according to patient size, and/or use of iterative reconstruction technique. FINDINGS: LUNGS: Prior partial left pneumonectomy noted once again. The right lung is now hyperexpanded crossing over the midline to the left with limited leftward mediastinal shift due to prominent atelectasis of left lower lobe likely on the basis of left hilar adenopathy or mass encasing arm pressing lower lobe airways just distal to the left hilum. No right-sided infiltrate. Underlying pneumonia at the left lower lobe is not excluded with trace atelectasis identified in the right lower lobe base. Central airways appear clear no definitive right pulmonary mass. MEDIASTINUM: Unremarkable thoracic aorta. No aneurysm. Normal sized heart. Main pulmonary artery unremarkable. No vascular congestion. Leftward mediastinal shift as discussed above. No right hilar adenopathy. PLEURA: Trace left pleural effusion. None on the right. No pericardial effusion. No pneumothorax. BONES: No fracture. No destructive lesion. UPPER ABDOMEN: Cholelithiasis. OTHER FINDINGS: Right-sided life port catheter again seen terminating at the origin of the superior vena cava. IMPRESSION: Partial left pneumonectomy again noted. Prominent left lower lobe atelectasis likely on a postoperative basis due to probable left perihilar mass or lymphadenopathy as discussed above. There is now mild hyper inflation of the right lung extending across the midline with leftward mediastinal shift, both as a function of post atelectasis change. Significant atelectasis of the left lower lobe was seen previously as well. Underlying pneumonia is not excluded.
[2016-11-15 17:01] LABS: LEGIONELLA AG URINE NEGATIVE (NEGATIVE)
--- NOTE | 2016-11-15 19:38 | CP.PCM.PN ---
<Vanna Virk - Last Filed: 11/15/16 19:24> Subjective - Date & Time of Evaluation Date of Evaluation: 11/15/16 Time of Evaluation: 09:00 - Subjective Subjective: Medicine Progress Notes: Patient was seen and examined at bedside. Patient denies chest pain, shortness of breath, palpitations, nausea or vomiting. Patient states her legs still are tender bilaterally s/p her skin graft. Objective - Vital Signs/Intake and Output Vital Signs (last 24 hours): Temp Pulse Resp BP Pulse Ox 98.1 F 87 20 94/63 L 93 L 11/15/16 15:05 11/15/16 15:50 11/15/16 15:05 11/15/16 15:05 11/15/16 15:05 Intake and Output: 11/15/16 11/16/16 18:59 06:59 Intake Total 1400 Balance 1400 - Medications Medications: Current Medications Albuterol (Ventolin Hfa 90 Mcg/Actuation (8 G)) 2 puff INH RQ6 PRN PRN Reason: Wheezing Allopurinol (Zyloprim) 300 mg PO DAILY COUNTS INCLUDE 234 BEDS AT THE [facility] Last Admin: 11/15/16 09:53 Dose: 300 mg Bupropion HCl (Wellbutrin) 75 mg PO BID COUNTS INCLUDE 234 BEDS AT THE [facility] Last Admin: 11/15/16 18:39 Dose: 75 mg Famotidine (Pepcid) 20 mg PO DAILY COUNTS INCLUDE 234 BEDS AT THE [facility] Last Admin: 11/15/16 09:54 Dose: 20 mg Furosemide (Lasix) 20 mg PO DAILY COUNTS INCLUDE 234 BEDS AT THE [facility] Last Admin: 11/15/16 09:55 Dose: Not Given Gabapentin (Neurontin) 400 mg PO BID COUNTS INCLUDE 234 BEDS AT THE [facility] Last Admin: 11/15/16 18:39 Dose: 400 mg Potassium Chloride 40 meq/ (Sodium Chloride) 1,020 mls @ 150 mls/hr IV .Q6H48M COUNTS INCLUDE 234 BEDS AT THE [facility] Last Admin: 11/15/16 13:03 Dose: Not Given Azithromycin 500 mg/ Sodium (Chloride) 250 mls @ 250 mls/hr IVPB Q24H COUNTS INCLUDE 234 BEDS AT THE [facility] Last Admin: 11/14/16 21:41 Dose: 250 mls/hr Piperacillin Sod/Tazobactam Sod (Zosyn 2.25 Gm Iv Premix) 2.25 gm in 50 mls @ 100 mls/hr IVPB Q8H COUNTS INCLUDE 234 BEDS AT THE [facility] Last Admin: 09/02/17 18:38 Dose: 100 mls/hr Insulin Human Regular (Novolin R) 0 unit SC ACHS COUNTS INCLUDE 234 BEDS AT THE [facility] PRN Reason: Protocol Last Admin: 11/15/16 18:39 Dose: Not Given Oxybutynin Chloride (Ditropan Tab) 5 mg PO DAILY COUNTS INCLUDE 234 BEDS AT THE [facility] Last Admin: 11/15/16 09:54 Dose: 5 mg Potassium Chloride (K-Dur 20 Meq Er Tab) 40 meq PO DAILY COUNTS INCLUDE 234 BEDS AT THE [facility] Last Admin: 11/15/16 09:54 Dose: 40 meq Rivaroxaban (Xarelto) 15 mg PO BID COUNTS INCLUDE 234 BEDS AT THE [facility] Last Admin: 11/15/16 18:39 Dose: 15 mg - Labs Labs: 11/15/16 06:22 11/15/16 06:22 - Constitutional Appears: Well, No Acute Distress - Head Exam Head Exam: ATRAUMATIC, NORMAL INSPECTION, NORMOCEPHALIC - Eye Exam Eye Exam: EOMI, Normal appearance, PERRL Pupil Exam: NORMAL ACCOMODATION, PERRL - ENT Exam ENT Exam: Mucous Membranes Moist - Respiratory Exam Respiratory Exam: Clear to Ausculation Bilateral, NORMAL BREATHING PATTERN - Cardiovascular Exam Cardiovascular Exam: REGULAR RHYTHM, RRR, +S1, +S2 - GI/Abdominal Exam GI & Abdominal Exam: Soft, Normal Bowel Sounds. absent: Tenderness - Extremities Exam Extremities Exam: Tenderness (tenderness in the right pertibial ) - Neurological Exam Neurological Exam: Alert, Awake, Oriented x3 - Psychiatric Exam Psychiatric exam: Normal Affect, Normal Mood - Skin Skin Exam: Warm. absent: Normal Color (right pertibial s/p skin grafts) Assessment and Plan - Assessment and Plan (Free Text) Plan: 1. Hypokalemia - Resolved K:4.0 KDur 40 meq NS @150cc/hr with 40 KCl once completed will start patient on NS @100cc/hr admitted to telemetry 2. Pneumonia Pulm Consult: Dr. Diaz --> help appreciated Chest xray: persistent left lower lobe opacity may reflect consolidation and or effusion. Linear atelectasis, left mid lung zones. Started 11/14 Ceftriaxone and Azythromycin (Continue for 5 days total) Zosyn started per Dr. Diaz 11/15/16 f/u CT chest f/u calcitonin 3. Lethargy secondary to COPD nasal canula albuterol prn 4. Diabetes ISS accuchecks 5. Depression continue wellbutrin 75mg po bid 6. Prophylactic Measures pepcid 20mg po daily xarelto 15mg po Case Discussed with Dr. Shreyas Virk PGY-1 <Asim Pritchett Jr. - Last Filed: 11/17/16 14:06> Objective - Vital Signs/Intake and Output Vital Signs (last 24 hours): Temp Pulse Resp BP Pulse Ox 98.2 F 73 20 101/95 H 100 11/17/16 07:30 11/17/16 07:30 11/17/16 07:30 11/17/16 10:04 11/17/16 07:30 Intake and Output: 11/17/16 11/17/16 06:59 18:59 Intake Total 950 Balance 950 - Medications Medications: Current Medications Albuterol (Ventolin Hfa 90 Mcg/Actuation (8 G)) 2 puff INH RQ6 PRN PRN Reason: Wheezing Allopurinol (Zyloprim) 300 mg PO DAILY COUNTS INCLUDE 234 BEDS AT THE [facility] Last Admin: 11/17/16 10:04 Dose: 300 mg Bupropion HCl (Wellbutrin) 75 mg PO BID COUNTS INCLUDE 234 BEDS AT THE [facility] Last Admin: 11/17/16 10:03 Dose: 75 mg Famotidine (Pepcid) 20 mg PO DAILY COUNTS INCLUDE 234 BEDS AT [facility] Last Admin: 11/17/16 10:04 Dose: 20 mg Furosemide (Lasix) 20 mg PO DAILY COUNTS INCLUDE 234 BEDS AT [facility] Last Admin: 11/17/16 10:04 Dose: 20 mg Gabapentin (Neurontin) 400 mg PO BID COUNTS INCLUDE 234 BEDS AT [facility] Last Admin: 11/17/16 10:03 Dose: 400 mg Potassium Chloride 40 meq/ (Sodium Chloride) 1,020 mls @ 150 mls/hr IV .Q6H48M COUNTS INCLUDE 234 BEDS AT THE [facility] Last Admin: 11/15/16 13:03 Dose: Not Given Azithromycin 500 mg/ Sodium (Chloride) 250 mls @ 250 mls/hr IVPB Q24H COUNTS INCLUDE 234 BEDS AT THE [facility] Last Admin: 11/16/16 21:20 Dose: 250 mls/hr Piperacillin Sod/Tazobactam Sod (Zosyn 2.25 Gm Iv Premix) 2.25 gm in 50 mls @ 100 mls/hr IVPB Q8H COUNTS INCLUDE 234 BEDS AT THE [facility] Last Admin: 11/17/16 11:22 Dose: 100 mls/hr Sodium Chloride (Sodium Chloride 0.9%) 1,000 mls @ 100 mls/hr IV .Q10H COUNTS INCLUDE 234 BEDS AT THE [facility] Last Admin: 11/17/16 02:05 Dose: 100 mls/hr Insulin Human Regular (Novolin R) 0 unit SC ACHS COUNTS INCLUDE 234 BEDS AT THE [facility] PRN Reason: Protocol Last Admin: 11/17/16 12:19 Dose: Not Given Oxybutynin Chloride (Ditropan Tab) 5 mg PO DAILY COUNTS INCLUDE 234 BEDS AT THE [facility] Last Admin: 11/17/16 10:03 Dose: 5 mg Potassium Chloride (K-Dur 20 Meq Er Tab) 40 meq PO DAILY COUNTS INCLUDE 234 BEDS AT THE [facility] Last Admin: 11/17/16 10:04 Dose: 40 meq Rivaroxaban (Xarelto) 15 mg PO BID COUNTS INCLUDE 234 BEDS AT THE [facility] Last Admin: 11/17/16 10:04 Dose: 15 mg - Labs Labs: 11/17/16 06:10 11/17/16 06:10 Attending/Attestation - Attestation I have personally seen and examined this patient.: Yes I have fully participated in the care of the patient.: Yes I have reviewed all pertinent clinical information, including history, physical exam and plan: Yes Notes (Text): 11/17/16 14:06 Agree with resident note and plan of care
[2016-11-15] MEDS: Azithromycin 500 MG in Sodium Chloride 0.9% 250 ML IVPB SCH (20:45)
[2016-11-16] MEDS: Sodium Chloride 0.9% 1,000 ML IV SCH ×3 (00:16→20:17)
[2016-11-16] MEDS: Piperacill/Tazo 2.25gm in Dex 2.25 GM/50 ML BAG IVPB SCH ×3 (06:09→18:40)
--- NOTE | 2016-11-16 07:34 | CP.PCM.PN ---
<Vanna Virk - Last Filed: 11/16/16 14:00> Subjective - Date & Time of Evaluation Date of Evaluation: 11/16/16 Time of Evaluation: 08:00 - Subjective Subjective: Medicine Progress Notes: Patient was seen and examined at bedside. Patient denies chest pain, shortness of breath, palpitations, nausea or vomiting. Patient states her legs still are tender bilaterally s/p her skin graft. Objective - Vital Signs/Intake and Output Vital Signs (last 24 hours): Temp Pulse Resp BP Pulse Ox 98.6 F 93 H 20 90/61 L 100 11/15/16 23:05 11/16/16 04:00 11/15/16 23:05 11/15/16 23:05 11/15/16 23:05 Intake and Output: 11/16/16 11/16/16 06:59 18:59 Intake Total 950 Output Total 600 Balance 350 - Medications Medications: Current Medications Albuterol (Ventolin Hfa 90 Mcg/Actuation (8 G)) 2 puff INH RQ6 PRN PRN Reason: Wheezing Allopurinol (Zyloprim) 300 mg PO DAILY [facility] Last Admin: 11/15/16 09:53 Dose: 300 mg Bupropion HCl (Wellbutrin) 75 mg PO BID [facility] Last Admin: 11/15/16 18:39 Dose: 75 mg Famotidine (Pepcid) 20 mg PO DAILY [facility] Last Admin: 11/15/16 09:54 Dose: 20 mg Furosemide (Lasix) 20 mg PO DAILY [facility] Last Admin: 11/15/16 09:55 Dose: Not Given Gabapentin (Neurontin) 400 mg PO BID [facility] Last Admin: 11/15/16 18:39 Dose: 400 mg Potassium Chloride 40 meq/ (Sodium Chloride) 1,020 mls @ 150 mls/hr IV .Q6H48M [facility] Last Admin: 11/15/16 13:03 Dose: Not Given Azithromycin 500 mg/ Sodium (Chloride) 250 mls @ 250 mls/hr IVPB Q24H [facility] Last Admin: 11/15/16 20:45 Dose: 250 mls/hr Piperacillin Sod/Tazobactam Sod (Zosyn 2.25 Gm Iv Premix) 2.25 gm in 50 mls @ 100 mls/hr IVPB Q8H [facility] Last Admin: 11/16/16 06:09 Dose: 100 mls/hr Sodium Chloride (Sodium Chloride 0.9%) 1,000 mls @ 100 mls/hr IV .Q10H [facility] Last Admin: 11/16/16 00:16 Dose: 100 mls/hr Insulin Human Regular (Novolin R) 0 unit SC ACHS [facility] PRN Reason: Protocol Last Admin: 11/15/16 18:39 Dose: Not Given Oxybutynin Chloride (Ditropan Tab) 5 mg PO DAILY [facility] Last Admin: 11/15/16 09:54 Dose: 5 mg Potassium Chloride (K-Dur 20 Meq Er Tab) 40 meq PO DAILY [facility] Last Admin: 11/15/16 09:54 Dose: 40 meq Rivaroxaban (Xarelto) 15 mg PO BID [facility] Last Admin: 11/15/16 18:39 Dose: 15 mg - Labs Labs: 11/15/16 06:22 11/15/16 06:22 - Constitutional Appears: No Acute Distress - Head Exam Head Exam: ATRAUMATIC, NORMAL INSPECTION, NORMOCEPHALIC - Eye Exam Eye Exam: EOMI, Normal appearance, PERRL Pupil Exam: NORMAL ACCOMODATION - ENT Exam ENT Exam: Mucous Membranes Moist - Respiratory Exam Respiratory Exam: Clear to Ausculation Bilateral, NORMAL BREATHING PATTERN - Cardiovascular Exam Cardiovascular Exam: REGULAR RHYTHM, RRR, +S1, +S2 - GI/Abdominal Exam GI & Abdominal Exam: Soft, Normal Bowel Sounds. absent: Tenderness - Extremities Exam Extremities Exam: Tenderness (tenderness in the right pertibial ) - Neurological Exam Neurological Exam: Alert, Awake, Oriented x3 - Psychiatric Exam Psychiatric exam: Normal Affect - Skin Skin Exam: Warm. absent: Normal Color (right pertibial s/p skin grafts) Assessment and Plan - Assessment and Plan (Free Text) Plan: 1. Hypokalemia - Resolved K:4.3 KDur 40 meq NS @10cc/hr admitted to telemetry 2. Pneumonia Pulm Consult: Dr. Diaz --> help appreciated Chest xray: persistent left lower lobe opacity may reflect consolidation and or effusion. Linear atelectasis, left mid lung zones. Started 11/14 Ceftriaxone and Azythromycin (Continue for 5 days total) Zosyn started per Dr. Diaz 11/15/16 Mycoplasma Pneumonia Positive Legionella pneumophila Ag: negative CT chest: Partial pneumonectomy noted again. Prominent left lower lobe atelectasis likely on a postoperative basis bhakti to probable left perihilar mass or lymphadenopthy. Procalcitonin: <0.05 3. Lethargy secondary to COPD nasal canula albuterol prn 4. Diabetes ISS accuchecks 5. Depression continue wellbutrin 75mg po bid 6. Prophylactic Measures pepcid 20mg po daily xarelto 15mg po Case Discussed with Dr. Shreyas Virk PGY-1 <Asim Pritchett Jr. - Last Filed: 11/17/16 14:12> Objective - Vital Signs/Intake and Output Vital Signs (last 24 hours): Temp Pulse Resp BP Pulse Ox 98.2 F 73 20 101/95 H 100 11/17/16 07:30 11/17/16 07:30 11/17/16 07:30 11/17/16 10:04 11/17/16 07:30 Intake and Output: 11/17/16 11/17/16 06:59 18:59 Intake Total 950 Balance 950 - Medications Medications: Current Medications Albuterol (Ventolin Hfa 90 Mcg/Actuation (8 G)) 2 puff INH RQ6 PRN PRN Reason: Wheezing Allopurinol (Zyloprim) 300 mg PO DAILY [facility] Last Admin: 11/17/16 10:04 Dose: 300 mg Bupropion HCl (Wellbutrin) 75 mg PO BID [facility] Last Admin: 11/17/16 10:03 Dose: 75 mg Famotidine (Pepcid) 20 mg PO DAILY [facility] Last Admin: 11/17/16 10:04 Dose: 20 mg Furosemide (Lasix) 20 mg PO DAILY [facility] Last Admin: 11/17/16 10:04 Dose: 20 mg Gabapentin (Neurontin) 400 mg PO BID [facility] Last Admin: 11/17/16 10:03 Dose: 400 mg Potassium Chloride 40 meq/ (Sodium Chloride) 1,020 mls @ 150 mls/hr IV .Q6H48M [facility] Last Admin: 11/15/16 13:03 Dose: Not Given Azithromycin 500 mg/ Sodium (Chloride) 250 mls @ 250 mls/hr IVPB Q24H [facility] Last Admin: 11/16/16 21:20 Dose: 250 mls/hr Piperacillin Sod/Tazobactam Sod (Zosyn 2.25 Gm Iv Premix) 2.25 gm in 50 mls @ 100 mls/hr IVPB Q8H [facility] Last Admin: 11/17/16 11:22 Dose: 100 mls/hr Sodium Chloride (Sodium Chloride 0.9%) 1,000 mls @ 100 mls/hr IV .Q10H [facility] Last Admin: 11/17/16 02:05 Dose: 100 mls/hr Insulin Human Regular (Novolin R) 0 unit SC ACHS [facility] PRN Reason: Protocol Last Admin: 11/17/16 12:19 Dose: Not Given Oxybutynin Chloride (Ditropan Tab) 5 mg PO DAILY [facility] Last Admin: 11/17/16 10:03 Dose: 5 mg Potassium Chloride (K-Dur 20 Meq Er Tab) 40 meq PO DAILY [facility] Last Admin: 11/17/16 10:04 Dose: 40 meq Rivaroxaban (Xarelto) 15 mg PO BID [facility] Last Admin: 11/17/16 10:04 Dose: 15 mg - Labs Labs: 11/17/16 06:10 11/17/16 06:10 Attending/Attestation - Attestation I have personally seen and examined this patient.: Yes I have fully participated in the care of the patient.: Yes I have reviewed all pertinent clinical information, including history, physical exam and plan: Yes Notes (Text): 11/17/16 14:11 Agree with resident note and plan of care
[2016-11-16] MEDS: (Novolin R) Insulin Human Regular 100 units/ml vial SC SCH ×4 (08:13→21:16)
[2016-11-16 08:27] LABS: BASO % 0.8 % (0.0-2.0); EOS # 0.2 K/uL (0.0-0.7); EOS % 4.2 % (0.0-4.0); HEMATOCRIT 31.4 % (34.0-47.0); LYMPH # 0.8 K/uL (1.0-4.3); LYMPH % 20.4 % (20.0-40.0); MEAN CELL VOLUME 87.8 fL (81.0-99.0); MEAN CORPUSCULAR HEMOGLOBIN 28.2 pg (27.0-31.0); MEAN CORPUSCULAR HGB CONC 32.1 g/dL (33.0-37.0); MONO # 0.4 K/uL (0.0-0.8); MONO % 10.8 % (0.0-10.0); RED CELL DISTRIBUTION WIDTH 15.9 % (11.5-14.5); WHITE BLOOD COUNT 4.1 K/uL (4.8-10.8)
[2016-11-16 08:52] LABS: ALB/GLOB RATIO 0.9 (1.0-2.1); BILIRUBIN,TOTAL 0.5 mg/dL (0.2-1.3); CALCIUM 9.2 mg/dl (8.6-10.4); MAGNESIUM 1.4 mg/dL (1.6-2.3); PHOSPHOROUS 3.4 mg/dL (2.5-4.5); POTASSIUM 4.3 mmol/L (3.6-5.2); TOTAL PROTEIN 6.8 g/dL (6.3-8.3)
[2016-11-16] MEDS: Potassium Chloride 20 mEq ER Tab PO SCH (10:23)
[2016-11-16] MEDS: Azithromycin 500 MG in Sodium Chloride 0.9% 250 ML IVPB SCH (21:20)
[2016-11-17] MEDS: Sodium Chloride 0.9% 1,000 ML IV SCH ×2 (02:05→15:30)
[2016-11-17] MEDS: Piperacill/Tazo 2.25gm in Dex 2.25 GM/50 ML BAG IVPB SCH ×3 (02:05→18:11)
[2016-11-17 06:18] LABS: BASO % 0.7 % (0.0-2.0); EOS # 0.2 K/uL (0.0-0.7); EOS % 4.2 % (0.0-4.0); LYMPH % 19.3 % (20.0-40.0); MEAN CELL VOLUME 88.1 fL (81.0-99.0); MEAN CORPUSCULAR HEMOGLOBIN 28.4 pg (27.0-31.0); MEAN CORPUSCULAR HGB CONC 32.3 g/dL (33.0-37.0); MONO # 0.5 K/uL (0.0-0.8); MONO % 9.9 % (0.0-10.0); NRBC % 0.1 % (0.0-2.0); RED CELL DISTRIBUTION WIDTH 15.7 % (11.5-14.5)
[2016-11-17 06:39] LABS: ALB/GLOB RATIO 0.8 (1.0-2.1); BILIRUBIN,TOTAL 0.4 mg/dL (0.2-1.3); CALCIUM 8.7 mg/dl (8.6-10.4); MAGNESIUM 1.3 mg/dL (1.6-2.3); PHOSPHOROUS 3.8 mg/dL (2.5-4.5); POTASSIUM 3.8 mmol/L (3.6-5.2); TOTAL PROTEIN 6.9 g/dL (6.3-8.3)
[2016-11-17] MEDS: (Novolin R) Insulin Human Regular 100 units/ml vial SC SCH ×4 (07:43→21:52)
[2016-11-17] MEDS: Potassium Chloride 20 mEq ER Tab PO SCH (10:04)
--- NOTE | 2016-11-17 11:37 | CP.PCM.PN ---
<Patricia Iyer - Last Filed: 11/17/16 14:09> Subjective - Date & Time of Evaluation Date of Evaluation: 11/17/16 Time of Evaluation: 07:30 - Subjective Subjective: PGY1- Medicine Note- Dr. Pritchett's Service Patient seen and examined at bedside and in no acute distress. Patient is lethargic. Patient had two loose bowel movements this morning. Patient has b/l leg tenderness. Patient denies shortness of breath, chest pain, abdominal pain, n/v. Objective - Vital Signs/Intake and Output Vital Signs (last 24 hours): Temp Pulse Resp BP Pulse Ox 98.2 F 73 20 101/95 H 100 11/17/16 07:30 11/17/16 07:30 11/17/16 07:30 11/17/16 10:04 11/17/16 07:30 Intake and Output: 11/17/16 11/17/16 06:59 18:59 Intake Total 950 Balance 950 - Medications Medications: Current Medications Albuterol (Ventolin Hfa 90 Mcg/Actuation (8 G)) 2 puff INH RQ6 PRN PRN Reason: Wheezing Allopurinol (Zyloprim) 300 mg PO DAILY [facility] Last Admin: 11/17/16 10:04 Dose: 300 mg Bupropion HCl (Wellbutrin) 75 mg PO BID [facility] Last Admin: 11/17/16 10:03 Dose: 75 mg Famotidine (Pepcid) 20 mg PO DAILY [facility] Last Admin: 11/17/16 10:04 Dose: 20 mg Furosemide (Lasix) 20 mg PO DAILY [facility] Last Admin: 11/17/16 10:04 Dose: 20 mg Gabapentin (Neurontin) 400 mg PO BID [facility] Last Admin: 11/17/16 10:03 Dose: 400 mg Potassium Chloride 40 meq/ (Sodium Chloride) 1,020 mls @ 150 mls/hr IV .Q6H48M [facility] Last Admin: 11/15/16 13:03 Dose: Not Given Azithromycin 500 mg/ Sodium (Chloride) 250 mls @ 250 mls/hr IVPB Q24H [facility] Last Admin: 11/16/16 21:20 Dose: 250 mls/hr Piperacillin Sod/Tazobactam Sod (Zosyn 2.25 Gm Iv Premix) 2.25 gm in 50 mls @ 100 mls/hr IVPB Q8H [facility] Last Admin: 11/17/16 02:05 Dose: 100 mls/hr Sodium Chloride (Sodium Chloride 0.9%) 1,000 mls @ 100 mls/hr IV .Q10H [facility] Last Admin: 11/17/16 02:05 Dose: 100 mls/hr Insulin Human Regular (Novolin R) 0 unit SC ACHS [facility] PRN Reason: Protocol Last Admin: 11/17/16 07:43 Dose: Not Given Oxybutynin Chloride (Ditropan Tab) 5 mg PO DAILY [facility] Last Admin: 11/17/16 10:03 Dose: 5 mg Potassium Chloride (K-Dur 20 Meq Er Tab) 40 meq PO DAILY [facility] Last Admin: 11/17/16 10:04 Dose: 40 meq Rivaroxaban (Xarelto) 15 mg PO BID [facility] Last Admin: 11/17/16 10:04 Dose: 15 mg - Labs Labs: 11/17/16 06:10 11/17/16 06:10 - Constitutional Appears: Non-toxic, No Acute Distress - Head Exam Head Exam: ATRAUMATIC, NORMAL INSPECTION, NORMOCEPHALIC - Eye Exam Eye Exam: EOMI, Normal appearance - ENT Exam ENT Exam: Mucous Membranes Moist - Neck Exam Neck Exam: Full ROM. absent: Tenderness - Respiratory Exam Respiratory Exam: Wheezes, NORMAL BREATHING PATTERN - Cardiovascular Exam Cardiovascular Exam: REGULAR RHYTHM, RRR. absent: Gallop, Rubs, Murmur - GI/Abdominal Exam GI & Abdominal Exam: Soft, Normal Bowel Sounds - Extremities Exam Extremities Exam: Tenderness - Neurological Exam Neurological Exam: Alert, Awake, Oriented x3 - Psychiatric Exam Psychiatric exam: Normal Affect - Skin Skin Exam: Warm. absent: Normal Color Additional comments: right pretibial s/p skin grafts Assessment and Plan - Assessment and Plan (Free Text) Assessment: 1. Hypokalemia - Resolved K:3.8 on 11/17 KDur 40 meq NS @10cc/hr admitted to telemetry 2. Pneumonia Pulm Consult: Dr. Diaz --> help appreciated Chest xray: persistent left lower lobe opacity may reflect consolidation and or effusion. Linear atelectasis, left mid lung zones. Started 11/14 Ceftriaxone and Azythromycin (Continue for 5 days total) Zosyn started per Dr. Diaz 9/2/17 Mycoplasma Pneumonia Positive Legionella pneumophila Ag: negative CT chest: Partial pneumonectomy noted again. Prominent left lower lobe atelectasis likely on a postoperative basis bhakti to probable left perihilar mass or lymphadenopthy. Procalcitonin: <0.05 3. Lethargy secondary to COPD nasal canula albuterol prn 4. Diabetes ISS accuchecks 5. Depression continue wellbutrin 75mg po bid 6. Prophylactic Measures pepcid 20mg po daily xarelto 15mg po <Asim Pritchett Jr. - Last Filed: 11/22/16 10:36> Objective - Vital Signs/Intake and Output Vital Signs (last 24 hours): Temp Pulse Resp BP Pulse Ox 98.1 F 79 18 97/66 L 99 11/19/16 15:30 11/19/16 15:30 11/19/16 15:30 11/19/16 15:30 11/19/16 15:30 - Labs Labs: 11/19/16 10:43 11/19/16 10:43 Attending/Attestation - Attestation I have personally seen and examined this patient.: Yes I have fully participated in the care of the patient.: Yes I have reviewed all pertinent clinical information, including history, physical exam and plan: Yes Notes (Text): 11/22/16 10:35 Agree with resident note and plan of care
[2016-11-17] MEDS: Azithromycin 500 MG in Sodium Chloride 0.9% 250 ML IVPB SCH (21:53)
[2016-11-18] MEDS: Piperacill/Tazo 2.25gm in Dex 2.25 GM/50 ML BAG IVPB SCH ×3 (01:39→18:30)
[2016-11-18] MEDS: Sodium Chloride 0.9% 1,000 ML IV SCH ×3 (05:08→21:33)
[2016-11-18 07:45] LABS: EOS # 0.2 K/uL (0.0-0.7); EOS % 4.7 % (0.0-4.0); HEMATOCRIT 30.9 % (34.0-47.0); LYMPH # 0.9 K/uL (1.0-4.3); LYMPH % 20.3 % (20.0-40.0); MEAN CELL VOLUME 87.2 fL (81.0-99.0); MEAN CORPUSCULAR HGB CONC 32.1 g/dL (33.0-37.0); MEAN PLATELET VOLUME 7.1 fL (7.2-11.7); MONO # 0.5 K/uL (0.0-0.8); MONO % 10.5 % (0.0-10.0); NRBC % 0.1 % (0.0-2.0); RED CELL DISTRIBUTION WIDTH 15.6 % (11.5-14.5); WHITE BLOOD COUNT 4.4 K/uL (4.8-10.8)
[2016-11-18 08:05] LABS: POTASSIUM 3.9 mmol/L (3.6-5.2)
[2016-11-18 08:07] LABS: ALB/GLOB RATIO 0.9 (1.0-2.1); BILIRUBIN,TOTAL 0.5 mg/dL (0.2-1.3); TOTAL PROTEIN 6.7 g/dL (6.3-8.3)
[2016-11-18 08:08] LABS: CALCIUM 8.4 mg/dl (8.6-10.4); MAGNESIUM 1.2 mg/dL (1.6-2.3); PHOSPHOROUS 3.7 mg/dL (2.5-4.5)
[2016-11-18] MEDS: (Novolin R) Insulin Human Regular 100 units/ml vial SC SCH ×4 (09:07→21:32)
--- NOTE | 2016-11-18 09:09 | CP.PCM.PN ---
<Patricia Iyre - Last Filed: 11/18/16 10:22> Subjective - Date & Time of Evaluation Date of Evaluation: 11/18/16 Time of Evaluation: 07:00 - Subjective Subjective: PGY1- Medicine Note- Dr. Pritchett's Service Patient seen and examined at bedside and in no acute distress. Patient sitting up in bed eating breakfast. Patient slightly more awake today, still lethargic. Patient complains of left sided raw skin wound near her elbow. Patient denies shortness of breath, chest pain, abdominal pain, n/v, c/d. Objective - Vital Signs/Intake and Output Vital Signs (last 24 hours): Temp Pulse Resp BP Pulse Ox 97.8 F 65 20 114/65 95 11/18/16 07:15 11/18/16 07:15 11/18/16 07:15 11/18/16 07:15 11/18/16 07:15 Intake and Output: 11/18/16 11/18/16 06:59 18:59 Intake Total 1000 Output Total 401 Balance 599 - Medications Medications: Current Medications Albuterol (Ventolin Hfa 90 Mcg/Actuation (8 G)) 2 puff INH RQ6 PRN PRN Reason: Wheezing Allopurinol (Zyloprim) 300 mg PO DAILY [facility] Last Admin: 11/17/16 10:04 Dose: 300 mg Bacitracin (Bacitracin) 0 gm TOP DAILY [facility] Bupropion HCl (Wellbutrin) 75 mg PO BID [facility] Last Admin: 11/17/16 18:12 Dose: 75 mg Famotidine (Pepcid) 20 mg PO DAILY [facility] Last Admin: 11/17/16 10:04 Dose: 20 mg Furosemide (Lasix) 20 mg PO DAILY [facility] Last Admin: 11/17/16 10:04 Dose: 20 mg Gabapentin (Neurontin) 400 mg PO BID [facility] Last Admin: 11/17/16 18:12 Dose: 400 mg Potassium Chloride 40 meq/ (Sodium Chloride) 1,020 mls @ 150 mls/hr IV .Q6H48M [facility] Last Admin: 11/15/16 13:03 Dose: Not Given Azithromycin 500 mg/ Sodium (Chloride) 250 mls @ 250 mls/hr IVPB Q24H [facility] Last Admin: 11/17/16 21:53 Dose: 250 mls/hr Piperacillin Sod/Tazobactam Sod (Zosyn 2.25 Gm Iv Premix) 2.25 gm in 50 mls @ 100 mls/hr IVPB Q8H [facility] Last Admin: 11/18/16 01:39 Dose: 100 mls/hr Sodium Chloride (Sodium Chloride 0.9%) 1,000 mls @ 100 mls/hr IV .Q10H [facility] Last Admin: 11/18/16 05:08 Dose: 100 mls/hr Insulin Human Regular (Novolin R) 0 unit SC ACHS [facility] PRN Reason: Protocol Last Admin: 11/17/16 21:52 Dose: Not Given Oxybutynin Chloride (Ditropan Tab) 5 mg PO DAILY [facility] Last Admin: 11/17/16 10:03 Dose: 5 mg Potassium Chloride (K-Dur 20 Meq Er Tab) 40 meq PO DAILY [facility] Last Admin: 11/17/16 10:04 Dose: 40 meq Rivaroxaban (Xarelto) 15 mg PO BID [facility] Last Admin: 11/17/16 18:12 Dose: 15 mg - Labs Labs: 11/18/16 07:24 11/18/16 07:24 - Constitutional Appears: Non-toxic, No Acute Distress - Head Exam Head Exam: ATRAUMATIC, NORMAL INSPECTION, NORMOCEPHALIC - Eye Exam Eye Exam: EOMI, Normal appearance - ENT Exam ENT Exam: Mucous Membranes Moist - Neck Exam Neck Exam: Full ROM - Respiratory Exam Respiratory Exam: Clear to Ausculation Bilateral, NORMAL BREATHING PATTERN. absent: Rales, Rhonchi, Wheezes, Respiratory Distress, Stridor - Cardiovascular Exam Cardiovascular Exam: REGULAR RHYTHM, RRR. absent: Gallop, Rubs, Murmur - GI/Abdominal Exam GI & Abdominal Exam: Soft, Normal Bowel Sounds. absent: Tenderness - Extremities Exam Extremities Exam: absent: Pedal Edema Additional comments: left knee tenderness - Neurological Exam Neurological Exam: Alert, Awake, Oriented x3 - Psychiatric Exam Psychiatric exam: Flat Affect, Normal Affect - Skin Skin Exam: Intact, Warm Additional comments: b/l lower leg skin color changes Assessment and Plan - Assessment and Plan (Free Text) Assessment: 1. Hypokalemia - Resolved K:3.9 on 11/18 KDur 40 meq daily NS @100cc/hr 2. Hypomagnesemia Ma.2 MagOx 400mg given monitor 3. Pneumonia Pulm Consult: Dr. Diaz --> help appreciated Chest xray: persistent left lower lobe opacity may reflect consolidation and or effusion. Linear atelectasis, left mid lung zones. Started 11/14 Ceftriaxone and Azythromycin (Continue for 5 days total) Zosyn started per Dr. Diaz 11/15/16 Mycoplasma Pneumonia Positive Legionella pneumophila Ag: negative CT chest: Partial pneumonectomy noted again. Prominent left lower lobe atelectasis likely on a postoperative basis bhakti to probable left perihilar mass or lymphadenopthy. Procalcitonin: <0.05 4. Lethargy secondary to COPD nasal canula albuterol prn 5. Diabetes ISS accuchecks 6. Depression continue wellbutrin 75mg po bid 7. Prophylactic Measures pepcid 20mg po daily xarelto 15mg po <Asim Pritchett Jr. - Last Filed: 11/22/16 10:37> Objective - Vital Signs/Intake and Output Vital Signs (last 24 hours): Temp Pulse Resp BP Pulse Ox 98.1 F 79 18 97/66 L 99 11/19/16 15:30 11/19/16 15:30 11/19/16 15:30 11/19/16 15:30 11/19/16 15:30 - Labs Labs: 11/19/16 10:43 11/19/16 10:43 Attending/Attestation - Attestation I have personally seen and examined this patient.: Yes I have fully participated in the care of the patient.: Yes I have reviewed all pertinent clinical information, including history, physical exam and plan: Yes Notes (Text): 11/22/16 10:37 Agree with resident note and plan of care
[2016-11-18] MEDS ORDERED: Magnesium Oxide 400 mg Tab UD PO ONE (10:22)
[2016-11-18] MEDS: Potassium Chloride 20 mEq ER Tab PO SCH (10:30)
[2016-11-18] MEDS: Bacitracin Ointment 30 GM TUBE TOP SCH (10:39)
--- NOTE | 2016-11-18 15:40 | CP.PCM.PN ---
Subjective - Date & Time of Evaluation Date of Evaluation: 11/18/16 Time of Evaluation: 11:00 - Subjective Subjective: Patient seen and examined. Lying comfortably in no acute distress Denies any shortness of breath Afebrile CAT scan of the chest noted Being treated for pneumonia Objective - Vital Signs/Intake and Output Vital Signs (last 24 hours): Temp Pulse Resp BP Pulse Ox 97.8 F 77 20 118/69 95 11/18/16 07:15 11/18/16 09:47 11/18/16 07:15 11/18/16 10:30 11/18/16 07:15 Intake and Output: 11/18/16 11/18/16 06:59 18:59 Intake Total 1000 Output Total 401 Balance 599 - Medications Medications: Current Medications Albuterol (Ventolin Hfa 90 Mcg/Actuation (8 G)) 2 puff INH RQ6 PRN PRN Reason: Wheezing Allopurinol (Zyloprim) 300 mg PO DAILY [facility] Last Admin: 11/18/16 10:30 Dose: 300 mg Bacitracin (Bacitracin) 0 gm TOP DAILY [facility] Last Admin: 11/18/16 10:39 Dose: 1 applic Bupropion HCl (Wellbutrin) 75 mg PO BID [facility] Last Admin: 11/18/16 10:30 Dose: 75 mg Famotidine (Pepcid) 20 mg PO DAILY [facility] Last Admin: 11/18/16 10:30 Dose: 20 mg Furosemide (Lasix) 20 mg PO DAILY [facility] Last Admin: 11/18/16 10:30 Dose: 20 mg Gabapentin (Neurontin) 400 mg PO BID [facility] Last Admin: 11/18/16 10:30 Dose: 400 mg Potassium Chloride 40 meq/ (Sodium Chloride) 1,020 mls @ 150 mls/hr IV .Q6H48M [facility] Last Admin: 11/15/16 13:03 Dose: Not Given Azithromycin 500 mg/ Sodium (Chloride) 250 mls @ 250 mls/hr IVPB Q24H [facility] Last Admin: 11/17/16 21:53 Dose: 250 mls/hr Piperacillin Sod/Tazobactam Sod (Zosyn 2.25 Gm Iv Premix) 2.25 gm in 50 mls @ 100 mls/hr IVPB Q8H [facility] Last Admin: 11/18/16 10:31 Dose: 100 mls/hr Sodium Chloride (Sodium Chloride 0.9%) 1,000 mls @ 100 mls/hr IV .Q10H [facility] Last Admin: 11/18/16 05:08 Dose: 100 mls/hr Insulin Human Regular (Novolin R) 0 unit SC ACHS [facility] PRN Reason: Protocol Last Admin: 11/18/16 12:30 Dose: 2 unit Oxybutynin Chloride (Ditropan Tab) 5 mg PO DAILY [facility] Last Admin: 11/18/16 10:31 Dose: 5 mg Potassium Chloride (K-Dur 20 Meq Er Tab) 40 meq PO DAILY [facility] Last Admin: 11/18/16 10:30 Dose: 40 meq Rivaroxaban (Xarelto) 15 mg PO BID [facility] Last Admin: 11/18/16 10:31 Dose: 15 mg - Labs Labs: 11/18/16 07:24 11/18/16 07:24 - Head Exam Head Exam: ATRAUMATIC, NORMOCEPHALIC - Eye Exam Eye Exam: Normal appearance - ENT Exam ENT Exam: Mucous Membranes Moist - Neck Exam Neck Exam: Normal Inspection - Respiratory Exam Respiratory Exam: Decreased Breath Sounds - Cardiovascular Exam Cardiovascular Exam: REGULAR RHYTHM - GI/Abdominal Exam GI & Abdominal Exam: Soft, Normal Bowel Sounds Assessment and Plan (1) Pneumonia Assessment & Plan: Unlikely pneumonia with normal pro calcitonin level CAT scan of the chest consistent with pneumonectomy Continue treatment for COPD Status: Acute (2) COPD (chronic obstructive pulmonary disease) Status: Chronic (3) History of lung cancer Status: Chronic
[2016-11-18] MEDS: Azithromycin 500 MG in Sodium Chloride 0.9% 250 ML IVPB SCH (21:27)
[2016-11-19] MEDS: Piperacill/Tazo 2.25gm in Dex 2.25 GM/50 ML BAG IVPB SCH ×2 (01:30→10:32)
[2016-11-19] MEDS: Sodium Chloride 0.9% 1,000 ML IV SCH (05:04)
[2016-11-19] MEDS: (Novolin R) Insulin Human Regular 100 units/ml vial SC SCH ×3 (08:15→17:56)
[2016-11-19 08:17] VITALS: RESP 18
[2016-11-19] MEDS: Potassium Chloride 20 mEq ER Tab PO SCH (10:34)
[2016-11-19] MEDS: Bacitracin Ointment 30 GM TUBE TOP SCH (10:44)
[2016-11-19 10:51] LABS: BASO % 0.5 % (0.0-2.0); EOS # 0.2 K/uL (0.0-0.7); EOS % 3.7 % (0.0-4.0); HEMATOCRIT 30.5 % (34.0-47.0); LYMPH # 0.9 K/uL (1.0-4.3); LYMPH % 16.1 % (20.0-40.0); MEAN CELL VOLUME 87.4 fL (81.0-99.0); MEAN CORPUSCULAR HEMOGLOBIN 28.2 pg (27.0-31.0); MEAN CORPUSCULAR HGB CONC 32.3 g/dL (33.0-37.0); MEAN PLATELET VOLUME 7.1 fL (7.2-11.7); MONO # 0.4 K/uL (0.0-0.8); MONO % 8.4 % (0.0-10.0); RED CELL DISTRIBUTION WIDTH 15.6 % (11.5-14.5); WHITE BLOOD COUNT 5.4 K/uL (4.8-10.8)
[2016-11-19 11:17] LABS: ALB/GLOB RATIO 0.8 (1.0-2.1); ALKALINE PHOSPHATASE 76 U/L (38-126); ALT/SGPT 23 U/L (9-52); AST/SGOT 21 U/L (14-36); BILIRUBIN,TOTAL 0.3 mg/dL (0.2-1.3); BLOOD UREA NITROGEN 15 mg/dL (7-17); CALCIUM 8.9 mg/dl (8.6-10.4); CARBON DIOXIDE 35 mmol/L (22-30); CHLORIDE 99 mmol/L (98-107); GFR AFRICAN-AMERICAN > 60; GLUCOSE,RANDOM 132 mg/dL (65-105); MAGNESIUM 1.4 mg/dL (1.6-2.3); PHOSPHOROUS 3.3 mg/dL (2.5-4.5); POTASSIUM 4.2 mmol/L (3.6-5.2); SODIUM 142 mmol/L (132-148); TOTAL PROTEIN 6.7 g/dL (6.3-8.3)
[2016-11-19 15:37] VITALS: BP 97/66; PULSE 79; TEMP 98.1; O2SAT 99
--- NOTE | 2016-11-19 16:12 | CP.PCM.PN ---
Subjective - Date & Time of Evaluation Date of Evaluation: 11/19/16 Time of Evaluation: 11:00 - Subjective Subjective: Patient seen and examined. Lying comfortably in no acute distress Denies fever or chills, denies chest pain Stable from pulmonary standpoint Continue nebulizer treatment Objective - Vital Signs/Intake and Output Vital Signs (last 24 hours): Temp Pulse Resp BP Pulse Ox 98.1 F 79 18 97/66 L 99 11/19/16 15:30 11/19/16 15:30 11/19/16 15:30 11/19/16 15:30 11/19/16 15:30 Intake and Output: 11/19/16 11/19/16 06:59 18:59 Intake Total 800 Balance 800 - Medications Medications: Current Medications Albuterol (Ventolin Hfa 90 Mcg/Actuation (8 G)) 2 puff INH RQ6 PRN PRN Reason: Wheezing Allopurinol (Zyloprim) 300 mg PO DAILY [facility] Last Admin: 11/19/16 10:39 Dose: 300 mg Bacitracin (Bacitracin) 0 gm TOP DAILY [facility] Last Admin: 11/19/16 10:44 Dose: 1 applic Bupropion HCl (Wellbutrin) 75 mg PO BID [facility] Last Admin: 11/19/16 10:34 Dose: 75 mg Famotidine (Pepcid) 20 mg PO DAILY [facility] Last Admin: 11/19/16 10:38 Dose: 20 mg Furosemide (Lasix) 20 mg PO DAILY [facility] Last Admin: 11/19/16 10:37 Dose: Not Given Gabapentin (Neurontin) 400 mg PO BID [facility] Last Admin: 11/19/16 10:34 Dose: 400 mg Potassium Chloride 40 meq/ (Sodium Chloride) 1,020 mls @ 150 mls/hr IV .Q6H48M [facility] Last Admin: 11/15/16 13:03 Dose: Not Given Azithromycin 500 mg/ Sodium (Chloride) 250 mls @ 250 mls/hr IVPB Q24H [facility] Last Admin: 11/18/16 21:27 Dose: 250 mls/hr Piperacillin Sod/Tazobactam Sod (Zosyn 2.25 Gm Iv Premix) 2.25 gm in 50 mls @ 100 mls/hr IVPB Q8H [facility] Last Admin: 11/19/16 10:32 Dose: 100 mls/hr Insulin Human Regular (Novolin R) 0 unit SC ACHS [facility] PRN Reason: Protocol Last Admin: 11/19/16 12:13 Dose: Not Given Oxybutynin Chloride (Ditropan Tab) 5 mg PO DAILY [facility] Last Admin: 11/19/16 10:35 Dose: 5 mg Potassium Chloride (K-Dur 20 Meq Er Tab) 40 meq PO DAILY [facility] Last Admin: 11/19/16 10:34 Dose: 40 meq Rivaroxaban (Xarelto) 15 mg PO BID [facility] Last Admin: 11/19/16 10:34 Dose: 15 mg - Labs Labs: 11/19/16 10:43 11/19/16 10:43 Assessment and Plan (1) Pneumonia Status: Acute (2) COPD (chronic obstructive pulmonary disease) Status: Chronic (3) History of lung cancer Status: Chronic
--- NOTE | 2016-11-19 17:12 | CP.PCM.DIS ---
Provider - Provider Date of Admission: 11/14/16 15:11 Attending physician: Aism Pritchett Jr, MD Primary care physician: PMD: Dr. Pritchett Consults: Pulm: Dr. Diaz Time Spent in preparation of Discharge (in minutes): 45 Diagnosis - Discharge Diagnosis (1) Depression Status: Acute Comment: please see discharge summary (2) Pneumonia Status: Acute Comment: please see discharge summary (3) COPD (chronic obstructive pulmonary disease) Status: Chronic Comment: please see discharge summary (4) Diabetes Status: Chronic Comment: please see discharge summary Hospital Course - Lab Results Lab Results: Most Recent Lab Values WBC 5.4 K/uL (4.8-10.8) 11/19/16 10:43 RBC 3.49 Mil/uL (3.80-5.20) L 11/19/16 10:43 Hgb 9.8 g/dL (11.0-16.0) L 11/19/16 10:43 Hct 30.5 % (34.0-47.0) L 11/19/16 10:43 MCV 87.4 fL (81.0-99.0) 11/19/16 10:43 MCH 28.2 pg (27.0-31.0) 11/19/16 10:43 MCHC 32.3 g/dL (33.0-37.0) L 11/19/16 10:43 RDW 15.6 % (11.5-14.5) H 11/19/16 10:43 Plt Count 152 K/uL (130-400) 11/19/16 10:43 MPV 7.1 fL (7.2-11.7) L 11/19/16 10:43 Neut % (Auto) 71.3 % (50.0-75.0) 11/19/16 10:43 Lymph % (Auto) 16.1 % (20.0-40.0) L 11/19/16 10:43 [place] % (Auto) 8.4 % (0.0-10.0) 11/19/16 10:43 Eos % (Auto) 3.7 % (0.0-4.0) 11/19/16 10:43 Baso % (Auto) 0.5 % (0.0-2.0) 11/19/16 10:43 Neut # 3.8 K/uL (1.8-7.0) 11/19/16 10:43 Lymph # 0.9 K/uL (1.0-4.3) L 11/19/16 10:43 [place] # 0.4 K/uL (0.0-0.8) 11/19/16 10:43 Eos # 0.2 K/uL (0.0-0.7) 11/19/16 10:43 Baso # 0.0 K/uL (0.0-0.2) 11/19/16 10:43 Sodium 142 mmol/L (132-148) 11/19/16 10:43 Potassium 4.2 mmol/L (3.6-5.2) 11/19/16 10:43 Chloride 99 mmol/L (98-107) 11/19/16 10:43 Carbon Dioxide 35 mmol/L (22-30) H 11/19/16 10:43 Anion Gap 12 (10-20) 11/19/16 10:43 BUN 15 mg/dL (7-17) 11/19/16 10:43 Creatinine 1.1 MG/DL (0.7-1.2) 11/19/16 10:43 Est GFR ( Amer) > 60 11/19/16 10:43 Est GFR (Non-Af Amer) 50 11/19/16 10:43 POC Glucose (mg/dL) 152 mg/dL (65-110) H 11/19/16 16:09 Random Glucose 132 mg/dL (65-105) H 11/19/16 10:43 Hemoglobin A1c 6.6 % (4.2-6.5) H 11/14/16 07:05 Calcium 8.9 mg/dl (8.6-10.4) 11/19/16 10:43 Phosphorus 3.3 mg/dL (2.5-4.5) 11/19/16 10:43 Magnesium 1.4 mg/dL (1.6-2.3) L 11/19/16 10:43 Total Bilirubin 0.3 mg/dL (0.2-1.3) 11/19/16 10:43 AST 21 U/L (14-36) 11/19/16 10:43 ALT 23 U/L (9-52) 11/19/16 10:43 Alkaline Phosphatase 76 U/L (38-126) 11/19/16 10:43 Troponin I 0.0330 ng/mL (0.00-0.120) 11/13/16 16:29 NT-Pro-B Natriuret Pep 526 pg/mL (0-900) 11/13/16 16:29 Total Protein 6.7 g/dL (6.3-8.3) 11/19/16 10:43 Albumin 3.1 g/dL (3.5-5.0) L 11/19/16 10:43 Globulin 3.7 gm/dL (2.2-3.9) 11/19/16 10:43 Albumin/Globulin Ratio 0.8 (1.0-2.1) L 11/19/16 10:43 Procalcitonin < 0.05 NG/ML (0.19-0.49) L 11/15/16 16:50 Free T4 0.81 ng/dL (0.78-2.19) 11/14/16 07:05 TSH 3rd Generation 2.67 mIU/L (0.46-4.68) 11/14/16 07:05 Ur L.pneumophila Ag Negative (NEGATIVE) 11/15/16 14:30 Mycoplasma pneumon IgM Positive (NEGATIVE) H 11/15/16 14:30 - Hospital Course Hospital Course: "HPI: Patient is a 61 year old female with PMHx of Anemia, COPD, Depression, DM , Gastritis, HTN, HLD, Lung CA, Shingles (2015), PAD, disc herniation who was brought in by her family because they were worried about new onset weakness worsening for 1 week and a cough with dark phlegm for 2 weeks[address]aughter [address] Dr. Pritchett who told her to bring patient to ED. Patient usually uses walker to walk, but in the past few days it has become increasingly hard for her to walk because she is so weak. Patient also complains of headache 8/10 and dizziness. She has some mild chest pain which comes and goes. She is short of breath. Patient has bilateral leg pain. Patient is very lethargic and a poor historian. She answers my questions by shaking her head or 1 word because she is so lethargic. She can barely keep her eyes open." Hospital Course: Patient treated for her lethargy secondary to COPD with nasal canula and albuterol. Pneumonia: Chest xray showed persistent left lower lobe opacity may reflect consolidation and or effusion. Linear atelectasis, left mid lung zones. Started 11/14 Ceftriaxone and Azythromycin. Pulmonology was consulted, Dr. Diaz who switched ceftriaxone to Zosyn on . Mycoplasma Pneumonia was positive. Legionella pneumophila Ag was negative. CT chest: Partial pneumonectomy noted again. Prominent left lower lobe atelectasis likely on a postoperative basis bhakti to probable left perihilar mass or lymphadenopthy. Procalcitonin: <0.[address] Diaz, unlikely pneumonia with normal pro calcitonin level. CT scan of the chest consistent with pneumonectomy. Hypokalemia: While in the hospital patient was treated for hypokalemia of 2.4 which is now stable at 3.9. Hypomagnesemia: Patient treated for magnesium of 1.2 with MagOx 400 mg. Diabetes: Patient was followed with accuchecks and treated with insulin sliding scale. Depression: Patient continued to receive Wellbutrin 75mg po bid Prophylactic Measures: Patient given pepcid 20mg po daily and xarelto 15mg po. Patient feeling much better and is more alert. Patient denies any complaints at this time. Patient stable for discharge as per Dr. Pritchett. This is a summary of the hospital course, please see chart for full details. Discharge Exam - Head Exam Head Exam: ATRAUMATIC, NORMAL INSPECTION, NORMOCEPHALIC - Eye Exam Eye Exam: EOMI, Normal appearance - ENT Exam ENT Exam: Mucous Membranes Moist - Neck Exam Neck exam: Full Rom - Respiratory Exam Respiratory Exam: Clear to PA & Lateral, NORMAL BREATHING PATTERN, UNREMARKABLE. absent: Rales, Rhonchi, Wheezes, Respiratory Distress, Stridor - Cardiovascular Exam Cardiovascular Exam: REGULAR RHYTHM, RRR. absent: Gallop, Rubs, Systolic Murmur - GI/Abdominal Exam GI & Abdominal Exam: Normal Bowel Sounds. absent: Firm - Extremities Exam Extremities exam: normal inspection - Neurological Exam Neurological exam: Alert, Oriented x3 - Psychiatric Exam Psychiatric exam: Normal Affect, Normal Mood - Skin Skin Exam: Intact, Normal Color, Warm Discharge Plan - Discharge Medications Prescriptions: Piperacill/Tazo 2.25gm in Dex [Zosyn 2.25 Gm IV Premix] 2.25 gm IVPB Q8H 5 Days Potassium Chloride [Potassium Chloride Inj] 40 meq IV .Q6H48M 5 Days - Follow Up Plan Condition: FAIR Disposition: REHAB FACILITY/REHAB UNIT Additional Instructions: Patient stable for discharge as per Dr. Prtichett. Patient to continue home medications and to continue Azithromycin 500mg in NS @250mls/hr IVPB Q24H for 5 days and Zosyn 2.25 gm iv premix in 50 mls at 100mls/hr IV for 5 days. Patient explained instructions who understands and agrees. Patient to please return if symptoms worsen or persist.
== END 2016-11-19 18:20 | DRG 190 ==
LOC: C.ER 15:45 → C.9E 17:08 → C.6T 20:27 → OBSVTOIN 11-14 15:11
PROVIDERS: ADMIT Internal Medicine; ATTEND Internal Medicine
DX: J44.0 Chronic obstructive pulmonary disease with (acute) lower respiratory infection (principal); J15.7 Pneumonia due to Mycoplasma pneumoniae; Z99.81 Dependence on supplemental oxygen; E83.42 Hypomagnesemia; J98.11 Atelectasis; E87.6 Hypokalemia; E11.9 Type 2 diabetes mellitus without complications; F32.9 Major depressive disorder, single episode, unspecified; E78.00 Pure hypercholesterolemia, unspecified; I10 Essential (primary) hypertension; Z85.118 Personal history of other malignant neoplasm of bronchus and lung; Z87.891 Personal history of nicotine dependence; Z92.21 Personal history of antineoplastic chemotherapy

== ENCOUNTER 2017-07-28 15:33 | Inpatient (IN) | payer MEDICARE, MEDICAID ==
[2017-07-28 15:34] VITALS: BMI 42.3
[2017-07-28] MEDS ORDERED: Sodium Chloride 0.9% 500 ML IV ONE ×2 (16:24→17:21)
[2017-07-28 16:28] LABS: VENOUS BLOOD GAS BASE EXCESS 17.6 mmol/L (0.0-2.0); VENOUS BLOOD GAS PCO2 73 mmHg (40-60); VENOUS BLOOD GAS PO2 25 mm/Hg (30-55); VENOUS BLOOD PH 7.41 (7.32-7.43)
[2017-07-28 16:30] LABS: BASO % 0.5 % (0.0-2.0); EOS # 0.1 K/uL (0.0-0.7); EOS % 1.6 % (0.0-4.0); HEMOGLOBIN 10.6 g/dL (11.0-16.0); LYMPH % 12.6 % (20.0-40.0); MEAN CELL VOLUME 85.1 fL (81.0-99.0); MEAN CORPUSCULAR HEMOGLOBIN 27.9 pg (27.0-31.0); MEAN CORPUSCULAR HGB CONC 32.8 g/dL (33.0-37.0); MEAN PLATELET VOLUME 7.2 fL (7.2-11.7); MONO # 0.9 K/uL (0.0-0.8); MONO % 11.3 % (0.0-10.0); NEUT # 5.7 K/uL (1.8-7.0); NRBC % 0.1 % (0.0-2.0); RBC 3.79 Mil/uL (3.80-5.20); RED CELL DISTRIBUTION WIDTH 14.4 % (11.5-14.5); WHITE BLOOD COUNT 7.8 K/uL (4.8-10.8)
[2017-07-28 16:38] LABS: INR 1.2; PROTHROMBIN TIME 12.6 SECONDS (9.7-12.2)
[2017-07-28 16:58] LABS: ALBUMIN 3.7 g/dL (3.5-5.0); CALCIUM 9.2 mg/dl (8.6-10.4)
[2017-07-28 17:02] LABS: CK-MB 0.75 ng/mL (0.0-3.38); TROPONIN I 0.025 ng/mL (0.00-0.120)
--- NOTE | 2017-07-28 17:15 | RAD ---
PROCEDURE: CHEST RADIOGRAPH, 1 VIEW HISTORY: SOB COMPARISON: Comparison chest dated 11/13/2016. Note that the study is slightly limited due to some patient rotation to the left side FINDINGS: In situ right subclavian MediPort with tip in the brachiocephalic/SVC junction the the the LUNGS: There is opacification left mid to lower lung zone which may represent some combination of atelectasis/ infiltrate and questionable left effusion. PLEURA: No pneumothorax or pleural fluid seen. CARDIOVASCULAR: Right cardiac border is not visualized possibly due to some patient rotation and therefore heart size difficult to assess. OSSEOUS STRUCTURES: No significant abnormalities. VISUALIZED UPPER ABDOMEN: Normal. OTHER FINDINGS: None. IMPRESSION: There is opacification left mid to lower lung zone which may represent some combination of atelectasis/ infiltrate and questionable left effusion.
[2017-07-28 17:27] LABS: SQUAMOUS EPITHIAL 1 /hpf (0-5); URINE BACTERIA OCC (<OCC); URINE BILIRUBIN NEGATIVE (NEGATIVE); URINE BLOOD NEGATIVE (NEGATIVE); URINE CLARITY Clear (Clear); URINE COLOR Straw (YELLOW); URINE GLUCOSE (UA) NORMAL (Normal); URINE LEUKOCYTE ESTERASE NEG Leu/uL (Negative); URINE PROTEIN NEGATIVE (NEGATIVE); URINE UROBILINOGEN NORMAL mg/dL (0.2-1.0)
--- NOTE | 2017-07-28 17:32 | CT ---
PROCEDURE: CT HEAD WITHOUT CONTRAST. HISTORY: AMS COMPARISON: Unenhanced head CT 10/16/2016. TECHNIQUE: Axial computed tomography images were obtained through the head/brain without intravenous contrast. Radiation dose: Total exam DLP = 800.81 mGy-cm. This CT exam was performed using one or more of the following dose reduction techniques: Automated exposure control, adjustment of the mA and/or kV according to patient size, and/or use of iterative reconstruction technique. FINDINGS: HEMORRHAGE: No intracranial hemorrhage. BRAIN: Minimal subcortical chronic microangiopathy is appreciated at the cerebrum. There is no mass effect or cortical edema. There is no suspicious extra-axial collection identified and the midline brain anatomy remains within normal limits. Posterior fossa contents appear unremarkable. VENTRICLES: Unremarkable. No hydrocephalus. CALVARIUM: Unremarkable. PARANASAL SINUSES: Unremarkable as visualized. No significant inflammatory changes. MASTOID AIR CELLS: Unremarkable as visualized. No inflammatory changes. OTHER FINDINGS: None. IMPRESSION: Trace age-appropriate age related neuro degenerative change. No definite acute intracranial findings. Follow-up CT or MRI are available as clinically warranted.
[2017-07-28] MEDS ORDERED: cefTRIAXone IV 1 gm in Dextros 50 ML IV STA (17:40)
[2017-07-28] MEDS ORDERED: Azithromycin 500 MG in Sodium Chloride 0.9% 250 ML IVPB STA (17:41)
--- NOTE | 2017-07-28 17:42 | C.PDOC ---
History Of Present Illness Patient brought to ED by daughter for evaluation of generalized weakness, increased drowsiness, slurred speech x worsening over the past 2 weeks. Patient has PMHx of lung CA (in remission), COPD on home O2, anemia, DM II, gastritis, depression. Time Seen by Provider: 07/28/17 15:58 Chief Complaint (Nursing): Weakness/Neurological Deficit History Per: Patient, Family History/Exam Limitations: no limitations Onset/Duration Of Symptoms: Days (2 weeks) Current Symptoms Are (Timing): Still Present Past Medical History Reviewed: Historical Data, Nursing Documentation, Vital Signs Vital Signs: Last Vital Signs Temp 97.8 F 08/03/17 07:00 Pulse 92 H 08/03/17 08:00 Resp 20 08/03/17 07:00 BP 96/64 L 08/03/17 09:47 Pulse Ox 95 08/03/17 07:00 - Medical History PMH: Anemia, COPD (on home O2), Depression, Diabetes, Gastritis, HTN, Hypercholesterolemia, Malignancy (LUNG MASS) Surgical History: Endoscopy - [facility] Procedures CLOSED [PERCUTANEOUS] [NEEDLE] BIOPSY OF LUNG (02/03/13) ESOPHAGOGASTRODUODENOSCOPY [EGD] W/CLOSED BIOPSY (02/03/13) FIBER-OPTIC BRONCHOSCOPY (04/21/13) INSERTION OF TOTALLY IMPLANTABLE VASC ACCESS DEVIC (09/22/14) LYMPHATIC STRUCT BIOPSY (04/21/13) OPEN BIOPSY OF LUNG (02/03/13) PACKED CELL TRANSFUSION (04/21/13) RADICAL EXCIS SKIN LES (11/21/13) RADIOTHERAPEUT PROC NEC (05/06/13) VENOUS CATHETERIZATION NEC (02/03/13) Family History: States: No Known Family Hx - Social History Hx Tobacco Use: No Hx Alcohol Use: No Hx Substance Use: No - Immunization History Hx Tetanus Toxoid Vaccination: No Hx Influenza Vaccination: Yes Hx Pneumococcal Vaccination: Yes Review Of Systems Constitutional: Positive for: Weakness. Negative for: Fever, Chills Cardiovascular: Negative for: Chest Pain Respiratory: Positive for: Cough, Shortness of Breath Gastrointestinal: Negative for: Nausea, Vomiting, Abdominal Pain, Diarrhea Skin: Negative for: Rash Neurological: Positive for: Other (sluurred speech x 2 weeks). Negative for: Weakness, Numbness, Incoordination, Headache Physical Exam - Physical Exam Appears: Well, Non-toxic, No Acute Distress Skin: Normal Color, Warm, Dry Eye(s): bilateral: Normal Inspection, PERRL, EOMI Oral Mucosa: Dry Cardiovascular: Rhythm Regular Respiratory: Normal Breath Sounds, No Rales, No Rhonchi, No Wheezing Gastrointestinal/Abdominal: Normal Exam, Bowel Sounds, Soft, No Tenderness Extremity: Pedal Edema (+1 pitting edema B/L LEs with chronic skin changes ), No Calf Tenderness Pulses: Left Dorsalis Pedis: Normal, Right Dorsalis Pedis: Normal Neurological/Psych: Oriented x3, No Normal Speech (mildly slurred ), Normal Cranial Nerves, Normal Motor, Normal Sensation, No Dysarthria, No Romberg ED Course And Treatment - Laboratory Results Result Diagrams: 08/03/17 07:20 08/03/17 07:20 ECG: Interpreted By Me, Viewed By Me (NSR 97 bpm, left axis deviation, T wave flattening, II, aVR, V2-V6) ECG Interpretation: Abnormal O2 Sat by Pulse Oximetry: 99 (ra) Pulse Ox Interpretation: Normal - Radiology CXR: Interpreted by Me, Viewed By Me (left lower lobe infiltrate) - CT Scan/US CT HEAD Other Rad Studies (CT/US): Read By Radiologist, Radiology Report Reviewed CT/US Interpretation: Accession No. : [id number]. Patient Name / ID : PRINCESS REYES / [id number]. Exam Date : 07/28/2017 16:57:26 ( Approved ). Study Comment : Sex / Age : F / [id number]. Creator : Richelle De Jesus. Dictator : Franklyn Crowder MD. Travel Registered Nurse Icu : Administrator : Franklyn Crowder MD. Approver2 : Report Date : 07/28/2017 17:27:19. My Comment : . PROCEDURE: CT HEAD WITHOUT CONTRAST. HISTORY: AMS. COMPARISON: Unenhanced head CT 05/2016. TECHNIQUE: Axial computed tomography images were obtained through the head/brain without intravenous contrast. Radiation dose: Total exam DLP = 800.81 mGy-cm. This CT exam was performed using one or more of the following dose reduction techniques: Automated exposure control, adjustment of the mA and/ or kV according to patient size, and/or use of iterative reconstruction technique. FINDINGS: HEMORRHAGE: No intracranial hemorrhage. BRAIN: Minimal subcortical chronic microangiopathy is appreciated at the cerebrum. There is no mass effect or cortical edema. There is no suspicious extra-axial collection identified and the midline brain anatomy remains within normal limits. Posterior fossa contents appear unremarkable. VENTRICLES: Unremarkable. No hydrocephalus. CALVARIUM: Unremarkable. PARANASAL SINUSES: Unremarkable as visualized. No significant inflammatory changes. MASTOID AIR CELLS: Unremarkable as visualized. No inflammatory changes. OTHER FINDINGS: None. IMPRESSION: Trace age-appropriate age related neuro degenerative change. No definite acute intracranial findings. Follow-up CT or MRI are available as clinically warranted. Progress Note: Blood work, EKG, CXR, UA, CT Head ordered and reviewed. - Physician Consult Information Physician Contacted: Asim Pritchett Jr. Outcome Of Conversation: Discussed patient with Dr. Pritchett, agrees with admission to his service. residential building inspector made aware. Disposition - Disposition Disposition: HOSPITALIZED Disposition Time: 17:58 Condition: STABLE - Clinical Impression Clinical Impression: Pneumonia, Hypercarbia, Generalized weakness, Abnormal EKG, Hypokalemia, Renal insufficiency Decision To Admit - Pt Status Changed To: Hospital Disposition Of: Inpatient - Admit Certification Admit to Inpatient:: After my assessment, the patient will require hospitalization for at least two midnights. This is because of the severity of symptoms shown, intensity of services needed, and/or the medical risk in this patient being treated as an outpatient. - InPatient: Physician Admission Certification: I certify that this patient requires 2 or more midnights of care for the following reason:: see notes - . Bed Request Type: Telemetry Admitting Physician: Asim Pritchett Jr. Patient Diagnosis: Pneumonia, Hypercarbia, Generalized weakness, Abnormal EKG, Hypokalemia, Renal insufficiency
[2017-07-28] MEDS ORDERED: Potassium Chloride 20 mEq ER Tab PO STA (17:53)
[2017-07-28] MEDS ORDERED: cefTRIAXone IV 1 gm in Dextros 50 ML IVPB ONE (17:56)
--- NOTE | 2017-07-28 18:12 | CP.PCM.HP ---
History of Present Illness - History of Present Illness History of Present Illness: CC: "weakness and fatigue" 61F presents with weakness, sleepy, slurred speech for three weeks. Patient was brought in by daughter. Patient was found to be hypokalemic at 2.6. T waves showed flattening on EKG. Patient was given potassium chloride on IVPB. Patient denies any complaints at this time except for some difficulty breathing. Patient is a poor historian due to difficulty with recollection. Patient states that she takes potassium at home but ran out. PMHx: Anemia, COPD, Depression, DM, Gastritis, HTN, HLD, Lung CA, PAD, disc herniation, Shingles (2014) PSurgHx: Toe amputations, Right pretibial skin graft for ulcers, Left hip tumor/ mass removed (2013), cervical spine surgery FMHx: Father- Lung CA, Mother - Breast CA, Heart disease Allergies: NKDA Social Hx: lives with daughter (Ronda). 7 cigarettes per day for about 40yrs ( quit 2012), 1/2 pint of gin and 2 beers for 40yrs (Current rare ETOH use), denies any illicit drug use. PMD: Dr. Pritchett Present on Admission - Present on Admission Any Indicators Present on Admission: No History of DVT/PE: No History of Uncontrolled Diabetes: Yes Urinary Catheter: No Decubitus Ulcer Present: No Review of Systems - Review of Systems All systems: reviewed and no additional remarkable complaints except - Constitutional Constitutional: absent: Chills, Daytime Sleepiness, Excessive Sweating, Sleep Apnea, Weight Gain - EENT Eyes: absent: Blurred Vision, Change in Vision Ears: absent: Decreased Hearing, Abnormal Hearing, Disequilibrium, Dizziness - Cardiovascular Cardiovascular: Dyspnea on Exertion. absent: Chest Pain, Chest Pain at Rest, Irregular Heart Rhythm - Respiratory Respiratory: Cough (nonproductive). absent: Dyspnea, Stridor - Gastrointestinal Gastrointestinal: absent: Constipation, Nausea, Vomiting - Musculoskeletal Musculoskeletal: As Per HPI. absent: Abnormal Gait, Arthralgias, Back Pain, Limited Range of Motion - Neurological Neurological: As Per HPI. absent: Abnormal Gait, Abnormal Hearing, Behavioral Changes, Headaches, Paresthesias Past Patient History - Past Medical History & Family History Past Medical History?: Yes - Past Social History Smoking Status: Former Smoker - CARDIAC Hx Hypercholesterolemia: Yes Hx Hypertension: Yes - PULMONARY Hx Chronic Obstructive Pulmonary Disease (COPD): Yes (on home O2) - NEUROLOGICAL Hx Neurological Disorder: No - HEENT Hx HEENT Problems: Yes (wears glasses) - RENAL Hx Chronic Kidney Disease: No - ENDOCRINE/METABOLIC Hx Diabetes Mellitus Type 2: Yes - HEMATOLOGICAL/ONCOLOGICAL Hx Anemia: Yes - INTEGUMENTARY Other/Comment: mass left hip/REMOVED FEB 2014 - MUSCULOSKELETAL/RHEUMATOLOGICAL Hx Falls: No - GASTROINTESTINAL Hx Gastritis: Yes - GENITOURINARY/GYNECOLOGICAL Hx Genitourinary Disorders: Yes Hx Incontinence: Yes (ON DITROPAN) - PSYCHIATRIC Hx Depression: Yes Hx Substance Use: No - SURGICAL HISTORY Hx Surgeries: Yes Hx Amputation: Yes (RT.FOOT 2 TOES) Hx Vascular Access Device: Yes (port-a-cath insertion RCW) Other/Comment: debridment of ulcer on right leg, rt hip sx - ANESTHESIA Hx Anesthesia: Yes Hx Anesthesia Reactions: No Hx Malignant Hyperthermia: No Meds Allergies/Adverse Reactions: Allergies Allergy/AdvReac Type Severity Reaction Status Date / Time No Known Allergies Allergy Verified 11/13/16 15:53 Physical Exam - Constitutional Appears: Non-toxic, No Acute Distress - Head Exam Head Exam: ATRAUMATIC, NORMAL INSPECTION, NORMOCEPHALIC - Eye Exam Eye Exam: EOMI Pupil Exam: NORMAL ACCOMODATION Additional comments: left palpebra lower than right - ENT Exam ENT Exam: Mucous Membranes Moist, Normal Exam - Neck Exam Neck exam: Positive for: Full Rom, Normal Inspection. Negative for: Tenderness , Thyromegaly - Respiratory Exam Respiratory Exam: Clear to Auscultation Bilateral, NORMAL BREATHING PATTERN. absent: Accessory Muscle Use, Respiratory Distress - Cardiovascular Exam Cardiovascular Exam: REGULAR RHYTHM, +S1, +S2 - GI/Abdominal Exam GI & Abdominal Exam: Normal Bowel Sounds, Soft. absent: Tenderness - Extremities Exam Extremities exam: Positive for: full ROM. Negative for: pedal edema Additional comments: patient has had toe amputations muscle strength 5/5 upper extremity bilaterally 3/5 lower extremities, but may be due to obtund abdomen - Back Exam Back exam: FULL ROM, NORMAL INSPECTION - Neurological Exam Neurological exam: CN II-XII Intact - Psychiatric Exam Psychiatric exam: Normal Affect, Normal Mood - Skin Skin Exam: Dry, Intact, Normal Color, Warm Results - Vital Signs Recent Vital Signs: Last Vital Signs Temp 98.7 F 07/28/17 16:09 Pulse 97 H 07/28/17 16:09 Resp 16 07/28/17 16:09 BP 96/54 L 07/28/17 16:09 Pulse Ox 99 07/28/17 17:55 - Labs Result Diagrams: 07/28/17 16:27 07/28/17 16:27 Labs: Laboratory Results - last 24 hr 07/28/17 07/28/17 07/28/17 16:20 16:27 16:27 WBC 7.8 RBC 3.79 L Hgb 10.6 L Hct 32.2 L MCV 85.1 D MCH 27.9 MCHC 32.8 L RDW 14.4 Plt Count 208 MPV 7.2 Neut % (Auto) 74.0 Lymph % (Auto) 12.6 L [place] % (Auto) 11.3 H Eos % (Auto) 1.6 Baso % (Auto) 0.5 Neut # (Auto) 5.7 Lymph # (Auto) 1.0 [place] # (Auto) 0.9 H Eos # (Auto) 0.1 Baso # (Auto) 0.0 PT INR APTT pO2 25 L VBG pH 7.41 VBG pCO2 73 H* VBG HCO3 37.3 VBG Total CO2 48.5 H VBG O2 Sat (Calc) 44.1 VBG Base Excess 17.6 H VBG Potassium 2.8 L Sodium 140.0 144 Chloride 96.0 L 89 L Glucose 167 H Lactate 1.5 FiO2 21.0 Crit Value Called To Dr sandoval Crit Value Called By [facility] Crit Value Read Back Y Blood Gas Notified Time 1628 Potassium 2.6 L Carbon Dioxide 40 H* Anion Gap 18 BUN 32 H Creatinine 1.6 H Est GFR ( Amer) 39 Est GFR (Non-Af Amer) 33 Random Glucose 174 H Calcium 9.2 Total Bilirubin 0.7 AST 23 ALT 28 Alkaline Phosphatase 114 Total Creatine Kinase 66 CK-MB (Mass) 0.75 Troponin I 0.0250 NT-Pro-B Natriuret Pep 440 Total Protein 7.6 Albumin 3.7 Globulin 3.9 Albumin/Globulin Ratio 1.0 Venous Blood Potassium 2.8 L Urine Color Urine Clarity Urine pH Ur Specific [place] Urine Protein Urine Glucose (UA) Urine Ketones Urine Blood Urine Nitrate Urine Bilirubin Urine Urobilinogen Ur Leukocyte Esterase Urine WBC (Auto) Ur Squamous Epith Cells Urine Bacteria 07/28/17 07/28/17 16:27 17:17 WBC RBC Hgb Hct MCV MCH MCHC RDW Plt Count MPV Neut % (Auto) Lymph % (Auto) [place] % (Auto) Eos % (Auto) Baso % (Auto) Neut # (Auto) Lymph # (Auto) [place] # (Auto) Eos # (Auto) Baso # (Auto) PT 12.6 H INR 1.2 APTT 31 pO2 VBG pH VBG pCO2 VBG HCO3 VBG Total CO2 VBG O2 Sat (Calc) VBG Base Excess VBG Potassium Sodium Chloride Glucose Lactate FiO2 Crit Value Called To Crit Value Called By Crit Value Read Back Blood Gas Notified Time Potassium Carbon Dioxide Anion Gap BUN Creatinine Est GFR ( Amer) Est GFR (Non-Af Amer) Random Glucose Calcium Total Bilirubin AST ALT Alkaline Phosphatase Total Creatine Kinase CK-MB (Mass) Troponin I NT-Pro-B Natriuret Pep Total Protein Albumin Globulin Albumin/Globulin Ratio Venous Blood Potassium Urine Color Straw Urine Clarity Clear Urine pH 7.0 Ur Specific [place] 1.005 Urine Protein Negative Urine Glucose (UA) Normal Urine Ketones Negative Urine Blood Negative Urine Nitrate Negative Urine Bilirubin Negative Urine Urobilinogen Normal Ur Leukocyte Esterase Neg Urine WBC (Auto) 1 Ur Squamous Epith Cells 1 Urine Bacteria Occ H Assessment & Plan - Assessment and Plan (Free Text) Assessment: 61F with extensive past medical history admitted for weakness and hypokalemia. Anemia monitor hemoglobin electrolyte imbalance, hypokalemia, repleting 20 meq x 2 40 meq x 1 f/u CMP f/u aldosterone f/u renin angiotensin COPD CXR: opacification left mid lower lung zone. combination of atelectasis. similar to previous CXR on previous visit. Pulm Consult: Dr. Diaz BIPAP PRN O2 Saturation <96% Singulair 10mg PO QHS Azithromycin Rocephin Depression wellbutrin 75mg PO BID DM insulin SS accucheck achs hypoglycemic protocol Gabapentin 400mg PO BID Gastritis pepcid 20mg PO QD HTN Metolazone 5 mg PO QD lasix 20 mg POQD HLD Lung CA PAD Urinary incontinence Oxybutynin 5 mg PO QD Prophylaxis Pepcid 20mg POQD Xarelto 15mg POQD discussed with Dr. Shreyas Jin Eng - Date & Time Date: 07/28/17 Time: 18:52
[2017-07-28] MEDS ORDERED: Potassium Chloride 20 mEq/15 ml LIQ UD ONE (18:30)
[2017-07-28] MEDS ORDERED: Potassium Chloride 20 mEq/15 ml LIQ UD PO STA (18:39)
[2017-07-28] MEDS ORDERED: Albuterol HFA 90 mcg/actuation (8 g) INH PRN (18:46)
[2017-07-28] MEDS ORDERED: Dextrose 50% SYRINGE Inj (50 ml) IV PRN (18:48)
[2017-07-28] MEDS ORDERED: Glucagon Recombinant 1 mg Inj IM PRN (18:48)
[2017-07-28] MEDS ORDERED: Potassium Chloride 20 mEq 100 ML ONE ×2 (19:36→21:46)
[2017-07-28] MEDS: (Novolin R) Insulin Human Regular 100 units/ml vial SC SCH (21:41)
[2017-07-28] MEDS ORDERED: (Novolin R) Insulin Human Regular 100 units/ml vial ONE (21:42)
[2017-07-29 04:47] LABS: ALB/GLOB RATIO 0.9 (1.0-2.1); ALBUMIN 3.4 g/dL (3.5-5.0); CALCIUM 8.6 mg/dl (8.6-10.4)
[2017-07-29] MEDS: Albuterol-Ipratrop 3 mg / 0.5 (3 ml) UD INH SCH ×6 (05:55→23:42)
[2017-07-29] MEDS ORDERED: Albuterol-Ipratrop 3 mg / 0.5 (3 ml) UD ONE (05:59)
--- NOTE | 2017-07-29 07:08 | CP.PCM.PN ---
<MooseVanna JobyMarilee - Last Filed: 07/29/17 16:48> Subjective - Date & Time of Evaluation Date of Evaluation: 07/29/17 Time of Evaluation: 07:00 - Subjective Subjective: Medicine Progress Note: Patient was seen and examined at bedside in the AM. Patient states she continues to cough with white/yellow phlegm. Patient denies nausea, vomiting, chest pain, fever or chills. Objective - Vital Signs/Intake and Output Vital Signs (last 24 hours): Temp Pulse Resp BP Pulse Ox 98.3 F 90 16 96/63 L 98 07/29/17 06:00 07/29/17 06:00 07/29/17 06:00 07/29/17 06:00 07/29/17 06:00 - Medications Medications: Current Medications Albuterol/Ipratropium (Duoneb 3 Mg/0.5 Mg (3 Ml) Ud) 3 ml INH RQ4 RICKY Last Admin: 07/29/17 05:55 Dose: 3 ml Allopurinol (Zyloprim) 300 mg PO DAILY [facility]ICK[facility] Bupropion HCl (Wellbutrin) 75 mg PO BID RICKY Dextrose (Dextrose 50% Inj) 0 ml IV STAT PRN; Protocol PRN Reason: Hypoglycemia Protocol Dextrose (Glutose 15) 0 gm PO ONCE PRN; Protocol PRN Reason: Hypoglycemia Protocol Famotidine (Pepcid) 20 mg PO DAILY [facility]ICK[facility] Furosemide (Lasix) 20 mg PO DAILY [facility] Gabapentin (Neurontin) 400 mg PO BID [facility] Glucagon (Glucagen Diagnostic Kit) 0 mg IM STAT PRN; Protocol PRN Reason: Hypoglycemia Protocol Dextrose (Dextrose 5% In Water 1000 Ml) 1,000 mls @ 0 mls/hr IV .Q0M PRN; Protocol; Per Protocol PRN Reason: Hypoglycemia Protocol Azithromycin 500 mg/ Sodium (Chloride) 250 mls @ 250 mls/hr IVPB DAILY@1800 RICKY PRN Reason: Protocol Ceftriaxone Sodium 1 gm/ (Sodium Chloride) 100 mls @ 100 mls/hr IVPB Q12H [facility] PRN Reason: Protocol Insulin Human Regular (Novolin R) 0 unit SC ACHS [facility]ICK[facility] PRN Reason: Protocol Last Admin: 07/28/17 21:41 Dose: 1 unit Metolazone (Zaroxolyn) 5 mg PO DAILY [facility]ICK[facility] Montelukast Sodium (Singulair) 10 mg PO HS RICKY Last Admin: 07/28/17 21:44 Dose: 10 mg Oxybutynin Chloride (Ditropan Tab) 5 mg PO DAILY [facility] Rivaroxaban (Xarelto) 15 mg PO DAILY [facility] - Labs Labs: 07/28/17 16:27 07/29/17 03:42 PT 12.6 SECONDS (9.7-12.2) H 07/28/17 16:27 INR 1.2 07/28/17 16:27 APTT 31 SECONDS (21-34) 07/28/17 16:27 - Constitutional Appears: Chronically Ill - Head Exam Head Exam: ATRAUMATIC, NORMAL INSPECTION - Eye Exam Eye Exam: EOMI, Normal appearance - ENT Exam ENT Exam: Mucous Membranes Moist - Respiratory Exam Respiratory Exam: Decreased Breath Sounds, NORMAL BREATHING PATTERN - Cardiovascular Exam Cardiovascular Exam: REGULAR RHYTHM, +S1, +S2 - GI/Abdominal Exam GI & Abdominal Exam: Soft, Normal Bowel Sounds. absent: Tenderness - Extremities Exam Extremities Exam: Pedal Edema - Neurological Exam Neurological Exam: Alert, Awake, Oriented x3 - Psychiatric Exam Psychiatric exam: Normal Affect Assessment and Plan - Assessment and Plan (Free Text) Assessment: 1.) Shortness of breath - secondary to COPD exacerbation - Chest xray: opacification left mid lower lung zone. combination of atelectasis. similar to previous CXR on previous visit. - Pulm Consult: Dr. Diaz --> help appreciated - BIPAP PRN O2 Saturation <96% - Medications * Singulair 10mg PO QHS * Azithromycin 500mg daily (started 07/29/17) * Rocephin 1gm q12h (started 07/29/17) 2.) Hypokalemia - K 2.6 on admission (07/28/17) --> 3.2 - Given in the emergency room 20 meq x 2 - 40 meq x 1 - Continue to monitor - f/u aldosterone - f/u renin angiotensin 3.) Weakness - secondary to COPD exacerbation vs. hypokalemia - Head CT: Trace age-appropriate age related neuro degenerative change. No definite acute intracranial findings. Follow-up CT or MRI are available as clinically warranted. 4.) History of DM - Insulin SS - Accucheck achs - Hypoglycemic protocol - f/u hA1c 5.) HTN - ECHO (03/10/16): EF 55%, left ventricular ejection fraction is within normal range - Continue Medications * Metolazone 5 mg PO QD * Lasix 20 mg POQD 6.) History of HLD - f/u Lipid panel 7.) Diabetic Neuropathy - Gabapentin 400mg PO BID 8.) History of Anemia - H/H 10.6/32.2 - Continue to monitor 9.) History of Depression - Wellbutrin 75mg PO BID 10.) History of Gastritis - Pepcid 20mg PO QD 11.) History of Lung CA 12.) History of PAD 13.) History of Urinary incontinence - Oxybutynin 5 mg PO QD 14.) Prophylaxis - Pepcid 20mg POQD - Xarelto 15mg POQD Case discussed with Dr. Shreyas Virk PGY-1 <Asim Pritchett Jr. - Last Filed: 08/01/17 14:56> Objective - Vital Signs/Intake and Output Vital Signs (last 24 hours): Temp Pulse Resp BP Pulse Ox 98.1 F 99 H 20 105/69 99 08/01/17 07:10 08/01/17 13:28 08/01/17 07:10 08/01/17 09:24 08/01/17 07:10 Intake and Output: 08/01/17 08/01/17 06:59 18:59 Intake Total 590 600 Balance 590 600 - Medications Medications: Current Medications Albuterol/Ipratropium (Duoneb 3 Mg/0.5 Mg (3 Ml) Ud) 3 ml INH RQ4 [facility] Last Admin: 08/01/17 11:19 Dose: 3 ml Allopurinol (Zyloprim) 300 mg PO DAILY [facility] Last Admin: 08/01/17 09:24 Dose: 300 mg Bupropion HCl (Wellbutrin) 75 mg PO BID [facility] Last Admin: 08/01/17 09:24 Dose: 75 mg Dextrose (Dextrose 50% Inj) 0 ml IV STAT PRN; Protocol PRN Reason: Hypoglycemia Protocol Dextrose (Glutose 15) 0 gm PO ONCE PRN; Protocol PRN Reason: Hypoglycemia Protocol Famotidine (Pepcid) 20 mg PO DAILY [facility] Last Admin: 08/01/17 09:24 Dose: 20 mg Furosemide (Lasix) 20 mg PO DAILY [facility] Last Admin: 08/01/17 09:24 Dose: 20 mg Gabapentin (Neurontin) 400 mg PO BID [facility] Last Admin: 08/01/17 09:24 Dose: 400 mg Glucagon (Glucagen Diagnostic Kit) 0 mg IM STAT PRN; Protocol PRN Reason: Hypoglycemia Protocol Dextrose (Dextrose 5% In Water 1000 Ml) 1,000 mls @ 0 mls/hr IV .Q0M PRN; Protocol; Per Protocol PRN Reason: Hypoglycemia Protocol Azithromycin 500 mg/ Sodium (Chloride) 250 mls @ 250 mls/hr IVPB DAILY@1800 [facility] PRN Reason: Protocol Last Admin: 07/31/17 17:29 Dose: 250 mls/hr Ceftriaxone Sodium 1 gm/ (Sodium Chloride) 100 mls @ 100 mls/hr IVPB Q12H [facility] PRN Reason: Protocol Last Admin: 08/01/17 04:56 Dose: 100 mls/hr Insulin Human Regular (Novolin R) 0 unit SC ACHS [facility] PRN Reason: Protocol Last Admin: 08/01/17 12:30 Dose: 2 unit Metolazone (Zaroxolyn) 5 mg PO DAILY [facility] Last Admin: 08/01/17 09:24 Dose: 5 mg Montelukast Sodium (Singulair) 10 mg PO HS [facility] Last Admin: 07/31/17 21:19 Dose: 10 mg Oxybutynin Chloride (Ditropan Tab) 5 mg PO DAILY [facility] Last Admin: 08/01/17 09:24 Dose: 5 mg Rivaroxaban (Xarelto) 15 mg PO DAILY [facility] Last Admin: 08/01/17 09:24 Dose: 15 mg - Labs Labs: 08/01/17 07:01 08/01/17 07:01 PT 12.6 SECONDS (9.7-12.2) H 07/28/17 16:27 INR 1.2 07/28/17 16:27 APTT 31 SECONDS (21-34) 07/28/17 16:27 Attending/Attestation - Attestation I have personally seen and examined this patient.: Yes I have fully participated in the care of the patient.: Yes I have reviewed all pertinent clinical information, including history, physical exam and plan: Yes Notes (Text): 08/01/17 14:56 agree with resident note findings and plan of care.
[2017-07-29] MEDS ORDERED: cefTRIAXone IV 1 gm in Dextros 50 ML IVPB ONE (07:59)
[2017-07-29] MEDS ORDERED: Potassium Chloride 20 mEq ER Tab PO ONE (08:00)
[2017-07-29] MEDS: (Novolin R) Insulin Human Regular 100 units/ml vial SC SCH ×4 (08:04→21:11)
[2017-07-29] MEDS: metOLazone 5 MG TAB PO SCH (11:04)
[2017-07-29 15:06] LABS: BASO % 0.7 % (0.0-2.0); EOS # 0.2 K/uL (0.0-0.7); EOS % 2.6 % (0.0-4.0); HEMOGLOBIN 9.7 g/dL (11.0-16.0); LYMPH # 0.7 K/uL (1.0-4.3); LYMPH % 10.9 % (20.0-40.0); MEAN CELL VOLUME 85.4 fL (81.0-99.0); MEAN CORPUSCULAR HEMOGLOBIN 28.1 pg (27.0-31.0); MEAN CORPUSCULAR HGB CONC 32.9 g/dL (33.0-37.0); MEAN PLATELET VOLUME 7.7 fL (7.2-11.7); MONO # 0.7 K/uL (0.0-0.8); MONO % 11.3 % (0.0-10.0); NEUT # 4.6 K/uL (1.8-7.0); NEUT % 74.5 % (50.0-75.0); RBC 3.45 Mil/uL (3.80-5.20); RED CELL DISTRIBUTION WIDTH 14.7 % (11.5-14.5); WHITE BLOOD COUNT 6.2 K/uL (4.8-10.8)
--- NOTE | 2017-07-29 15:37 | CP.PCM.CON ---
History of Present Illness - History of Present Illness History of Present Illness: Reason for consultation: productive cough/ history of COPD and lung cancer 61 year old female presents to the ED for progressively worsening generalized weakness,slurred speech, drowsiness over the past few weeks.Also complaining of cough productive of yellowish phlegm. Denies fever or chills, denies chest pain PMHx: Anemia, COPD, Depression, DM, Gastritis, HTN, HLD, Lung CA, Shingles (2014 ) PSurgHx: Right Great toe amputation, Right pretibial skin graft due "ulcers", Left hip "mass" removed (2013) FMHx: Father- Lung CA, Mother - Breast CA, Heart disease Allergies: NKDA Social Hx: lives with daughter (Ronda). 2/3 pack per day tobacco for 40yrs ( quit 5 years ago), 1/2 pint of gin and 2 beers for 40yrs (Current rare ETOH use) , denies any illicit drug use. Review of Systems - Review of Systems All systems: reviewed and no additional remarkable complaints except ( generalized weaknessand cough) Past Patient History - Past Medical History & Family History Past Medical History?: Yes - Past Social History Smoking Status: Former Smoker - CARDIAC Hx Hypercholesterolemia: Yes Hx Hypertension: Yes - PULMONARY Hx Chronic Obstructive Pulmonary Disease (COPD): Yes (on home O2) - NEUROLOGICAL Hx Neurological Disorder: No - HEENT Hx HEENT Problems: Yes (wears glasses) - RENAL Hx Chronic Kidney Disease: No - ENDOCRINE/METABOLIC Hx Diabetes Mellitus Type 2: Yes - HEMATOLOGICAL/ONCOLOGICAL Hx Anemia: Yes - INTEGUMENTARY Other/Comment: mass left hip/REMOVED FEB 2014 - MUSCULOSKELETAL/RHEUMATOLOGICAL Hx Falls: No - GASTROINTESTINAL Hx Gastritis: Yes - GENITOURINARY/GYNECOLOGICAL Hx Genitourinary Disorders: Yes Hx Incontinence: Yes (ON DITROPAN) - PSYCHIATRIC Hx Depression: Yes Hx Substance Use: No - SURGICAL HISTORY Hx Surgeries: Yes Hx Amputation: Yes (RT.FOOT 2 TOES) Hx Vascular Access Device: Yes (port-a-cath insertion RCW) Other/Comment: debridment of ulcer on right leg, rt hip sx - ANESTHESIA Hx Anesthesia: Yes Hx Anesthesia Reactions: No Hx Malignant Hyperthermia: No Meds Allergies/Adverse Reactions: Allergies Allergy/AdvReac Type Severity Reaction Status Date / Time No Known Allergies Allergy Verified 11/13/16 15:53 - Medications Medications: Current Medications Albuterol/Ipratropium (Duoneb 3 Mg/0.5 Mg (3 Ml) Ud) 3 ml INH RQ4 [facility] Last Admin: 07/29/17 05:55 Dose: 3 ml Allopurinol (Zyloprim) 300 mg PO DAILY [facility] Last Admin: 07/29/17 11:04 Dose: 300 mg Bupropion HCl (Wellbutrin) 75 mg PO BID [facility] Last Admin: 07/29/17 11:03 Dose: 75 mg Dextrose (Dextrose 50% Inj) 0 ml IV STAT PRN; Protocol PRN Reason: Hypoglycemia Protocol Dextrose (Glutose 15) 0 gm PO ONCE PRN; Protocol PRN Reason: Hypoglycemia Protocol Famotidine (Pepcid) 20 mg PO DAILY [facility] Last Admin: 07/29/17 11:03 Dose: 20 mg Furosemide (Lasix) 20 mg PO DAILY [facility] Last Admin: 07/29/17 11:08 Dose: 20 mg Gabapentin (Neurontin) 400 mg PO BID [facility] Last Admin: 07/29/17 11:03 Dose: 400 mg Glucagon (Glucagen Diagnostic Kit) 0 mg IM STAT PRN; Protocol PRN Reason: Hypoglycemia Protocol Dextrose (Dextrose 5% In Water 1000 Ml) 1,000 mls @ 0 mls/hr IV .Q0M PRN; Protocol; Per Protocol PRN Reason: Hypoglycemia Protocol Azithromycin 500 mg/ Sodium (Chloride) 250 mls @ 250 mls/hr IVPB DAILY@1800 [facility] PRN Reason: Protocol Ceftriaxone Sodium 1 gm/ (Sodium Chloride) 100 mls @ 100 mls/hr IVPB Q12H [facility] PRN Reason: Protocol Last Admin: 07/29/17 07:55 Dose: 100 mls/hr Insulin Human Regular (Novolin R) 0 unit SC ACHS [facility] PRN Reason: Protocol Last Admin: 07/29/17 12:58 Dose: 2 unit Metolazone (Zaroxolyn) 5 mg PO DAILY [facility] Last Admin: 07/29/17 11:04 Dose: 5 mg Montelukast Sodium (Singulair) 10 mg PO HS [facility] Last Admin: 07/28/17 21:44 Dose: 10 mg Oxybutynin Chloride (Ditropan Tab) 5 mg PO DAILY [facility] Last Admin: 07/29/17 11:00 Dose: 5 mg Rivaroxaban (Xarelto) 15 mg PO DAILY [facility] Last Admin: 07/29/17 11:03 Dose: 15 mg Physical Exam - Head Exam Head Exam: ATRAUMATIC, NORMOCEPHALIC - ENT Exam ENT Exam: Mucous Membranes Moist - Respiratory Exam Respiratory Exam: Decreased Breath Sounds - Cardiovascular Exam Cardiovascular Exam: REGULAR RHYTHM Results - Vital Signs Recent Vital Signs: Last Vital Signs Temp 97.6 F 07/29/17 11:30 Pulse 92 H 07/29/17 12:49 Resp 20 07/29/17 11:30 BP 112/75 07/29/17 11:30 Pulse Ox 95 07/29/17 11:30 - Labs Result Diagrams: 07/29/17 15:02 07/29/17 03:42 Labs: Laboratory Results - last 24 hr 07/28/17 07/28/17 07/28/17 16:20 16:27 16:27 WBC 7.8 RBC 3.79 L Hgb 10.6 L Hct 32.2 L MCV 85.1 D MCH 27.9 MCHC 32.8 L RDW 14.4 Plt Count 208 MPV 7.2 Neut % (Auto) 74.0 Lymph % (Auto) 12.6 L [place] % (Auto) 11.3 H Eos % (Auto) 1.6 Baso % (Auto) 0.5 Neut # (Auto) 5.7 Lymph # (Auto) 1.0 [place] # (Auto) 0.9 H Eos # (Auto) 0.1 Baso # (Auto) 0.0 PT INR APTT pO2 25 L VBG pH 7.41 VBG pCO2 73 H* VBG HCO3 37.3 VBG Total CO2 48.5 H VBG O2 Sat (Calc) 44.1 VBG Base Excess 17.6 H VBG Potassium 2.8 L Sodium 140.0 144 Chloride 96.0 L 89 L Glucose 167 H Lactate 1.5 FiO2 21.0 Crit Value Called To Dr sandoval Crit Value Called By [facility] Crit Value Read Back Y Blood Gas Notified Time 1628 Potassium 2.6 L Carbon Dioxide 40 H* Anion Gap 18 BUN 32 H Creatinine 1.6 H Est GFR ( Amer) 39 Est GFR (Non-Af Amer) 33 POC Glucose (mg/dL) Random Glucose 174 H Calcium 9.2 Phosphorus Magnesium Total Bilirubin 0.7 AST 23 ALT 28 Alkaline Phosphatase 114 Total Creatine Kinase 66 CK-MB (Mass) 0.75 Troponin I 0.0250 NT-Pro-B Natriuret Pep 440 Total Protein 7.6 Albumin 3.7 Globulin 3.9 Albumin/Globulin Ratio 1.0 Venous Blood Potassium 2.8 L Urine Color Urine Clarity Urine pH Ur Specific [place] Urine Protein Urine Glucose (UA) Urine Ketones Urine Blood Urine Nitrate Urine Bilirubin Urine Urobilinogen Ur Leukocyte Esterase Urine WBC (Auto) Ur Squamous Epith Cells Urine Bacteria 07/28/17 07/28/17 07/28/17 16:27 17:17 20:31 WBC RBC Hgb Hct MCV MCH MCHC RDW Plt Count MPV Neut % (Auto) Lymph % (Auto) [place] % (Auto) Eos % (Auto) Baso % (Auto) Neut # (Auto) Lymph # (Auto) [place] # (Auto) Eos # (Auto) Baso # (Auto) PT 12.6 H INR 1.2 APTT 31 pO2 VBG pH VBG pCO2 VBG HCO3 VBG Total CO2 VBG O2 Sat (Calc) VBG Base Excess VBG Potassium Sodium Chloride Glucose Lactate FiO2 Crit Value Called To Crit Value Called By Crit Value Read Back Blood Gas Notified Time Potassium Carbon Dioxide Anion Gap BUN Creatinine Est GFR ( Amer) Est GFR (Non-Af Amer) POC Glucose (mg/dL) Random Glucose Calcium Phosphorus 2.5 Magnesium 1.4 L Total Bilirubin AST ALT Alkaline Phosphatase Total Creatine Kinase CK-MB (Mass) Troponin I NT-Pro-B Natriuret Pep Total Protein Albumin Globulin Albumin/Globulin Ratio Venous Blood Potassium Urine Color Straw Urine Clarity Clear Urine pH 7.0 Ur Specific [place] 1.005 Urine Protein Negative Urine Glucose (UA) Normal Urine Ketones Negative Urine Blood Negative Urine Nitrate Negative Urine Bilirubin Negative Urine Urobilinogen Normal Ur Leukocyte Esterase Neg Urine WBC (Auto) 1 Ur Squamous Epith Cells 1 Urine Bacteria Occ H 07/28/17 07/28/17 07/29/17 21:37 23:58 03:42 WBC RBC Hgb Hct MCV MCH MCHC RDW Plt Count MPV Neut % (Auto) Lymph % (Auto) [place] % (Auto) Eos % (Auto) Baso % (Auto) Neut # (Auto) Lymph # (Auto) [place] # (Auto) Eos # (Auto) Baso # (Auto) PT INR APTT pO2 VBG pH VBG pCO2 VBG HCO3 VBG Total CO2 VBG O2 Sat (Calc) VBG Base Excess VBG Potassium Sodium 143 Chloride 95 L Glucose Lactate FiO2 Crit Value Called To Crit Value Called By Crit Value Read Back Blood Gas Notified Time Potassium 3.2 L Carbon Dioxide 35 H Anion Gap 16 BUN 30 H Creatinine 1.4 H Est GFR ( Amer) 46 Est GFR (Non-Af Amer) 38 POC Glucose (mg/dL) 192 H 175 H Random Glucose 155 H Calcium 8.6 Phosphorus Magnesium Total Bilirubin 0.6 AST 19 ALT 13 Alkaline Phosphatase 89 Total Creatine Kinase CK-MB (Mass) Troponin I NT-Pro-B Natriuret Pep Total Protein 7.1 Albumin 3.4 L Globulin 3.7 Albumin/Globulin Ratio 0.9 L Venous Blood Potassium Urine Color Urine Clarity Urine pH Ur Specific [place] Urine Protein Urine Glucose (UA) Urine Ketones Urine Blood Urine Nitrate Urine Bilirubin Urine Urobilinogen Ur Leukocyte Esterase Urine WBC (Auto) Ur Squamous Epith Cells Urine Bacteria 07/29/17 07/29/17 07/29/17 07:42 08:30 12:19 WBC RBC Hgb Hct MCV MCH MCHC RDW Plt Count MPV Neut % (Auto) Lymph % (Auto) [place] % (Auto) Eos % (Auto) Baso % (Auto) Neut # (Auto) Lymph # (Auto) [place] # (Auto) Eos # (Auto) Baso # (Auto) PT INR APTT pO2 VBG pH VBG pCO2 VBG HCO3 VBG Total CO2 VBG O2 Sat (Calc) VBG Base Excess VBG Potassium Sodium Chloride Glucose Lactate FiO2 Crit Value Called To Crit Value Called By Crit Value Read Back Blood Gas Notified Time Potassium Carbon Dioxide Anion Gap BUN Creatinine Est GFR ( Amer) Est GFR (Non-Af Amer) POC Glucose (mg/dL) 163 H 163 H 229 H Random Glucose Calcium Phosphorus Magnesium Total Bilirubin AST ALT Alkaline Phosphatase Total Creatine Kinase CK-MB (Mass) Troponin I NT-Pro-B Natriuret Pep Total Protein Albumin Globulin Albumin/Globulin Ratio Venous Blood Potassium Urine Color Urine Clarity Urine pH Ur Specific [place] Urine Protein Urine Glucose (UA) Urine Ketones Urine Blood Urine Nitrate Urine Bilirubin Urine Urobilinogen Ur Leukocyte Esterase Urine WBC (Auto) Ur Squamous Epith Cells Urine Bacteria 07/29/17 15:02 WBC 6.2 RBC 3.45 L Hgb 9.7 L Hct 29.5 L MCV 85.4 MCH 28.1 MCHC 32.9 L RDW 14.7 H Plt Count 195 MPV 7.7 Neut % (Auto) 74.5 Lymph % (Auto) 10.9 L [place] % (Auto) 11.3 H Eos % (Auto) 2.6 Baso % (Auto) 0.7 Neut # (Auto) 4.6 Lymph # (Auto) 0.7 L [place] # (Auto) 0.7 Eos # (Auto) 0.2 Baso # (Auto) 0.0 PT INR APTT pO2 VBG pH VBG pCO2 VBG HCO3 VBG Total CO2 VBG O2 Sat (Calc) VBG Base Excess VBG Potassium Sodium Chloride Glucose Lactate FiO2 Crit Value Called To Crit Value Called By Crit Value Read Back Blood Gas Notified Time Potassium Carbon Dioxide Anion Gap BUN Creatinine Est GFR ( Amer) Est GFR (Non-Af Amer) POC Glucose (mg/dL) Random Glucose Calcium Phosphorus Magnesium Total Bilirubin AST ALT Alkaline Phosphatase Total Creatine Kinase CK-MB (Mass) Troponin I NT-Pro-B Natriuret Pep Total Protein Albumin Globulin Albumin/Globulin Ratio Venous Blood Potassium Urine Color Urine Clarity Urine pH Ur Specific [place] Urine Protein Urine Glucose (UA) Urine Ketones Urine Blood Urine Nitrate Urine Bilirubin Urine Urobilinogen Ur Leukocyte Esterase Urine WBC (Auto) Ur Squamous Epith Cells Urine Bacteria Assessment & Plan (1) COPD (chronic obstructive pulmonary disease) Assessment and Plan: continue nebulizer treatment Potassium supplement IV fluids Antibiotics Follow-up culture and sensitivity Status: Chronic (2) History of lung cancer Status: Chronic
[2017-07-29] MEDS: Azithromycin 500 MG in Sodium Chloride 0.9% 250 ML IVPB SCH (18:01)
[2017-07-29 20:38] LABS: CALCIUM 8.8 mg/dl (8.6-10.4)
[2017-07-30] MEDS ORDERED: Potassium Chloride 20 mEq ER Tab PO STA (00:24)
[2017-07-30] MEDS: Albuterol-Ipratrop 3 mg / 0.5 (3 ml) UD INH SCH ×5 (03:13→19:32)
--- NOTE | 2017-07-30 07:29 | CP.PCM.PN ---
<MooseVanna SMarilee - Last Filed: 07/30/17 16:51> Subjective - Date & Time of Evaluation Date of Evaluation: 07/30/17 Time of Evaluation: 07:00 - Subjective Subjective: Medicine Progress Note: Patient was seen and examined at bedside in the AM. Patient states she is still coughing but a bit less. Per nurse the patient did not use the bipap at night. Patient states she feels tired as no one lets her sleep during the night. Objective - Vital Signs/Intake and Output Vital Signs (last 24 hours): Temp Pulse Resp BP Pulse Ox 98.4 F 93 H 20 93/62 L 99 07/30/17 04:20 07/30/17 04:20 07/30/17 04:20 07/30/17 04:20 07/30/17 04:20 Intake and Output: 07/30/17 07/30/17 06:59 18:59 Intake Total 620 Output Total 950 Balance -330 - Medications Medications: Current Medications Albuterol/Ipratropium (Duoneb 3 Mg/0.5 Mg (3 Ml) Ud) 3 ml INH RQ4 [facility] Last Admin: 07/30/17 07:13 Dose: 3 ml Allopurinol (Zyloprim) 300 mg PO DAILY [facility] Last Admin: 07/29/17 11:04 Dose: 300 mg Bupropion HCl (Wellbutrin) 75 mg PO BID [facility] Last Admin: 07/29/17 19:03 Dose: 75 mg Dextrose (Dextrose 50% Inj) 0 ml IV STAT PRN; Protocol PRN Reason: Hypoglycemia Protocol Dextrose (Glutose 15) 0 gm PO ONCE PRN; Protocol PRN Reason: Hypoglycemia Protocol Famotidine (Pepcid) 20 mg PO DAILY [facility] Last Admin: 07/29/17 11:03 Dose: 20 mg Furosemide (Lasix) 20 mg PO DAILY [facility] Last Admin: 07/29/17 11:08 Dose: 20 mg Gabapentin (Neurontin) 400 mg PO BID [facility] Last Admin: 07/29/17 19:03 Dose: 400 mg Glucagon (Glucagen Diagnostic Kit) 0 mg IM STAT PRN; Protocol PRN Reason: Hypoglycemia Protocol Dextrose (Dextrose 5% In Water 1000 Ml) 1,000 mls @ 0 mls/hr IV .Q0M PRN; Protocol; Per Protocol PRN Reason: Hypoglycemia Protocol Azithromycin 500 mg/ Sodium (Chloride) 250 mls @ 250 mls/hr IVPB DAILY@1800 [facility] PRN Reason: Protocol Last Admin: 07/29/17 18:01 Dose: 250 mls/hr Ceftriaxone Sodium 1 gm/ (Sodium Chloride) 100 mls @ 100 mls/hr IVPB Q12H [facility] PRN Reason: Protocol Last Admin: 07/30/17 05:20 Dose: 100 mls/hr Insulin Human Regular (Novolin R) 0 unit SC ACHS [facility] PRN Reason: Protocol Last Admin: 07/29/17 21:11 Dose: Not Given Metolazone (Zaroxolyn) 5 mg PO DAILY [facility] Last Admin: 07/29/17 11:04 Dose: 5 mg Montelukast Sodium (Singulair) 10 mg PO HS [facility] Last Admin: 07/29/17 21:26 Dose: 10 mg Oxybutynin Chloride (Ditropan Tab) 5 mg PO DAILY [facility] Last Admin: 07/29/17 11:00 Dose: 5 mg Rivaroxaban (Xarelto) 15 mg PO DAILY [facility] Last Admin: 07/29/17 11:03 Dose: 15 mg - Labs Labs: 07/29/17 15:02 07/29/17 19:47 PT 12.6 SECONDS (9.7-12.2) H 07/28/17 16:27 INR 1.2 07/28/17 16:27 APTT 31 SECONDS (21-34) 07/28/17 16:27 - Constitutional Appears: No Acute Distress, Chronically Ill - Head Exam Head Exam: ATRAUMATIC, NORMAL INSPECTION - Eye Exam Eye Exam: EOMI, Normal appearance - ENT Exam ENT Exam: Mucous Membranes Moist - Respiratory Exam Respiratory Exam: Decreased Breath Sounds, NORMAL BREATHING PATTERN - Cardiovascular Exam Cardiovascular Exam: REGULAR RHYTHM, +S1, +S2 - GI/Abdominal Exam GI & Abdominal Exam: Soft, Normal Bowel Sounds. absent: Tenderness Additional comments: obese abdomen - Extremities Exam Extremities Exam: Tenderness (chronic LE tenderness ) - Neurological Exam Neurological Exam: Alert, Awake, Oriented x3 - Psychiatric Exam Psychiatric exam: Flat Affect - Skin Skin Exam: Normal Color Assessment and Plan - Assessment and Plan (Free Text) Assessment: 1.) Shortness of breath - secondary to COPD exacerbation - Chest xray: opacification left mid lower lung zone. combination of atelectasis. similar to previous CXR on previous visit. - Pulm Consult: Dr. Diaz --> help appreciated - BIPAP PRN O2 Saturation <96% - Medications * Singulair 10mg PO QHS * Azithromycin 500mg daily (started 07/29/17) * Rocephin 1gm q12h (started 07/29/17) 2.) Hypokalemia secondary to medication vs. Conn Syndrome - K 2.6 on admission (07/28/17) --> 3.2 - Given in the emergency room 20 meq x 2 - 40 meq x 1 - Continue to monitor - f/u aldosterone - f/u renin angiotensin 3.) Weakness - secondary to COPD exacerbation vs. hypokalemia - Head CT: Trace age-appropriate age related neuro degenerative change. No definite acute intracranial findings. Follow-up CT or MRI are available as clinically warranted. 4.) History of DM - Insulin SS - Accucheck achs - Hypoglycemic protocol - hA1c (07/30/17) 7.6 5.) HTN - ECHO (03/10/16): EF 55%, left ventricular ejection fraction is within normal range - Continue Medications * Metolazone 5 mg PO QD * Lasix 20 mg POQD 6.) History of HLD - Lipid panel: Triglycerides 149; Total Cholesterol 215; LDL 149; HDL 30 7.) Diabetic Neuropathy - Gabapentin 400mg PO BID 8.) History of Anemia - H/H 9.4/28.1 - Continue to monitor 9.) History of Depression - Wellbutrin 75mg PO BID 10.) History of Gastritis - Pepcid 20mg PO QD 11.) History of Lung CA 12.) History of PAD 13.) History of Urinary incontinence - Oxybutynin 5 mg PO QD 14.) Prophylaxis - Pepcid 20mg POQD - Xarelto 15mg POQD - Physical Therapy - patient would like to go to a rehab Case discussed with Dr. Shreyas Virk PGY-1 <Asim Pritchett Jr. - Last Filed: 08/01/17 14:57> Objective - Vital Signs/Intake and Output Vital Signs (last 24 hours): Temp Pulse Resp BP Pulse Ox 98.1 F 99 H 20 105/69 99 08/01/17 07:10 08/01/17 13:28 08/01/17 07:10 08/01/17 09:24 08/01/17 07:10 Intake and Output: 08/01/17 08/01/17 06:59 18:59 Intake Total 590 600 Balance 590 600 - Medications Medications: Current Medications Albuterol/Ipratropium (Duoneb 3 Mg/0.5 Mg (3 Ml) Ud) 3 ml INH RQ4 [facility] Last Admin: 08/01/17 11:19 Dose: 3 ml Allopurinol (Zyloprim) 300 mg PO DAILY [facility] Last Admin: 08/01/17 09:24 Dose: 300 mg Bupropion HCl (Wellbutrin) 75 mg PO BID [facility] Last Admin: 08/01/17 09:24 Dose: 75 mg Dextrose (Dextrose 50% Inj) 0 ml IV STAT PRN; Protocol PRN Reason: Hypoglycemia Protocol Dextrose (Glutose 15) 0 gm PO ONCE PRN; Protocol PRN Reason: Hypoglycemia Protocol Famotidine (Pepcid) 20 mg PO DAILY [facility] Last Admin: 08/01/17 09:24 Dose: 20 mg Furosemide (Lasix) 20 mg PO DAILY [facility] Last Admin: 08/01/17 09:24 Dose: 20 mg Gabapentin (Neurontin) 400 mg PO BID [facility] Last Admin: 08/01/17 09:24 Dose: 400 mg Glucagon (Glucagen Diagnostic Kit) 0 mg IM STAT PRN; Protocol PRN Reason: Hypoglycemia Protocol Dextrose (Dextrose 5% In Water 1000 Ml) 1,000 mls @ 0 mls/hr IV .Q0M PRN; Protocol; Per Protocol PRN Reason: Hypoglycemia Protocol Azithromycin 500 mg/ Sodium (Chloride) 250 mls @ 250 mls/hr IVPB DAILY@1800 [facility] PRN Reason: Protocol Last Admin: 07/31/17 17:29 Dose: 250 mls/hr Ceftriaxone Sodium 1 gm/ (Sodium Chloride) 100 mls @ 100 mls/hr IVPB Q12H [facility] PRN Reason: Protocol Last Admin: 08/01/17 04:56 Dose: 100 mls/hr Insulin Human Regular (Novolin R) 0 unit SC ACHS [facility] PRN Reason: Protocol Last Admin: 08/01/17 12:30 Dose: 2 unit Metolazone (Zaroxolyn) 5 mg PO DAILY [facility] Last Admin: 08/01/17 09:24 Dose: 5 mg Montelukast Sodium (Singulair) 10 mg PO HS [facility] Last Admin: 07/31/17 21:19 Dose: 10 mg Oxybutynin Chloride (Ditropan Tab) 5 mg PO DAILY [facility] Last Admin: 08/01/17 09:24 Dose: 5 mg Rivaroxaban (Xarelto) 15 mg PO DAILY [facility] Last Admin: 08/01/17 09:24 Dose: 15 mg - Labs Labs: 08/01/17 07:01 08/01/17 07:01 PT 12.6 SECONDS (9.7-12.2) H 07/28/17 16:27 INR 1.2 07/28/17 16:27 APTT 31 SECONDS (21-34) 07/28/17 16:27 Attending/Attestation - Attestation I have personally seen and examined this patient.: Yes I have fully participated in the care of the patient.: Yes I have reviewed all pertinent clinical information, including history, physical exam and plan: Yes Notes (Text): 08/01/17 14:57 agree with resident note findings and plan of care.
[2017-07-30 07:36] LABS: BASO % 0.7 % (0.0-2.0); EOS # 0.1 K/uL (0.0-0.7); EOS % 2.8 % (0.0-4.0); HEMOGLOBIN 9.4 g/dL (11.0-16.0); LYMPH # 0.6 K/uL (1.0-4.3); LYMPH % 14.3 % (20.0-40.0); MEAN CELL VOLUME 85.1 fL (81.0-99.0); MEAN CORPUSCULAR HEMOGLOBIN 28.4 pg (27.0-31.0); MEAN CORPUSCULAR HGB CONC 33.3 g/dL (33.0-37.0); MEAN PLATELET VOLUME 7.3 fL (7.2-11.7); MONO # 0.6 K/uL (0.0-0.8); MONO % 12.4 % (0.0-10.0); NEUT # 3.2 K/uL (1.8-7.0); NEUT % 69.8 % (50.0-75.0); RBC 3.31 Mil/uL (3.80-5.20); RED CELL DISTRIBUTION WIDTH 14.5 % (11.5-14.5); WHITE BLOOD COUNT 4.5 K/uL (4.8-10.8)
[2017-07-30 07:47] LABS: ALB/GLOB RATIO 0.9 (1.0-2.1); ALBUMIN 3.4 g/dL (3.5-5.0); CALCIUM 8.1 mg/dl (8.6-10.4)
[2017-07-30] MEDS: (Novolin R) Insulin Human Regular 100 units/ml vial SC SCH ×4 (08:28→21:39)
[2017-07-30] MEDS ORDERED: Potassium Chloride 20 mEq ER Tab PO ONE (09:08)
[2017-07-30] MEDS: metOLazone 5 MG TAB PO SCH (09:23)
[2017-07-30] MEDS ORDERED: Potassium Chloride 20 mEq ER Tab PO SCH (10:00)
--- NOTE | 2017-07-30 12:41 | CP.PCM.PN ---
Subjective - Date & Time of Evaluation Date of Evaluation: 07/30/17 Time of Evaluation: 10:55 - Subjective Subjective: the patient seen and examined Less cough but still feel lethargic and tired Afebrile Objective - Vital Signs/Intake and Output Vital Signs (last 24 hours): Temp Pulse Resp BP Pulse Ox 97.9 F 83 18 91/62 L 98 07/30/17 07:30 07/30/17 09:07 07/30/17 07:30 07/30/17 09:22 07/30/17 07:30 Intake and Output: 07/30/17 07/30/17 06:59 18:59 Intake Total 620 Output Total 950 Balance -330 - Medications Medications: Current Medications Albuterol/Ipratropium (Duoneb 3 Mg/0.5 Mg (3 Ml) Ud) 3 ml INH RQ4 [facility] Last Admin: 07/30/17 11:01 Dose: 3 ml Allopurinol (Zyloprim) 300 mg PO DAILY [facility] Last Admin: 07/30/17 09:23 Dose: 300 mg Bupropion HCl (Wellbutrin) 75 mg PO BID [facility] Last Admin: 07/30/17 09:23 Dose: 75 mg Dextrose (Dextrose 50% Inj) 0 ml IV STAT PRN; Protocol PRN Reason: Hypoglycemia Protocol Dextrose (Glutose 15) 0 gm PO ONCE PRN; Protocol PRN Reason: Hypoglycemia Protocol Famotidine (Pepcid) 20 mg PO DAILY [facility] Last Admin: 07/30/17 09:23 Dose: 20 mg Furosemide (Lasix) 20 mg PO DAILY [facility] Last Admin: 07/30/17 09:22 Dose: 20 mg Gabapentin (Neurontin) 400 mg PO BID [facility] Last Admin: 07/30/17 09:22 Dose: 400 mg Glucagon (Glucagen Diagnostic Kit) 0 mg IM STAT PRN; Protocol PRN Reason: Hypoglycemia Protocol Dextrose (Dextrose 5% In Water 1000 Ml) 1,000 mls @ 0 mls/hr IV .Q0M PRN; Protocol; Per Protocol PRN Reason: Hypoglycemia Protocol Azithromycin 500 mg/ Sodium (Chloride) 250 mls @ 250 mls/hr IVPB DAILY@1800 [facility] PRN Reason: Protocol Last Admin: 07/29/17 18:01 Dose: 250 mls/hr Ceftriaxone Sodium 1 gm/ (Sodium Chloride) 100 mls @ 100 mls/hr IVPB Q12H [facility] PRN Reason: Protocol Last Admin: 07/30/17 05:20 Dose: 100 mls/hr Insulin Human Regular (Novolin R) 0 unit SC ACHS [facility] PRN Reason: Protocol Last Admin: 07/30/17 12:34 Dose: 2 unit Metolazone (Zaroxolyn) 5 mg PO DAILY [facility] Last Admin: 07/30/17 09:23 Dose: 5 mg Montelukast Sodium (Singulair) 10 mg PO HS [facility] Last Admin: 07/29/17 21:26 Dose: 10 mg Oxybutynin Chloride (Ditropan Tab) 5 mg PO DAILY [facility] Last Admin: 07/30/17 09:23 Dose: 5 mg Rivaroxaban (Xarelto) 15 mg PO DAILY [facility] Last Admin: 07/30/17 09:23 Dose: 15 mg - Labs Labs: 07/30/17 07:13 07/30/17 07:13 PT 12.6 SECONDS (9.7-12.2) H 07/28/17 16:27 INR 1.2 07/28/17 16:27 APTT 31 SECONDS (21-34) 07/28/17 16:27 - Head Exam Head Exam: ATRAUMATIC, NORMOCEPHALIC - Eye Exam Eye Exam: Normal appearance - ENT Exam ENT Exam: Mucous Membranes Moist - Neck Exam Neck Exam: Normal Inspection - Respiratory Exam Respiratory Exam: Decreased Breath Sounds - Cardiovascular Exam Cardiovascular Exam: REGULAR RHYTHM Assessment and Plan (1) COPD (chronic obstructive pulmonary disease) Assessment & Plan: Continue antibiotics, nebulizer treatment Potassium supplement Status: Chronic (2) History of lung cancer Status: Chronic
[2017-07-30] MEDS: Azithromycin 500 MG in Sodium Chloride 0.9% 250 ML IVPB SCH (18:08)
[2017-07-31] MEDS: Albuterol-Ipratrop 3 mg / 0.5 (3 ml) UD INH SCH ×6 (00:34→19:42)
--- NOTE | 2017-07-31 06:52 | CP.PCM.PN ---
<Annabel Arrington - Last Filed: 07/31/17 16:38> Subjective - Date & Time of Evaluation Date of Evaluation: 07/31/17 Time of Evaluation: 06:51 - Subjective Subjective: Progress Note for Dr. Pritchett Patient seen and examined at bedside on [facility]. Patient denies fever, chills, chest pain, shortness of breath. Patient states she feels tired. Patient knows she needs to work with physical therapy. Objective - Vital Signs/Intake and Output Vital Signs (last 24 hours): Temp Pulse Resp BP Pulse Ox 98.9 F 93 H 20 100/68 96 07/31/17 04:38 07/31/17 04:38 07/31/17 04:38 07/31/17 04:38 07/31/17 04:38 Intake and Output: 07/30/17 07/31/17 18:59 06:59 Intake Total 670 Output Total 400 Balance 270 - Medications Medications: Current Medications Albuterol/Ipratropium (Duoneb 3 Mg/0.5 Mg (3 Ml) Ud) 3 ml INH RQ4 [facility] Last Admin: 07/31/17 04:50 Dose: Not Given Allopurinol (Zyloprim) 300 mg PO DAILY [facility] Last Admin: 07/30/17 09:23 Dose: 300 mg Bupropion HCl (Wellbutrin) 75 mg PO BID [facility] Last Admin: 07/30/17 18:07 Dose: 75 mg Dextrose (Dextrose 50% Inj) 0 ml IV STAT PRN; Protocol PRN Reason: Hypoglycemia Protocol Dextrose (Glutose 15) 0 gm PO ONCE PRN; Protocol PRN Reason: Hypoglycemia Protocol Famotidine (Pepcid) 20 mg PO DAILY [facility] Last Admin: 07/30/17 09:23 Dose: 20 mg Furosemide (Lasix) 20 mg PO DAILY [facility] Last Admin: 07/30/17 09:22 Dose: 20 mg Gabapentin (Neurontin) 400 mg PO BID [facility] Last Admin: 07/30/17 18:07 Dose: 400 mg Glucagon (Glucagen Diagnostic Kit) 0 mg IM STAT PRN; Protocol PRN Reason: Hypoglycemia Protocol Dextrose (Dextrose 5% In Water 1000 Ml) 1,000 mls @ 0 mls/hr IV .Q0M PRN; Protocol; Per Protocol PRN Reason: Hypoglycemia Protocol Azithromycin 500 mg/ Sodium (Chloride) 250 mls @ 250 mls/hr IVPB DAILY@1800 [facility] PRN Reason: Protocol Last Admin: 07/30/17 18:08 Dose: 250 mls/hr Ceftriaxone Sodium 1 gm/ (Sodium Chloride) 100 mls @ 100 mls/hr IVPB Q12H [facility] PRN Reason: Protocol Last Admin: 07/31/17 05:40 Dose: 100 mls/hr Insulin Human Regular (Novolin R) 0 unit SC ACHS [facility] PRN Reason: Protocol Last Admin: 07/30/17 21:39 Dose: Not Given Metolazone (Zaroxolyn) 5 mg PO DAILY [facility] Last Admin: 07/30/17 09:23 Dose: 5 mg Montelukast Sodium (Singulair) 10 mg PO HS [facility] Last Admin: 07/30/17 21:22 Dose: 10 mg Oxybutynin Chloride (Ditropan Tab) 5 mg PO DAILY [facility] Last Admin: 07/30/17 09:23 Dose: 5 mg Rivaroxaban (Xarelto) 15 mg PO DAILY [facility] Last Admin: 07/30/17 09:23 Dose: 15 mg - Labs Labs: 07/30/17 07:13 07/30/17 07:13 PT 12.6 SECONDS (9.7-12.2) H 07/28/17 16:27 INR 1.2 07/28/17 16:27 APTT 31 SECONDS (21-34) 07/28/17 16:27 Assessment and Plan - Assessment and Plan (Free Text) Assessment: 1.) Shortness of breath - secondary to COPD exacerbation - Chest xray: opacification left mid lower lung zone. combination of atelectasis. similar to previous CXR on previous visit. - Pulm Consult: Dr. Diaz --> help appreciated - BIPAP PRN O2 Saturation <96% - Medications * Singulair 10mg PO QHS * Azithromycin 500mg daily (started 07/29/17) * Rocephin 1gm q12h (started 07/29/17) 2.) Hypokalemia secondary to medication vs. Conn Syndrome - K 2.6 on admission (07/28/17) --> 3.2 - Given in the emergency room 20 meq x 2 - 40 meq x 1 - Continue to monitor - f/u aldosterone - f/u renin angiotensin 3.) Weakness - secondary to COPD exacerbation vs. hypokalemia - Head CT: Trace age-appropriate age related neuro degenerative change. No definite acute intracranial findings. Follow-up CT or MRI are available as clinically warranted. 4.) History of DM - Insulin SS - Accucheck achs - Hypoglycemic protocol - hA1c (07/30/17) 7.6 5.) HTN - ECHO (03/10/16): EF 55%, left ventricular ejection fraction is within normal range - Continue Medications * Metolazone 5 mg PO QD * Lasix 20 mg POQD 6.) History of HLD - Lipid panel: Triglycerides 149; Total Cholesterol 215; LDL 149; HDL 30 7.) Diabetic Neuropathy - Gabapentin 400mg PO BID 8.) History of Anemia - H/H 9.4/28.1 - Continue to monitor 9.) History of Depression - Wellbutrin 75mg PO BID 10.) History of Gastritis - Pepcid 20mg PO QD 11.) History of Lung CA 12.) History of PAD 13.) History of Urinary incontinence - Oxybutynin 5 mg PO QD 14.) Prophylaxis - Pepcid 20mg POQD - Xarelto 15mg POQD - Physical Therapy - patient would like to go to a rehab Case discussed with Dr. Shreyas Arrington, DO PGY1 <Asim Pritchett Jr. - Last Filed: 08/01/17 14:57> Objective - Vital Signs/Intake and Output Vital Signs (last 24 hours): Temp Pulse Resp BP Pulse Ox 98.1 F 99 H 20 105/69 99 08/01/17 07:10 08/01/17 13:28 08/01/17 07:10 08/01/17 09:24 08/01/17 07:10 Intake and Output: 08/01/17 08/01/17 06:59 18:59 Intake Total 590 600 Balance 590 600 - Medications Medications: Current Medications Albuterol/Ipratropium (Duoneb 3 Mg/0.5 Mg (3 Ml) Ud) 3 ml INH RQ4 [facility] Last Admin: 08/01/17 11:19 Dose: 3 ml Allopurinol (Zyloprim) 300 mg PO DAILY [facility] Last Admin: 08/01/17 09:24 Dose: 300 mg Bupropion HCl (Wellbutrin) 75 mg PO BID [facility] Last Admin: 08/01/17 09:24 Dose: 75 mg Dextrose (Dextrose 50% Inj) 0 ml IV STAT PRN; Protocol PRN Reason: Hypoglycemia Protocol Dextrose (Glutose 15) 0 gm PO ONCE PRN; Protocol PRN Reason: Hypoglycemia Protocol Famotidine (Pepcid) 20 mg PO DAILY [facility] Last Admin: 08/01/17 09:24 Dose: 20 mg Furosemide (Lasix) 20 mg PO DAILY [facility] Last Admin: 08/01/17 09:24 Dose: 20 mg Gabapentin (Neurontin) 400 mg PO BID [facility] Last Admin: 08/01/17 09:24 Dose: 400 mg Glucagon (Glucagen Diagnostic Kit) 0 mg IM STAT PRN; Protocol PRN Reason: Hypoglycemia Protocol Dextrose (Dextrose 5% In Water 1000 Ml) 1,000 mls @ 0 mls/hr IV .Q0M PRN; Protocol; Per Protocol PRN Reason: Hypoglycemia Protocol Azithromycin 500 mg/ Sodium (Chloride) 250 mls @ 250 mls/hr IVPB DAILY@1800 [facility] PRN Reason: Protocol Last Admin: 07/31/17 17:29 Dose: 250 mls/hr Ceftriaxone Sodium 1 gm/ (Sodium Chloride) 100 mls @ 100 mls/hr IVPB Q12H [facility] PRN Reason: Protocol Last Admin: 08/01/17 04:56 Dose: 100 mls/hr Insulin Human Regular (Novolin R) 0 unit SC ACHS [facility] PRN Reason: Protocol Last Admin: 08/01/17 12:30 Dose: 2 unit Metolazone (Zaroxolyn) 5 mg PO DAILY [facility] Last Admin: 08/01/17 09:24 Dose: 5 mg Montelukast Sodium (Singulair) 10 mg PO HS [facility] Last Admin: 07/31/17 21:19 Dose: 10 mg Oxybutynin Chloride (Ditropan Tab) 5 mg PO DAILY [facility] Last Admin: 08/01/17 09:24 Dose: 5 mg Rivaroxaban (Xarelto) 15 mg PO DAILY [facility] Last Admin: 08/01/17 09:24 Dose: 15 mg - Labs Labs: 08/01/17 07:01 08/01/17 07:01 PT 12.6 SECONDS (9.7-12.2) H 07/28/17 16:27 INR 1.2 07/28/17 16:27 APTT 31 SECONDS (21-34) 07/28/17 16:27 Attending/Attestation - Attestation I have personally seen and examined this patient.: Yes I have fully participated in the care of the patient.: Yes I have reviewed all pertinent clinical information, including history, physical exam and plan: Yes Notes (Text): 08/01/17 14:57 agree with resident note findings and plan of care.
[2017-07-31] MEDS: (Novolin R) Insulin Human Regular 100 units/ml vial SC SCH ×4 (08:19→22:00)
[2017-07-31 08:28] LABS: BASO % 0.9 % (0.0-2.0); EOS # 0.1 K/uL (0.0-0.7); EOS % 2.9 % (0.0-4.0); HEMOGLOBIN 9.6 g/dL (11.0-16.0); LYMPH % 20.2 % (20.0-40.0); MEAN CELL VOLUME 84.7 fL (81.0-99.0); MEAN CORPUSCULAR HEMOGLOBIN 28.1 pg (27.0-31.0); MEAN CORPUSCULAR HGB CONC 33.2 g/dL (33.0-37.0); MEAN PLATELET VOLUME 7.3 fL (7.2-11.7); MONO # 0.6 K/uL (0.0-0.8); MONO % 12.6 % (0.0-10.0); NEUT # 3.1 K/uL (1.8-7.0); NEUT % 63.4 % (50.0-75.0); NRBC % 0.1 % (0.0-2.0); RBC 3.42 Mil/uL (3.80-5.20); RED CELL DISTRIBUTION WIDTH 14.3 % (11.5-14.5); WHITE BLOOD COUNT 4.9 K/uL (4.8-10.8)
[2017-07-31 08:43] LABS: ALB/GLOB RATIO 0.9 (1.0-2.1); ALBUMIN 3.5 g/dL (3.5-5.0); CALCIUM 8.9 mg/dl (8.6-10.4)
[2017-07-31] MEDS: metOLazone 5 MG TAB PO SCH (09:12)
[2017-07-31] MEDS ORDERED: Potassium Chloride 20 mEq ER Tab PO ONE (11:16)
--- NOTE | 2017-07-31 16:17 | CP.PCM.PN ---
Subjective - Date & Time of Evaluation Date of Evaluation: 07/31/17 Time of Evaluation: 14:00 - Subjective Subjective: patient seen and examined Patient states her cough and breathing is better Patient is more awake and responsive Afebrile Denies any chest pain Patient feels cold Objective - Vital Signs/Intake and Output Vital Signs (last 24 hours): Temp Pulse Resp BP Pulse Ox 98.0 F 86 20 107/71 96 07/31/17 07:10 07/31/17 08:00 07/31/17 07:10 07/31/17 09:11 07/31/17 07:10 Intake and Output: 07/31/17 07/31/17 06:59 18:59 Intake Total 670 Output Total 400 Balance 270 - Medications Medications: Current Medications Albuterol/Ipratropium (Duoneb 3 Mg/0.5 Mg (3 Ml) Ud) 3 ml INH RQ4 [facility] Last Admin: 07/31/17 16:10 Dose: 3 ml Allopurinol (Zyloprim) 300 mg PO DAILY [facility] Last Admin: 07/31/17 09:11 Dose: 300 mg Bupropion HCl (Wellbutrin) 75 mg PO BID [facility] Last Admin: 07/31/17 09:12 Dose: 75 mg Dextrose (Dextrose 50% Inj) 0 ml IV STAT PRN; Protocol PRN Reason: Hypoglycemia Protocol Dextrose (Glutose 15) 0 gm PO ONCE PRN; Protocol PRN Reason: Hypoglycemia Protocol Famotidine (Pepcid) 20 mg PO DAILY [facility] Last Admin: 07/31/17 09:11 Dose: 20 mg Furosemide (Lasix) 20 mg PO DAILY [facility] Last Admin: 07/31/17 09:11 Dose: 20 mg Gabapentin (Neurontin) 400 mg PO BID [facility] Last Admin: 07/31/17 09:12 Dose: 400 mg Glucagon (Glucagen Diagnostic Kit) 0 mg IM STAT PRN; Protocol PRN Reason: Hypoglycemia Protocol Dextrose (Dextrose 5% In Water 1000 Ml) 1,000 mls @ 0 mls/hr IV .Q0M PRN; Protocol; Per Protocol PRN Reason: Hypoglycemia Protocol Azithromycin 500 mg/ Sodium (Chloride) 250 mls @ 250 mls/hr IVPB DAILY@1800 [facility] PRN Reason: Protocol Last Admin: 07/30/17 18:08 Dose: 250 mls/hr Ceftriaxone Sodium 1 gm/ (Sodium Chloride) 100 mls @ 100 mls/hr IVPB Q12H [facility] PRN Reason: Protocol Last Admin: 07/31/17 05:40 Dose: 100 mls/hr Insulin Human Regular (Novolin R) 0 unit SC ACHS [facility] PRN Reason: Protocol Last Admin: 07/31/17 12:22 Dose: 2 unit Metolazone (Zaroxolyn) 5 mg PO DAILY [facility] Last Admin: 07/31/17 09:12 Dose: 5 mg Montelukast Sodium (Singulair) 10 mg PO HS [facility] Last Admin: 07/30/17 21:22 Dose: 10 mg Oxybutynin Chloride (Ditropan Tab) 5 mg PO DAILY [facility] Last Admin: 07/31/17 09:12 Dose: 5 mg Rivaroxaban (Xarelto) 15 mg PO DAILY [facility] Last Admin: 07/31/17 09:11 Dose: 15 mg - Labs Labs: 07/31/17 08:19 07/31/17 08:19 PT 12.6 SECONDS (9.7-12.2) H 07/28/17 16:27 INR 1.2 07/28/17 16:27 APTT 31 SECONDS (21-34) 07/28/17 16:27 - Head Exam Head Exam: ATRAUMATIC, NORMOCEPHALIC - Eye Exam Eye Exam: Normal appearance - ENT Exam ENT Exam: Mucous Membranes Moist - Neck Exam Neck Exam: Normal Inspection - Respiratory Exam Respiratory Exam: Decreased Breath Sounds - Cardiovascular Exam Cardiovascular Exam: REGULAR RHYTHM - GI/Abdominal Exam GI & Abdominal Exam: Soft, Normal Bowel Sounds Assessment and Plan (1) COPD (chronic obstructive pulmonary disease) Assessment & Plan: continue nebulizer treatment DC Rocephin cont xarelto Status: Chronic (2) History of lung cancer Status: Chronic
--- NOTE | 2017-07-31 17:07 | CARD ---
APPROVED REPORT EKG Measurement Heart [id number] <Conclusion> Normal sinus rhythm Possible Left atrial enlargement Left axis deviation Low voltage QRS Possible Anterolateral infarct, age undetermined Abnormal ECG
[2017-07-31] MEDS: Azithromycin 500 MG in Sodium Chloride 0.9% 250 ML IVPB SCH (17:29)
--- NOTE | 2017-07-31 20:33 | CP.PCM.PN ---
Subjective - Date & Time of Evaluation Date of Evaluation: 08/01/17 Time of Evaluation: 06:00 - Subjective Subjective: Medicine Progress Note: Patient seen and examined at bedside in the AM. Patient denies fever, chills, chest pain, shortness of breath. Patient states she feels tired and states she would like to have more physical therapy. Objective - Vital Signs/Intake and Output Vital Signs (last 24 hours): Temp Pulse Resp BP Pulse Ox 98.4 F 92 H 20 113/75 98 07/31/17 17:09 07/31/17 17:09 07/31/17 17:09 07/31/17 17:09 07/31/17 17:09 - Medications Medications: Current Medications Albuterol/Ipratropium (Duoneb 3 Mg/0.5 Mg (3 Ml) Ud) 3 ml INH RQ4 [facility] Last Admin: 07/31/17 19:42 Dose: 3 ml Allopurinol (Zyloprim) 300 mg PO DAILY [facility] Last Admin: 07/31/17 09:11 Dose: 300 mg Bupropion HCl (Wellbutrin) 75 mg PO BID [facility] Last Admin: 07/31/17 17:28 Dose: 75 mg Dextrose (Dextrose 50% Inj) 0 ml IV STAT PRN; Protocol PRN Reason: Hypoglycemia Protocol Dextrose (Glutose 15) 0 gm PO ONCE PRN; Protocol PRN Reason: Hypoglycemia Protocol Famotidine (Pepcid) 20 mg PO DAILY [facility] Last Admin: 07/31/17 09:11 Dose: 20 mg Furosemide (Lasix) 20 mg PO DAILY [facility] Last Admin: 07/31/17 09:11 Dose: 20 mg Gabapentin (Neurontin) 400 mg PO BID [facility] Last Admin: 07/31/17 17:28 Dose: 400 mg Glucagon (Glucagen Diagnostic Kit) 0 mg IM STAT PRN; Protocol PRN Reason: Hypoglycemia Protocol Dextrose (Dextrose 5% In Water 1000 Ml) 1,000 mls @ 0 mls/hr IV .Q0M PRN; Protocol; Per Protocol PRN Reason: Hypoglycemia Protocol Azithromycin 500 mg/ Sodium (Chloride) 250 mls @ 250 mls/hr IVPB DAILY@1800 [facility] PRN Reason: Protocol Last Admin: 07/31/17 17:29 Dose: 250 mls/hr Ceftriaxone Sodium 1 gm/ (Sodium Chloride) 100 mls @ 100 mls/hr IVPB Q12H [facility] PRN Reason: Protocol Last Admin: 07/31/17 17:28 Dose: 100 mls/hr Insulin Human Regular (Novolin R) 0 unit SC ACHS [facility] PRN Reason: Protocol Last Admin: 07/31/17 16:36 Dose: 1 unit Metolazone (Zaroxolyn) 5 mg PO DAILY [facility] Last Admin: 07/31/17 09:12 Dose: 5 mg Montelukast Sodium (Singulair) 10 mg PO HS [facility] Last Admin: 07/30/17 21:22 Dose: 10 mg Oxybutynin Chloride (Ditropan Tab) 5 mg PO DAILY [facility] Last Admin: 07/31/17 09:12 Dose: 5 mg Rivaroxaban (Xarelto) 15 mg PO DAILY [facility] Last Admin: 07/31/17 09:11 Dose: 15 mg - Labs Labs: 07/31/17 08:19 07/31/17 08:19 PT 12.6 SECONDS (9.7-12.2) H 07/28/17 16:27 INR 1.2 07/28/17 16:27 APTT 31 SECONDS (21-34) 07/28/17 16:27 - Constitutional Appears: No Acute Distress, Chronically Ill - Head Exam Head Exam: ATRAUMATIC, NORMAL INSPECTION - Eye Exam Eye Exam: EOMI, Normal appearance - ENT Exam ENT Exam: Mucous Membranes Moist - Respiratory Exam Respiratory Exam: Decreased Breath Sounds, NORMAL BREATHING PATTERN - Cardiovascular Exam Cardiovascular Exam: REGULAR RHYTHM, +S1, +S2 - GI/Abdominal Exam GI & Abdominal Exam: Soft, Normal Bowel Sounds. absent: Tenderness - Extremities Exam Extremities Exam: Tenderness (chronic lower extremity tenderness ) - Neurological Exam Neurological Exam: Alert, Awake, Oriented x3 - Psychiatric Exam Psychiatric exam: Normal Affect, Normal Mood - Skin Skin Exam: Normal Color Assessment and Plan - Assessment and Plan (Free Text) Assessment: 1.) Shortness of breath - secondary to COPD exacerbation - Chest xray: opacification left mid lower lung zone. combination of atelectasis. similar to previous CXR on previous visit. - Pulm Consult: Dr. Diaz --> help appreciated - BIPAP PRN O2 Saturation <96% - Medications * Singulair 10mg PO QHS * Azithromycin 500mg daily (started 07/29/17) * Rocephin 1gm q12h (started 07/29/17) 2.) Hypokalemia secondary to medication vs. Conn Syndrome - K 2.6 on admission (07/28/17) --> 3.2 - Given in the emergency room 20 meq x 2 - 40 meq x 1 - Continue to monitor - f/u aldosterone - f/u renin angiotensin 3.) Weakness - secondary to COPD exacerbation vs. hypokalemia - Head CT: Trace age-appropriate age related neuro degenerative change. No definite acute intracranial findings. Follow-up CT or MRI are available as clinically warranted. 4.) History of DM - Insulin SS - Accucheck achs - Hypoglycemic protocol - hA1c (07/30/17) 7.6 5.) HTN - ECHO (03/10/16): EF 55%, left ventricular ejection fraction is within normal range - Continue Medications * Metolazone 5 mg PO QD * Lasix 20 mg POQD 6.) History of HLD - Lipid panel: Triglycerides 149; Total Cholesterol 215; LDL 149; HDL 30 7.) Diabetic Neuropathy - Gabapentin 400mg PO BID 8.) History of Anemia - H/H 9.4/28.1 - Continue to monitor 9.) History of Depression - Wellbutrin 75mg PO BID 10.) History of Gastritis - Pepcid 20mg PO QD 11.) History of Lung CA 12.) History of PAD 13.) History of Urinary incontinence - Oxybutynin 5 mg PO QD 14.) Prophylaxis - Pepcid 20mg POQD - Xarelto 15mg POQD - Physical Therapy - patient would like to go to a rehab
[2017-08-01] MEDS: Albuterol-Ipratrop 3 mg / 0.5 (3 ml) UD INH SCH ×7 (00:32→23:33)
[2017-08-01 07:05] LABS: BASO # 0.1 K/uL (0.0-0.2); BASO % 1.3 % (0.0-2.0); EOS # 0.1 K/uL (0.0-0.7); EOS % 3.2 % (0.0-4.0); HEMOGLOBIN 9.3 g/dL (11.0-16.0); LYMPH # 0.6 K/uL (1.0-4.3); LYMPH % 13.2 % (20.0-40.0); MEAN CELL VOLUME 84.4 fL (81.0-99.0); MEAN CORPUSCULAR HEMOGLOBIN 27.8 pg (27.0-31.0); MEAN PLATELET VOLUME 7.1 fL (7.2-11.7); MONO # 0.5 K/uL (0.0-0.8); NEUT # 3.1 K/uL (1.8-7.0); NEUT % 70.3 % (50.0-75.0); NRBC % 0.1 % (0.0-2.0); RBC 3.35 Mil/uL (3.80-5.20); RED CELL DISTRIBUTION WIDTH 14.5 % (11.5-14.5); WHITE BLOOD COUNT 4.4 K/uL (4.8-10.8)
[2017-08-01 07:25] LABS: ALBUMIN 3.4 g/dL (3.5-5.0); CALCIUM 9.2 mg/dl (8.6-10.4)
[2017-08-01] MEDS: (Novolin R) Insulin Human Regular 100 units/ml vial SC SCH ×4 (08:07→21:50)
[2017-08-01] MEDS: metOLazone 5 MG TAB PO SCH (09:24)
[2017-08-01] MEDS: Magnesium Sulfate 1 gm in D5W 1 GM/100 ML BAG IVPB SCH ×2 (11:04→12:30)
[2017-08-01] MEDS ORDERED: Potassium Chloride 20 mEq ER Tab PO ONE (11:15)
--- NOTE | 2017-08-01 13:18 | CP.PCM.PN ---
Subjective - Date & Time of Evaluation Date of Evaluation: 08/01/17 Time of Evaluation: 09:00 - Subjective Subjective: patient seen and examined Lying comfortably in no acute distress Patient states she is feeling much better Awake and responsive Afebrile Continue nebulizer treatment and antibiotics Objective - Vital Signs/Intake and Output Vital Signs (last 24 hours): Temp Pulse Resp BP Pulse Ox 98.1 F 89 20 105/69 99 08/01/17 07:10 08/01/17 07:50 08/01/17 07:10 08/01/17 09:24 08/01/17 07:10 Intake and Output: 08/01/17 08/01/17 06:59 18:59 Intake Total 590 Balance 590 - Medications Medications: Current Medications Albuterol/Ipratropium (Duoneb 3 Mg/0.5 Mg (3 Ml) Ud) 3 ml INH RQ4 [facility] Last Admin: 08/01/17 11:19 Dose: 3 ml Allopurinol (Zyloprim) 300 mg PO DAILY [facility] Last Admin: 08/01/17 09:24 Dose: 300 mg Bupropion HCl (Wellbutrin) 75 mg PO BID [facility] Last Admin: 08/01/17 09:24 Dose: 75 mg Dextrose (Dextrose 50% Inj) 0 ml IV STAT PRN; Protocol PRN Reason: Hypoglycemia Protocol Dextrose (Glutose 15) 0 gm PO ONCE PRN; Protocol PRN Reason: Hypoglycemia Protocol Famotidine (Pepcid) 20 mg PO DAILY [facility] Last Admin: 08/01/17 09:24 Dose: 20 mg Furosemide (Lasix) 20 mg PO DAILY [facility] Last Admin: 08/01/17 09:24 Dose: 20 mg Gabapentin (Neurontin) 400 mg PO BID [facility] Last Admin: 08/01/17 09:24 Dose: 400 mg Glucagon (Glucagen Diagnostic Kit) 0 mg IM STAT PRN; Protocol PRN Reason: Hypoglycemia Protocol Dextrose (Dextrose 5% In Water 1000 Ml) 1,000 mls @ 0 mls/hr IV .Q0M PRN; Protocol; Per Protocol PRN Reason: Hypoglycemia Protocol Azithromycin 500 mg/ Sodium (Chloride) 250 mls @ 250 mls/hr IVPB DAILY@1800 [facility] PRN Reason: Protocol Last Admin: 07/31/17 17:29 Dose: 250 mls/hr Ceftriaxone Sodium 1 gm/ (Sodium Chloride) 100 mls @ 100 mls/hr IVPB Q12H [facility] PRN Reason: Protocol Last Admin: 08/01/17 04:56 Dose: 100 mls/hr Insulin Human Regular (Novolin R) 0 unit SC ACHS [facility] PRN Reason: Protocol Last Admin: 08/01/17 12:30 Dose: 2 unit Metolazone (Zaroxolyn) 5 mg PO DAILY [facility] Last Admin: 08/01/17 09:24 Dose: 5 mg Montelukast Sodium (Singulair) 10 mg PO HS [facility] Last Admin: 07/31/17 21:19 Dose: 10 mg Oxybutynin Chloride (Ditropan Tab) 5 mg PO DAILY [facility] Last Admin: 08/01/17 09:24 Dose: 5 mg Rivaroxaban (Xarelto) 15 mg PO DAILY [facility] Last Admin: 08/01/17 09:24 Dose: 15 mg - Labs Labs: 08/01/17 07:01 08/01/17 07:01 PT 12.6 SECONDS (9.7-12.2) H 07/28/17 16:27 INR 1.2 07/28/17 16:27 APTT 31 SECONDS (21-34) 07/28/17 16:27 Assessment and Plan (1) COPD (chronic obstructive pulmonary disease) Status: Chronic (2) History of lung cancer Status: Chronic
[2017-08-01] MEDS: Azithromycin 500 MG in Sodium Chloride 0.9% 250 ML IVPB SCH (18:00)
[2017-08-02] MEDS: Albuterol-Ipratrop 3 mg / 0.5 (3 ml) UD INH SCH ×4 (03:22→19:47)
[2017-08-02 07:35] LABS: BASO # 0.1 K/uL (0.0-0.2); BASO % 1.4 % (0.0-2.0); EOS # 0.2 K/uL (0.0-0.7); EOS % 3.6 % (0.0-4.0); LYMPH # 0.7 K/uL (1.0-4.3); LYMPH % 14.9 % (20.0-40.0); MEAN CELL VOLUME 84.2 fL (81.0-99.0); MEAN CORPUSCULAR HEMOGLOBIN 27.9 pg (27.0-31.0); MEAN CORPUSCULAR HGB CONC 33.1 g/dL (33.0-37.0); MEAN PLATELET VOLUME 7.2 fL (7.2-11.7); MONO # 0.5 K/uL (0.0-0.8); MONO % 10.8 % (0.0-10.0); NEUT # 3.3 K/uL (1.8-7.0); NEUT % 69.3 % (50.0-75.0); NRBC % 0.1 % (0.0-2.0); RBC 3.58 Mil/uL (3.80-5.20); RED CELL DISTRIBUTION WIDTH 14.3 % (11.5-14.5); WHITE BLOOD COUNT 4.7 K/uL (4.8-10.8)
[2017-08-02] MEDS: (Novolin R) Insulin Human Regular 100 units/ml vial SC SCH ×4 (08:13→21:32)
[2017-08-02 08:21] LABS: ALB/GLOB RATIO 0.9 (1.0-2.1); ALBUMIN 3.6 g/dL (3.5-5.0); CALCIUM 9.5 mg/dl (8.6-10.4)
--- NOTE | 2017-08-02 08:22 | CP.PCM.PN ---
Subjective - Date & Time of Evaluation Date of Evaluation: 08/02/17 Time of Evaluation: 08:19 - Subjective Subjective: PGY-[address] Pritchett's service: Pt seen and examined at bedside. Nursing reports no acute events overnight. Patient denies fever, chills, chest pain, shortness of breath. Reports bloody nose yesterday afternoon but denies recurrence. Pt for discharge today to [facility]. Objective - Vital Signs/Intake and Output Vital Signs (last 24 hours): Temp Pulse Resp BP Pulse Ox 98.0 F 86 20 110/67 98 08/02/17 04:32 08/02/17 04:32 08/02/17 04:32 08/02/17 06:00 08/02/17 04:32 Intake and Output: 08/02/17 08/02/17 06:59 18:59 Intake Total 700 Output Total 200 Balance 500 - Medications Medications: Current Medications Albuterol/Ipratropium (Duoneb 3 Mg/0.5 Mg (3 Ml) Ud) 3 ml INH RQ4 [facility] Last Admin: 08/02/17 07:10 Dose: 3 ml Allopurinol (Zyloprim) 300 mg PO DAILY [facility] Last Admin: 08/01/17 09:24 Dose: 300 mg Bupropion HCl (Wellbutrin) 75 mg PO BID [facility] Last Admin: 08/01/17 17:33 Dose: 75 mg Dextrose (Dextrose 50% Inj) 0 ml IV STAT PRN; Protocol PRN Reason: Hypoglycemia Protocol Dextrose (Glutose 15) 0 gm PO ONCE PRN; Protocol PRN Reason: Hypoglycemia Protocol Famotidine (Pepcid) 20 mg PO DAILY [facility] Last Admin: 08/01/17 09:24 Dose: 20 mg Furosemide (Lasix) 20 mg PO DAILY [facility] Last Admin: 08/01/17 09:24 Dose: 20 mg Gabapentin (Neurontin) 400 mg PO BID [facility] Last Admin: 08/01/17 17:33 Dose: 400 mg Glucagon (Glucagen Diagnostic Kit) 0 mg IM STAT PRN; Protocol PRN Reason: Hypoglycemia Protocol Dextrose (Dextrose 5% In Water 1000 Ml) 1,000 mls @ 0 mls/hr IV .Q0M PRN; Protocol; Per Protocol PRN Reason: Hypoglycemia Protocol Azithromycin 500 mg/ Sodium (Chloride) 250 mls @ 250 mls/hr IVPB DAILY@1800 [facility] PRN Reason: Protocol Last Admin: 08/01/17 18:00 Dose: 250 mls/hr Ceftriaxone Sodium 1 gm/ (Sodium Chloride) 100 mls @ 100 mls/hr IVPB Q12H [facility] PRN Reason: Protocol Last Admin: 08/02/17 04:43 Dose: 100 mls/hr Insulin Human Regular (Novolin R) 0 unit SC ACHS [facility] PRN Reason: Protocol Last Admin: 08/02/17 08:13 Dose: 1 unit Metolazone (Zaroxolyn) 5 mg PO DAILY [facility] Last Admin: 08/01/17 09:24 Dose: 5 mg Montelukast Sodium (Singulair) 10 mg PO HS [facility] Last Admin: 08/01/17 21:37 Dose: 10 mg Oxybutynin Chloride (Ditropan Tab) 5 mg PO DAILY [facility] Last Admin: 08/01/17 09:24 Dose: 5 mg Rivaroxaban (Xarelto) 15 mg PO DAILY [facility] Last Admin: 08/01/17 09:24 Dose: 15 mg - Labs Labs: 08/02/17 07:25 08/01/17 07:01 PT 12.6 SECONDS (9.7-12.2) H 07/28/17 16:27 INR 1.2 07/28/17 16:27 APTT 31 SECONDS (21-34) 07/28/17 16:27 - Additional Findings Additional findings: - Constitutional Appears: No Acute Distress, Chronically Ill - Head Exam Head Exam: ATRAUMATIC, NORMAL INSPECTION - Eye Exam Eye Exam: EOMI, Normal appearance - ENT Exam ENT Exam: Mucous Membranes Moist - Respiratory Exam Respiratory Exam: Decreased Breath Sounds, NORMAL BREATHING PATTERN - Cardiovascular Exam Cardiovascular Exam: REGULAR RHYTHM, +S1, +S2 - GI/Abdominal Exam GI & Abdominal Exam: Soft, Normal Bowel Sounds. absent: Tenderness - Extremities Exam Extremities Exam: Tenderness (chronic lower extremity tenderness ) - Neurological Exam Neurological Exam: Alert, Awake, Oriented x3 - Psychiatric Exam Psychiatric exam: Normal Affect, Normal Mood - Skin Skin Exam: Normal Color Assessment and Plan - Assessment and Plan (Free Text) Plan: 1.) Shortness of breath - secondary to COPD exacerbation - Chest xray: opacification left mid lower lung zone. combination of atelectasis. similar to previous CXR on previous visit. - Pulm Consult: Dr. Joe --> help appreciated - BIPAP PRN O2 Saturation <96% - Medications * Singulair 10mg PO QHS * Azithromycin 500mg daily (started 07/29/17) * Rocephin 1gm q12h (started 07/29/17) 2.) Hypokalemia secondary to medication vs. Conn Syndrome - K 2.6 on admission (07/28/17) --> 3.2 - Given in the emergency room 20 meq x 2 - 40 meq x 1 - Continue to monitor - f/u aldosterone - f/u renin angiotensin 3.) Weakness - secondary to COPD exacerbation vs. hypokalemia - Head CT: Trace age-appropriate age related neuro degenerative change. No definite acute intracranial findings. Follow-up CT or MRI are available as clinically warranted. 4.) History of DM - Insulin SS - Accucheck achs - Hypoglycemic protocol - hA1c (07/30/17) 7.6 5.) HTN - ECHO (03/10/16): EF 55%, left ventricular ejection fraction is within normal range - Continue Medications * Metolazone 5 mg PO QD * Lasix 20 mg POQD 6.) History of HLD - Lipid panel: Triglycerides 149; Total Cholesterol 215; LDL 149; HDL 30 7.) Diabetic Neuropathy - Gabapentin 400mg PO BID 8.) History of Anemia - H/H 9.4/28.1 - Continue to monitor 9.) History of Depression - Wellbutrin 75mg PO BID 10.) History of Gastritis - Pepcid 20mg PO QD 11.) History of Lung CA 12.) History of PAD 13.) History of Urinary incontinence - Oxybutynin 5 mg PO QD 14.) Prophylaxis - Pepcid 20mg POQD - Xarelto 15mg POQD - Physical Therapy - patient would like to go to a rehab Disposition: Pt for discharge today to [facility]. Kashif Salcedo PGY-[address] Pritchett
[2017-08-02] MEDS: metOLazone 5 MG TAB PO SCH (09:46)
--- NOTE | 2017-08-02 11:32 | CP.PCM.DIS ---
Provider - Provider Date of Admission: 07/28/17 17:58 Attending physician: Asim Pritchett Jr, MD Primary care physician: Shreyas Consults: Joe Time Spent in preparation of Discharge (in minutes): 35 Diagnosis - Discharge Diagnosis (1) COPD exacerbation Status: Acute Comment: See hospital course (2) Generalized weakness Status: Acute Comment: CT head showed age-related degenerative changes Hospital Course - Lab Results Lab Results: Micro Results 07/28/17 17:17 Urine Urine Culture - Final >100,000 CFU/ML. MULTIPLE SPECIES. SUGGEST REPEAT SPECIMEN. Most Recent Lab Values WBC 4.7 K/uL (4.8-10.8) L 08/02/17 07:25 RBC 3.58 Mil/uL (3.80-5.20) L 08/02/17 07:25 Hgb 10.0 g/dL (11.0-16.0) L 08/02/17 07:25 Hct 30.1 % (34.0-47.0) L 08/02/17 07:25 MCV 84.2 fL (81.0-99.0) 08/02/17 07:25 MCH 27.9 pg (27.0-31.0) 08/02/17 07:25 MCHC 33.1 g/dL (33.0-37.0) 08/02/17 07:25 RDW 14.3 % (11.5-14.5) 08/02/17 07:25 Plt Count 219 K/uL (130-400) 08/02/17 07:25 MPV 7.2 fL (7.2-11.7) 08/02/17 07:25 Neut % (Auto) 69.3 % (50.0-75.0) 08/02/17 07:25 Lymph % (Auto) 14.9 % (20.0-40.0) L 08/02/17 07:25 [place] % (Auto) 10.8 % (0.0-10.0) H 08/02/17 07:25 Eos % (Auto) 3.6 % (0.0-4.0) 08/02/17 07:25 Baso % (Auto) 1.4 % (0.0-2.0) 08/02/17 07:25 Neut # (Auto) 3.3 K/uL (1.8-7.0) 08/02/17 07:25 Lymph # (Auto) 0.7 K/uL (1.0-4.3) L 08/02/17 07:25 [place] # (Auto) 0.5 K/uL (0.0-0.8) 08/02/17 07:25 Eos # (Auto) 0.2 K/uL (0.0-0.7) 08/02/17 07:25 Baso # (Auto) 0.1 K/uL (0.0-0.2) 08/02/17 07:25 PT 12.6 SECONDS (9.7-12.2) H 07/28/17 16:27 INR 1.2 07/28/17 16:27 APTT 31 SECONDS (21-34) 07/28/17 16:27 pO2 25 mm/Hg (30-55) L 07/28/17 16:20 VBG pH 7.41 (7.32-7.43) 07/28/17 16:20 VBG pCO2 73 mmHg (40-60) H* 07/28/17 16:20 VBG HCO3 37.3 mmol/L 07/28/17 16:20 VBG Total CO2 48.5 mmol/L (22-28) H 07/28/17 16:20 VBG O2 Sat (Calc) 44.1 % (40-65) 07/28/17 16:20 VBG Base Excess 17.6 mmol/L (0.0-2.0) H 07/28/17 16:20 VBG Potassium 2.8 mmol/L (3.6-5.2) L 07/28/17 16:20 Sodium 140.0 mmol/l (132-148) 07/28/17 16:20 Chloride 96.0 mmol/L (98-107) L 07/28/17 16:20 Glucose 167 mg/dl (65-105) H 07/28/17 16:20 Lactate 1.5 mmol/L (0.7-2.1) 07/28/17 16:20 FiO2 21.0 % 07/28/17 16:20 Crit Value Called To Dr sandoval 07/28/17 16:20 Crit Value Called By Ozzy carey 07/28/17 16:20 Crit Value Read Back Y 07/28/17 16:20 Blood Gas Notified Time 1628 07/28/17 16:20 Sodium 141 mmol/L (132-148) 08/02/17 07:25 Potassium 3.8 mmol/L (3.6-5.2) 08/02/17 07:25 Chloride 93 mmol/L (98-107) L 08/02/17 07:25 Carbon Dioxide 40 mmol/L (22-30) H* 08/02/17 07:25 Anion Gap 12 (10-20) 08/02/17 07:25 BUN 20 mg/dL (7-17) H 08/02/17 07:25 Creatinine 1.3 mg/dL (0.7-1.2) H 08/02/17 07:25 Est GFR ( Amer) 50 08/02/17 07:25 Est GFR (Non-Af Amer) 41 08/02/17 07:25 POC Glucose (mg/dL) 168 mg/dL (65-110) H 08/02/17 06:24 Random Glucose 159 mg/dL (65-105) H 08/02/17 07:25 Hemoglobin A1c 7.6 % (4.2-6.5) H 07/30/17 07:13 Calcium 9.5 mg/dl (8.6-10.4) 08/02/17 07:25 Phosphorus 3.9 mg/dL (2.5-4.5) 08/01/17 07:01 Magnesium 1.5 mg/dL (1.6-2.3) L 08/01/17 07:01 Total Bilirubin 0.5 mg/dL (0.2-1.3) 08/02/17 07:25 AST 23 U/L (14-36) 08/02/17 07:25 ALT 20 U/L (9-52) 08/02/17 07:25 Alkaline Phosphatase 106 U/L (38-126) 08/02/17 07:25 Total Creatine Kinase 66 U/L (30-135) 07/28/17 16:27 CK-MB (Mass) 0.75 ng/mL (0.0-3.38) 07/28/17 16:27 Troponin I 0.0250 ng/mL (0.00-0.120) 07/28/17 16:27 NT-Pro-B Natriuret Pep 440 pg/mL (0-900) 07/28/17 16:27 Total Protein 7.5 g/dL (6.3-8.3) 08/02/17 07:25 Albumin 3.6 g/dL (3.5-5.0) 08/02/17 07:25 Globulin 3.9 gm/dL (2.2-3.9) 08/02/17 07:25 Albumin/Globulin Ratio 0.9 (1.0-2.1) L 08/02/17 07:25 Triglycerides 149 mg/dL (0-149) 07/30/17 07:13 Cholesterol 215 mg/dL (0-199) H 07/30/17 07:13 LDL Cholesterol Direct 149 mg/dL (0-129) H 07/30/17 07:13 HDL Cholesterol 30 mg/dL (30-70) 07/30/17 07:13 Venous Blood Potassium 2.8 mmol/L (3.6-5.2) L 07/28/17 16:20 Urine Color Straw (YELLOW) 07/28/17 17:17 Urine Clarity Clear (Clear) 07/28/17 17:17 Urine pH 7.0 (5.0-8.0) 07/28/17 17:17 Ur Specific [place] 1.005 (1.003-1.030) 07/28/17 17:17 Urine Protein Negative mg/dL (NEGATIVE) 07/28/17 17:17 Urine Glucose (UA) Normal mg/dL (Normal) 07/28/17 17:17 Urine Ketones Negative mg/dL (NEGATIVE) 07/28/17 17:17 Urine Blood Negative (NEGATIVE) 07/28/17 17:17 Urine Nitrate Negative (NEGATIVE) 07/28/17 17:17 Urine Bilirubin Negative (NEGATIVE) 07/28/17 17:17 Urine Urobilinogen Normal mg/dL (0.2-1.0) 07/28/17 17:17 Ur Leukocyte Esterase Neg Shalini/uL (Negative) 07/28/17 17:17 Urine WBC (Auto) 1 /hpf (0-5) 07/28/17 17:17 Ur Squamous Epith Cells 1 /hpf (0-5) 07/28/17 17:17 Urine Bacteria Occ (<OCC) H 07/28/17 17:17 - Hospital Course Hospital Course: On admission: 61F presents with weakness, sleepy, slurred speech for three weeks. Patient was brought in by daughter. Patient was found to be hypokalemic at 2.6. T waves showed flattening on EKG. Patient was given potassium chloride on IVPB. Patient denies any complaints at this time except for some difficulty breathing. Patient is a poor historian due to difficulty with recollection. Patient states that she takes potassium at home but ran out. Hospital course: Patient admitted on 07/28/17 for COPD exacerbation and hypokalemia. CXR showed opacity so patient started on prophylactic Ceph/Azithromycin. K was 2.6 on admission. Patient restarted on home meds for CHF/HTN and depression. Pt on BiPAP PRN. Consult to DR Diaz, wraparound facilitator who guided antibiotic stewardship. Pt for discharge to [facility]. Discharge Exam - Additional Findings Additional findings: - Constitutional Appears: No Acute Distress, Chronically Ill, Morbidly Obese - Head Exam Head Exam: ATRAUMATIC, NORMAL INSPECTION - Eye Exam Eye Exam: EOMI, Normal appearance - ENT Exam ENT Exam: Mucous Membranes Moist - Respiratory Exam Respiratory Exam: Decreased Breath Sounds, NORMAL BREATHING PATTERN - Cardiovascular Exam Cardiovascular Exam: REGULAR RHYTHM, +S1, +S2 - GI/Abdominal Exam GI & Abdominal Exam: Soft, Normal Bowel Sounds. absent: Tenderness - Extremities Exam Extremities Exam: Tenderness (chronic lower extremity tenderness ) - Neurological Exam Neurological Exam: Alert, Awake, Oriented x3 - Psychiatric Exam Psychiatric exam: Normal Affect, Normal Mood - Skin Skin Exam: Normal Color Discharge Plan - Discharge Medications Prescriptions: Azithromycin [Z-Mario] 250 mg PO DAILY #6 tab - Follow Up Plan Condition: GOOD Disposition: REHAB FACILITY/REHAB UNIT Patient education suggested?: Yes Instructions: Hypokalemia (DC), Pneumonia, Adult (DC) Additional Instructions: Pt stable for discharge to [facility] per Dr. Pritchett Patient should stay on medications listed in med reconciliation. Patient should follow up with Dr. Pritchett regarding chronic medical conditions once discharged from rehab. She should follow up with [employer] Dr. Diaz as well after discharge regarding her COPD. Patient should return to the ED if symptoms return or worsen. Patient verbalized understanding to these instructions and agreed.
[2017-08-02] MEDS ORDERED: Azithromycin 500 MG in Sodium Chloride 0.9% 250 ML IVPB SCH (22:30)
[2017-08-03] MEDS: Albuterol-Ipratrop 3 mg / 0.5 (3 ml) UD INH SCH ×5 (00:04→16:33)
[2017-08-03 07:29] LABS: BASO # 0.1 K/uL (0.0-0.2); BASO % 1.3 % (0.0-2.0); EOS # 0.1 K/uL (0.0-0.7); HEMOGLOBIN 9.6 g/dL (11.0-16.0); LYMPH # 0.7 K/uL (1.0-4.3); LYMPH % 15.4 % (20.0-40.0); MEAN CELL VOLUME 84.2 fL (81.0-99.0); MEAN CORPUSCULAR HEMOGLOBIN 27.9 pg (27.0-31.0); MEAN CORPUSCULAR HGB CONC 33.2 g/dL (33.0-37.0); MEAN PLATELET VOLUME 7.1 fL (7.2-11.7); MONO # 0.6 K/uL (0.0-0.8); MONO % 12.5 % (0.0-10.0); NEUT # 3.2 K/uL (1.8-7.0); NEUT % 67.8 % (50.0-75.0); NRBC % 0.1 % (0.0-2.0); RBC 3.42 Mil/uL (3.80-5.20); RED CELL DISTRIBUTION WIDTH 14.3 % (11.5-14.5); WHITE BLOOD COUNT 4.7 K/uL (4.8-10.8)
[2017-08-03 07:54] LABS: ALB/GLOB RATIO 0.9 (1.0-2.1); ALBUMIN 3.3 g/dL (3.5-5.0); CALCIUM 9.1 mg/dl (8.6-10.4)
[2017-08-03] MEDS: (Novolin R) Insulin Human Regular 100 units/ml vial SC SCH ×2 (07:54→12:03)
[2017-08-03] MEDS: metOLazone 5 MG TAB PO SCH (09:47)
[2017-08-03 10:15] VITALS: O2SAT 99
[2017-08-03 16:44] VITALS: BP 99/69; PULSE 95; RESP 18; TEMP 98.5
--- NOTE | 2017-08-03 17:29 | CP.PCM.PN ---
Subjective - Date & Time of Evaluation Date of Evaluation: 08/03/17 Time of Evaluation: 11:40 - Subjective Subjective: Patient seen and examined at bedside today. Patient was resting comfortably in bed. She is feeling better today. Assessment/Plan: 1. COPD - Continue nebuizer treatment - Continue Azithromycin - Continue Ceftriaxone - Continue Singulair 2. Lung Cancer Objective - Vital Signs/Intake and Output Vital Signs (last 24 hours): Temp Pulse Resp BP Pulse Ox 98.5 F 95 H 18 99/69 L 99 08/03/17 15:00 08/03/17 15:00 08/03/17 15:00 08/03/17 15:00 08/03/17 15:00 Intake and Output: 08/03/17 08/03/17 06:59 18:59 Intake Total 700 Output Total 450 Balance 250 - Labs Labs: 08/03/17 07:20 08/03/17 07:20 PT 12.6 SECONDS (9.7-12.2) H 07/28/17 16:27 INR 1.2 07/28/17 16:27 APTT 31 SECONDS (21-34) 07/28/17 16:27 Assessment and Plan (1) COPD (chronic obstructive pulmonary disease) Status: Chronic (2) History of lung cancer Status: Chronic
== END 2017-08-03 16:59 | DRG 190 ==
LOC: C.ER 15:33 → C.9E 17:58 → C.6T 07-29 10:51
PROVIDERS: ADMIT Internal Medicine; ATTEND Internal Medicine
DX: J44.0 Chronic obstructive pulmonary disease with (acute) lower respiratory infection (principal); J18.9 Pneumonia, unspecified organism; J98.11 Atelectasis; L97.919 Non-pressure chronic ulcer of unspecified part of right lower leg with unspecified severity; E87.6 Hypokalemia; J44.1 Chronic obstructive pulmonary disease with (acute) exacerbation; K29.70 Gastritis, unspecified, without bleeding; R32 Unspecified urinary incontinence; Z79.01 Long term (current) use of anticoagulants; D64.9 Anemia, unspecified; E78.00 Pure hypercholesterolemia, unspecified; E78.5 Hyperlipidemia, unspecified; Z87.891 Personal history of nicotine dependence; I10 Essential (primary) hypertension; Z85.118 Personal history of other malignant neoplasm of bronchus and lung; Z99.81 Dependence on supplemental oxygen; E11.622 Type 2 diabetes mellitus with other skin ulcer